=== PATIENT | female | born 2000 | race Caucasian/White ===

== ENCOUNTER 2020-05-28 20:36 | Emergency (ER) | payer MEDICAID, SELFPAY ==
--- NOTE | 2020-05-28 20:38 | USR_ITS ---
PROCEDURE INFORMATION: Exam: US First Trimester, Transabdominal and US , Transvaginal Exam date and time: 05/28/2020 8:45 PM Age: 20 years old Clinical indication: complicated by abdominal or pelvic pain; Epigastric; First trimester; Gestational age or lmp: 8 w 3d; ; Additional info: Abd pain TECHNIQUE: Imaging protocol: Real-time transabdominal obstetrical ultrasound of the maternal pelvis and a first trimester , less than 14 weeks 0 days, with image documentation. Transvaginal imaging was used for better evaluation of the fetus, adnexa, and/or cervix. COMPARISON: US gallbladder [id number] 05/28/2020 8:54 PM FINDINGS: Gestation: Intrauterine gestation. Yolk sac is unremarkable. Embryonic/ heart rate: 180 beats per minute. Placenta: Unremarkable. No subchorionic bleed. Amniotic fluid: Amniotic fluid is unremarkable for gestational age. BIOMETRY: Gestational age (AUA): 8 weeks 5 days. MATERNAL: Uterus: Unremarkable. Cervix: Unremarkable. Right adnexa: Unremarkable. Left adnexa: Unremarkable. Intraperitoneal space: No intraperitoneal free fluid. US/US OB <= 14 weeks fetus [id number] IMPRESSION: 1. Single living intrauterine with estimated gestational age of 8 weeks 5 days.
--- NOTE | 2020-05-28 20:38 | USR_ITS ---
PROCEDURE INFORMATION: Exam: US Abdomen, Limited; Right Upper Quadrant Exam date and time: 05/28/2020 8:44 PM Age: 20 years old Clinical indication: Abdominal pain; Acute; ; Additional info: Abd pain TECHNIQUE: Imaging protocol: US abdomen. Real time ultrasound with image documentation. Limited exam focused on the right upper quadrant. COMPARISON: No relevant prior studies available. FINDINGS: Liver: The liver is mildly heterogeneous and hyperechoic, suggesting fatty infiltration. No intrahepatic or extrahepatic biliary dilation identified. Gallbladder: The gallbladder is unremarkable. No gallstones, sludge, gallbladder wall thickening, or pericholecystic fluid identified. Sonographic Roy sign not present. Common bile duct: The common bile duct is within normal limits for caliber at 0.4 cm. No common bile duct stone identified. Pancreas: Limited visualization of the pancreas due to bowel gas. Visualized portion is unremarkable. Right kidney: The right kidney measures 11.4 cm in length and is unremarkable. No hydronephrosis, calculi, or masses identified involving the right kidney. US/US gall bladder [id number] IMPRESSION: 1. No gallstones identified.
[2020-05-28 20:41] VITALS: PULSE 65; RESP 22; O2SAT 99; BMI 41.5
[2020-05-28 20:46] VITALS: BP 104/41
[2020-05-28 21:15] VITALS: BP 132/53; PULSE 88; RESP 22; O2SAT 98
--- NOTE | 2020-05-28 21:37 | W.ED.ABDPA2 ---
HPI - Abdominal Pain General: Chief Complaint: Abdominal Pain Stated Complaint: ABD PAIN Time Seen by Provider: 05/28/20 20:48 History of Present Illness: HPI narrative: This patient is a 20-year-old female who was transferred here from [facility]. She was seen there for abdominal pain and had a work-up which included labs. Her white count was 16.9. Chemistry was normal with the exception of a CO2 of 20. LFTs were normal. Lipase was 27. Quantitative hCG was 79,879. Urine showed 2+ ketones and trace leukoesterase but was otherwise negative. She was given some Pepcid, Zofran, Rocephin, morphine, IV fluids and then transferred here for ultrasound. She tells me that she has had this pain off and on for a week or so. 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 She has had a ultrasound at the doctor's office that was normal. She describes her pain as being in the periumbilical area. On my evaluation she is comfortable. Ultrasounds are underway. MD elicited complaint: abdominal pain Pertinent past history: none Onset (ago): week(s) Pain Consistency: constant Location: Epigastric and Periumbilical Severity: severe Quality: cramping Radiation: none Migration to: no migration Exacerbating factors: nothing Relieving factors: nothing Associated Symptoms: Reports other (Approximately 8 weeks ); Denies chills and fever(s) Review of Systems General: Reports: 10 or more systems reviewed and unremarkable except in HPI and below Const: Denies: fever(s), chills, fatigue or malaise Eyes: Denies: change in vision ENMT: Denies: odynophagia Card: Denies: chest pain or swelling of feet/ankles Resp: Denies: dyspnea, productive cough or non-productive cough GI: Reports: abdominal pain and other (Approximately 8 weeks ) : Denies: flank pain or difficulty voiding Musc: Denies: neck pain or back pain Skin/Breast: Denies: rash Neuro: Denies: headache(s), numbness in extremities or weakness in extremities Ian/Lymph: Denies: easy bruising or easy bleeding PFSH ED PFSH: Medical History (Updated 05/29/20 @ 19:42 by Erendira Bundy MD) No pertinent past medical history Surgical History (Updated 05/29/20 @ 19:42 by Erendira Bundy MD) No pertinent past surgical history Family History (Updated 05/29/20 @ 19:42 by Erendira Bundy MD) Denies family history of CAD (coronary artery disease) Family history of premature coronary artery disease Social History (Updated 05/29/20 @ 19:42 by Erendira Bundy MD) Smoking and tobacco status: never smoked Alcohol intake: never Substance/Drug Use: never Household members: family Female Reproductive History: : 1 Physical Exam Const: COMMON NORMALS: no acute distress, patient oriented x3, no limitations and alert GENERAL APPEARANCE: cooperative and comfortable NUTRITIONAL APPEARANCE: obese HENMT: HEAD & SCALP: normal to inspection FACE & SINUS: normal facial exam Eye: GENERAL EYE: appearance normal, both eyes and all related structures Neck/C-Spine: COMMON NORMALS: supple, no meningeal signs and no JVD Chest: COMMONS NORMALS: normal inspection of the chest Resp: COMMON NORMALS: normal respiratory effort, No use of accessory muscles and clear to auscultation bilaterally AUSCULTATION: clear to auscultation bilaterally Cardio: COMMON NORMALS: no JVD, regular rate, regular rhythm and No murmurs present (Cardio) RATE: regular rate RHYTHM: regular rhythm GI: COMMON NORMALS: Normal to inspection, nondistended, normoactive bowel sounds present, Soft to palpation and non-tender INSPECTION: Yes normal to inspection AUSCULTATION: Yes normoactive bowel sounds PALPATION: Yes Soft to palpation Back/Pelvis: COMMON NORMALS: thoracic and lumbar spine normal to inspection Extremity: COMMON NORMALS: normal to inspection Neuro: COMMON NORMALS: patient oriented x3, moves all extremities, no focal motor deficits and no sensory deficits noted SENSORIUM/ORIENTATION: Yes alert MENINGEAL SIGNS: Yes no meningeal signs Psych: COMMON NORMALS: mental status grossly normal, cooperative and normal affect Skin: COMMON NORMALS: no rashes or lesions noted and turgor normal GENERAL SKIN EXAM: no rashes or lesions noted and turgor normal Course ED course: Patient is comfortable on my evaluation but the nurse that she was writhing in pain earlier when she arrived. The cause of her symptoms is not entirely clear. The ultrasound of her gallbladder is normal. LFTs and lipase are normal. She is 8 weeks and the ultrasound looked fine. She could be having reflux and she can take some [id number] medications to try to treat that. Otherwise she should follow-up with her OB doctor for further evaluation. Vital Signs: Vital signs: Vital Signs Pulse Rate 76 05/28/20 23:20 Respiratory Rate 16 05/28/20 23:20 Blood Pressure 123/76 05/28/20 23:20 Pulse Oximetry 99 05/28/20 23:20 Discharge Plan Discharge Patient Disposition: Home Clinical Impression: Abdominal pain, Condition: Stable Prescriptions: New metoclopramide HCl 10 mg tablet 10 mg PO Q6H PRN (Reason: nausea and vomiting) Qty: 14 RF: 0 Discharge Orders: Discharge Order (Routine); Ordered 05/28/20 Ordered By: Sheryl Reza Discharge Diet: Clear Liquid Discharge Activity: Resume usual activity Patient Instructions: Abdominal Pain (ED) Activity Restrictions/Additional Instructions: Return to the emergency department if new or worse symptoms. Follow-up with your ELECTRIC METER INSTALLER for further management of your symptoms. Discharge Date/Time: 05/28/20 23:10 Coding Level of Care Code ED Bellstand Attendant for Chg Fwd Exam Comprehensive
[2020-05-28 22:15] VITALS: BP 114/62; PULSE 92; RESP 22; O2SAT 97
[2020-05-28] MEDS: alum-mag-hydroxide-sime 30 mL UDC PO (22:20)
[2020-05-28] MEDS: metoclopramide 5 mg/mL SDV 2 mL IVP (22:25)
[2020-05-28 23:20] VITALS: BP 123/76; PULSE 76; RESP 16; O2SAT 99
== END 2020-05-28 23:10 | disposition home or self-care (01) ==
PROVIDERS: Emergency Provider Emergency Medicine
DX: O26.891 Other specified pregnancy related conditions, first trimester (principal); R10.9 Unspecified abdominal pain; Z3A.08 8 weeks gestation of pregnancy
CPT/HCPCS: 12345; 76705; 76801; 96374; 99283; J2765

== ENCOUNTER 2020-05-29 11:09 | Inpatient (IN) | payer MEDICAID, SELFPAY ==
[2020-05-29] VITALS (7 sets, daily range): BP systolic 116–139; BP diastolic 67–99; PULSE 56–98; RESP 14–26; TEMP 36.8; O2SAT 97–100; BMI 33.3
[2020-05-29] MEDS: sodium chloride 0.9% 1,000 ML 999 ML IV ×2 (11:45→15:14)
[2020-05-29] MEDS: ondansetron 2 mg/ML SDV 2 mL 4 MG IVP ×2 (11:45→20:48)
[2020-05-29] MEDS: morphine 4 mg/mL SDV 1 mL IVP (11:45)
[2020-05-29 11:49] LABS: Basophils % 0.3 %; Eosinophils % 0.1 %; Hemoglobin 12.3 g/dL (11.5-15.3); Lymphocytes # 2.3 10^3/uL (0.8-4.8); Lymphocytes % 15.9 %; Mean Corpuscular HGB Conc 32.4 g/dL (30.0-36.0); Mean Corpuscular Hemoglobin 26.7 pg (28.0-34.0); Mean Corpuscular Volume 82.4 fL (81-99); Mean Platelet Volume 10.8 fL (7.4-10.4); Monocytes # 0.7 10^3/uL (0.2-0.9); Monocytes % 4.4 %; Neutrophils # 11.62 10^3/uL (1.8-7.7); Nucleated Red Blood Cells % 0 %; Platelet Count 385 10^3/cmm (130-400); Red Blood Count 4.61 10^6/uL (4.1-5.3); Red Cell Distribution Width 14.8 % (12.1-15.1); White Blood Count 14.7 10^3/uL (4.0-10.0)
[2020-05-29 12:03] LABS: Alanine Aminotransferase 17 U/L (0-33); Albumin Level 4.5 g/dL (3.5-5.2); Alkaline Phosphatase 72 IU/L (35-105); Anion Gap 16.7 (5-19); Aspartate Amino Transferase 18 U/L (0-32); Blood Urea Nitrogen 8 mg/dL (6-20); Calcium 10.1 mg/dL (8.5-10.5); Carbon Dioxide 18 mmol/L (22-29); Chloride 104 mmol/L (98-107); Creatine Phosphokinase 45 U/L (26-192); Globulin 3.1 g/dL (1.3-4.6); Glomerular Filtration Rate 90.5 mL/min (90-130); Glucose 105 mg/dL (65-115); Lipase 32 U/L (13-60); Osmolality Calculated 279 mOsm/kg (285-295); Potassium 3.7 mmol/L (3.5-5.1); Sodium 135 mmol/L (136-145); Total Bilirubin 0.5 mg/dL (0.15-1.2); Total Protein 7.6 g/dL (6.6-8.7)
[2020-05-29 12:10] LABS: Add Urine Microscopic? NO
[2020-05-29 12:35] LABS: Bilirubin Urine Neg (Negative); Blood Urine Neg (Negative); Glucose Urine UA Norm (Normal); Ketones Urine 1+ (Negative); Leukocyte Esterase Urine Negative (Negative); Nitrate Urine Negative (Negative); Protein Urine Neg (Negative); Sulfosalicylic Acid Urine Negative (Negative); Urine Appearance Clear (CLEAR); Urine Color Yellow (Yellow); Urobilinogen Urine Norm (Negative); pH Urine 8 (5-7)
--- NOTE | 2020-05-29 12:56 | MR_ITS ---
WS: [id number] INDICATION: Abdominal pain TECHNIQUE: Axial 2-D fiesta, axial T2 fat sat, coronal 2-D fiesta, coronal 2-D fat sat imaging FINDINGS: MRI of the abdomen without gadolinium enhancement Appendix in the right lower quadrant is normal. No evidence of acute appendicitis. Appendix tests vis ualized in the coronal imaging. Normal visualized liver and gallbladder. Normal pancreas. Adrenal gla nds are normal. No hydronephrosis in either kidney. Normal spleen. Normal caliber abdominal aorta. In cidental fat-containing umbilical hernia. Partially visualized bowel appears normal. No evidence of h igh-grade obstruction. MR/MR abdomen wo con [id number] IMPRESSION: 1. No evidence of acute appendicitis. Appendix is normal. 2. No hydronephrosis in either kidney. 3. Normal-appearing liver and gallbladder. 4. Normal caliber abdominal aorta. 5. Tiny incidental fat-containing umbilical hernia. Notified Atilio Gramajo DO at 05/29/2020 2:25 PM.
[2020-05-29] MEDS: promethazine 25 mg/mL SDV 1 mL IM (13:24)
[2020-05-29 13:30] LABS: Lactic Sepsis W/Reflex 1.1 mmol/L (0.5-2.2)
--- NOTE | 2020-05-29 13:31 | ED_ITS ---
HPI - Abdominal Pain General: Chief Complaint: Abdominal Pain Stated Complaint: abd pain Time Seen by Provider: 05/29/20 11:14 History of Present Illness: HPI narrative: 20-year-old female returns emergency room complaining of suprapubic right lower quadrant abdominal pain she has been seen several times for this last several days she is having frequent nausea and vomiting in the emergency room she has a confirmed intrauterine with normal liver functions and a normal abdominal ultrasound yesterday. She denies any hematemesis or coffee-ground emesis . She has not had any fever no diarrhea. MD elicited complaint: abdominal pain Onset (ago): hour(s) Location: RLQ and Suprapubic Severity: severe Quality: cramping Radiation: none Migration to: no migration Exacerbating factors: nothing Relieving factors: nothing Associated Symptoms: Reports bloating, chills, nausea, poor appetite and vomiting; Denies anorexia, belching, change in bowel habits, change in stool character, coffee ground emesis, constipation, GI cramping, diarrhea, dyspepsia, dysuria, excessive flatus, fever(s), heartburn, hematochezia, hematuria, hematemesis, fecal incontinence, loose stools, melena and syncope Related Data: Date of Last Menstrual Period: 03/28/20 Review of Systems Const: Reports: chills; Denies: fever(s) ENMT: Denies: throat pain, ear or mastoid pain, nasal discharge or nasal congestion Card: Denies: syncope Resp: Denies: dyspnea, productive cough or non-productive cough GI: Reports: nausea, vomiting and bloating; Denies: hematemesis, coffee ground emesis, heartburn, diarrhea, constipation, GI cramping, belching, excessive flatus, fecal incontinence, change in bowel habits, change in stool character, hematochezia or melena : Denies: dysuria or hematuria Skin/Breast: Denies: rash or pruritus PFSH ED PFSH: Medical History (Updated 06/01/20 @ 00:05 by ) No pertinent past medical history Surgical History (Updated 05/29/20 @ 19:42 by Erendira Bundy MD) No pertinent past surgical history Family History (Updated 05/29/20 @ 19:42 by Erendira Bundy MD) Denies family history of CAD (coronary artery disease) Family history of premature coronary artery disease Social History (Updated 05/29/20 @ 19:42 by Erendira Bundy MD) Smoking and tobacco status: never smoked Alcohol intake: never Household members: family Female Reproductive History: Date of last menstrual period: 03/28/20 Physical Exam Const: COMMON NORMALS: no acute distress GENERAL APPEARANCE: cooperative and comfortable ORIENTATION/CONSCIOUSNESS: Yes awake, Yes oriented to person, Yes oriented to place and Yes oriented to time HENMT: COMMON NORMALS: normocephalic, atraumatic and hearing grossly normal bilaterally HEAD & SCALP: normocephalic and atraumatic Neck/C-Spine: COMMON NORMALS: no JVD Resp: COMMON NORMALS: normal respiratory effort, No retractions, No use of accessory muscles and clear to auscultation bilaterally AUSCULTATION: clear to auscultation bilaterally Cardio: COMMON NORMALS: no JVD, regular rate, regular rhythm and No murmurs present (Cardio) RATE: regular rate RHYTHM: regular rhythm GI: PALPATION: Yes Tenderness to palpation present (GI) (Suprapubic) Details: RLQ and No Guarding due to palpation present (GI) Extremity: COMMON NORMALS: normal to inspection, capillary refill normal, no clubbing, cyanosis or edema, no calf tenderness and no pedal edema Neuro: SENSORIUM/ORIENTATION: Yes oriented to person, Yes oriented to place and Yes oriented to time Skin: COMMON NORMALS: no rashes or lesions noted GENERAL SKIN EXAM: no rashes or lesions noted Course Vital Signs: Vital signs: Vital Signs Temperature 98.6 F 05/31/20 10:37 Pulse Rate 56 L 05/31/20 10:37 Respiratory Rate 17 05/31/20 10:37 Blood Pressure 112/69 05/31/20 10:37 Pulse Oximetry 100 05/31/20 10:37 MDM - Abdominal Pain MDM Narrative: Medical decision making narrative: Discussed with FILLING STATION ATTENDANT will admit for hyperemesis gravidarum. IV fluids and antiemetics. Lab Data: Attestation: I reviewed the patient's lab results. Labs: Lab Results 05/29/20 05/29/20 05/29/20 Range/Units 11:25 11:25 11:50 WBC 14.7 H (4.0-10.0) 10^3/ uL RBC 4.61 (4.1-5.3) 10^6/u L Hgb 12.3 (11.5-15.3) g/dL Hct 38.0 (37.0-47.0) % MCV 82.4 (81-99) fL MCH 26.7 L (28.0-34.0) pg MCHC 32.4 (30.0-36.0) g/dL RDW 14.8 (12.1-15.1) % Plt Count 385 (130-400) 10^3/c mm MPV 10.8 H (7.4-10.4) fL Neut % (Auto) 79.0 % Lymph % (Auto) 15.9 % [place] % (Auto) 4.4 % Eos % (Auto) 0.1 % Baso % (Auto) 0.3 % Neut # (Auto) 11.62 H (1.8-7.7) 10^3/u L Lymph # (Auto) 2.3 (0.8-4.8) 10^3/u L [place] # (Auto) 0.7 (0.2-0.9) 10^3/u L Eos # (Auto) 0.0 (0.0-0.8) 10^3/u L Baso # (Auto) 0.0 (0.0-0.1) 10^3/u L Nucleated RBC % (a uto) 0 % Nucleated RBCs # 0.0 /100WBC Sodium 135 L (136-145) mmol/L Potassium 3.7 (3.5-5.1) mmol/L Chloride 104 (98-107) mmol/L Carbon Dioxide 18 L (22-29) mmol/L Anion Gap 16.7 (5-19) BUN 8 (6-20) mg/dL Creatinine 0.8 (0.5-0.9) mg/dL GFR Calculation 90.5 (90-130) mL/min Glucose 105 (65-115) mg/dL Calculated Osmolal ity 279 L (285-295) mOsm/k g Lactic Acid (0.5-2.2) mmol/L Calcium 10.1 (8.5-10.5) mg/dL Total Bilirubin 0.5 (0.15-1.2) mg/dL AST 18 (0-32) U/L ALT 17 (0-33) U/L Alkaline Phosphata se 72 (35-105) IU/L Creatine Kinase 45 (26-192) U/L Total Protein 7.6 (6.6-8.7) g/dL Albumin 4.5 (3.5-5.2) g/dL Globulin 3.1 (1.3-4.6) g/dL Lipase 32 (13-60) U/L Urine Color Yellow (Yellow) Urine Appearance Clear (CLEAR) Urine pH 8 H (5-7) Ur Specific Gravit y 1.020 (1.005-1.030) Urine Protein Neg (Negative) Urine Glucose (UA) Norm (Normal) Urine Ketones 1+ H (Negative) Urine Blood Neg (Negative) Urine Nitrate Negative (Negative) Urine Bilirubin Neg (Negative) Prot Sulfosalicyli c Acd Negative (Negative) Urine Urobilinogen Norm (Negative) mg/dL Ur Leukocyte Winnie ase Negative (Negative) 1020/20 Range/Units 13:08 WBC (4.0-10.0) 10^3/ uL RBC (4.1-5.3) 10^6/u L Hgb (11.5-15.3) g/dL Hct (37.0-47.0) % MCV (81-99) fL MCH (28.0-34.0) pg MCHC (30.0-36.0) g/dL RDW (12.1-15.1) % Plt Count (130-400) 10^3/c mm MPV (7.4-10.4) fL Neut % (Auto) % Lymph % (Auto) % Lancaster % (Auto) % Eos % (Auto) % Baso % (Auto) % Neut # (Auto) (1.8-7.7) 10^3/u L Lymph # (Auto) (0.8-4.8) 10^3/u L [place] # (Auto) (0.2-0.9) 10^3/u L Eos # (Auto) (0.0-0.8) 10^3/u L Baso # (Auto) (0.0-0.1) 10^3/u L Nucleated RBC % (a uto) % Nucleated RBCs # /100WBC Sodium (136-145) mmol/L Potassium (3.5-5.1) mmol/L Chloride (98-107) mmol/L Carbon Dioxide (22-29) mmol/L Anion Gap (5-19) BUN (6-20) mg/dL Creatinine (0.5-0.9) mg/dL GFR Calculation (90-130) mL/min Glucose (65-115) mg/dL Calculated Osmolal ity (285-295) mOsm/k g Lactic Acid 1.1 (0.5-2.2) mmol/L Calcium (8.5-10.5) mg/dL Total Bilirubin (0.15-1.2) mg/dL AST (0-32) U/L ALT (0-33) U/L Alkaline Phosphata se (35-105) IU/L Creatine Kinase (26-192) U/L Total Protein (6.6-8.7) g/dL Albumin (3.5-5.2) g/dL Globulin (1.3-4.6) g/dL Lipase (13-60) U/L Urine Color (Yellow) Urine Appearance (CLEAR) Urine pH (5-7) Ur Specific Gravit y (1.005-1.030) Urine Protein (Negative) Urine Glucose (UA) (Normal) Urine Ketones (Negative) Urine Blood (Negative) Urine Nitrate (Negative) Urine Bilirubin (Negative) Prot Sulfosalicyli c Acd (Negative) Urine Urobilinogen (Negative) mg/dL Ur Leukocyte Winnie ase (Negative) Discharge Plan Discharge Patient Disposition: Admitted As Inpatient Admit Provider: Nico Harrington Clinical Impression: Abdominal pain, Condition: Stable Referrals: Nico Harrington MD [Physician] - 06/14/20 3:15 pm Discharge Diet: As Directed Discharge Activity: Increase activity as tolerated Patient Instructions: Hyperemesis Gravidarum, Hyperemesis Gravidarum (DC), Hyperemesis Gravidarum (GEN), Abdominal Pain (ED) Discharge Date/Time: 05/29/20 18:16 Coding Level of Care Code ED Mig Welder for Chg Fwd Exam Comprehensive
[2020-05-29] MEDS: D5-NS 0.45% + KCL 20 mEq 20 MEQ/1,000 ML BAG 200 MEQ IV (18:54)
--- NOTE | 2020-05-29 19:12 | ECG_ITS ---
[facility] Test Date: 2020-05-29 Pat Name: Lakia Weinstein Department: Room: 279 Gender: Female Extension Service Specialist In Charge: : 2000 Requested By: Melecio Padilla Order Number: [id number] Yue MD: Greta Dockery M.D. Measurements Intervals [place] Rate: 53 P: MT: -1 QRS: 81 QRSD: 86 T: 57 QT: 498 QTc: 468 Interpretive Statements Sinus rhythm with short MT interval with PACs PROLONGED QT INTERVAL No previous ECG available for comparison Electronically Signed On 05-30-2020 12:55:42 CDT by Greta Dockery M.D. [id number] f
--- NOTE | 2020-05-29 19:37 | P.CONIM_ITS ---
Providers/Reason For Consult Consulting Physican/Specialty*: Hospitalist service Reason for Consult*: Atypical chest pain Attending Physician: Nico Harrington MD History of Present Illness History of Present Illness Lakia Weinstein is a 20 year old female without significant past medical history presented to the hospital with chief complaint of intractable nausea vomiting for last 2 weeks. G1, , 8.5 weeks patient, hospitalist service has been consulted to evaluate her chest pain. When I entered the room patient was sitting at the bedside, patient denied any chest pain, she endorsed after burping her chest discomfort resolved, she would not call it chest pain at all. She is not experiencing shortness of breath, fever, chest discomfort on deep inspiration or change in position, she is describing this chest discomfort as burning sensation, she would not call it a pressure-like sensation, it is nonradiating. She does not carry significant cardiac history, this is her first . She is moderately active. Does not smoke or drink alcohol. Denies family history of heart disease. At the time my evaluation she is denying any sort of chest discomfort. Heart rate has been fluctuating between 55-66, normal blood pressure, at the end of my evaluation she wanted to go to the bathroom, she walked without any difficulty no recurrence of symptoms Review of Systems Const: Denies: fever(s) or chills Eyes: Denies: change in vision ENMT: Denies: throat pain Card: Denies: chest pain Resp: Denies: dyspnea GI: Reports: abdominal pain, nausea and vomiting : Denies: flank pain Musc: Denies: neck pain Skin/Breast: Denies: rash Neuro: Denies: headache(s) Psych: Denies: anxiety Endo: Denies: polyuria Ian/Lymph: Denies: easy bruising All/Imm: Denies: urticaria Meds/Allergies Home Medications and Allergies Home Medications Medication Instructions Recorded Confirmed Last Taken Type metoclopramide HCl 10 mg PO Q6H PRN #14 tab 05/28/20 Unknown Rx Allergies Allergy/AdvReac Type Severity Reaction Status Date / Time No Known Allergies Allergy Verified 05/29/20 11:20 Current Medications Current Medications Generic Name Dose Route Start Last Admin Trade Name Freq PRN Reason Stop Dose Admin Potassium Chloride/Dextrose/Sod Cl 20 meq in 1,000 mls @ 200 mls/hr 05/29/20 17:33 05/29/20 18:54 D5-Ns 0.45% + Kcl 20 Meq IV 200 mls/hr .Q5H RAJIV Administration PFSH Acute PFSH: Medical History (Updated 05/29/20 @ 19:42 by Erendira Bundy MD) No pertinent past medical history Surgical History (Updated 05/29/20 @ 19:42 by Erendira Bundy MD) No pertinent past surgical history Family History (Updated 05/29/20 @ 19:42 by Erendira Bundy MD) Denies family history of CAD (coronary artery disease) Family history of premature coronary artery disease Social History (Updated 05/29/20 @ 19:42 by Erendira Bundy MD) Smoking and tobacco status: never smoked Alcohol intake: never Substance/Drug Use: never Household members: family Female Reproductive History: Date of last menstrual period: 03/25/20 Vitals/I&O/Wt Last Vital Signs Temp 98.3 F 05/29/20 11:15 Pulse 72 05/29/20 16:57 Resp 14 05/29/20 16:57 BP 127/99 05/29/20 16:57 Pulse Ox 100 05/29/20 16:57 05/29/20 05/29/20 05/29/20 06:59 14:59 22:59 Intake Total 1000 / 1000 1000 / 2000 Balance 1000 / 1000 1000 / 2000 Weight last 48 hrs Weight 90.718 kg Physical Exam Narrative: EXAM NARRATIVE: Entered the room patient was sitting at the bedside, Does not look dehydrated Did not complain of any chest pain She wanted to go to the bathroom to void urine Heart rate 66, normal blood pressure 127 systolic pressure Lungs are clear to auscultation No acute respiratory distress S1, S2 no sign of heart failure Abdomen soft nontender Neurologically nonfocal exam legs no edema gangrene or ulcer Skin does not show any ulcers or gangrene signs A&P Assessment and plan (1) Abdominal pain: Status: Acute (2) : Status: Acute (3) Intractable nausea and vomiting: Status: Acute (4) Atypical chest pain: Status: Acute Additional A&P Information Atypical chest pain No active chest discomfort, normal hemodynamics, sinus bradycardia noted on EKG, no ischemic or infarctive changes, nonspecific T wave changes No family history of coronary disease, does not smoke or drink alcohol, her only risk factor would include higher BMI Patient is endorsing resolving of symptoms at the time of evaluation She is describing this chest pain as heartburn GI cocktail, Send troponin and D-dimer Overnight monitoring with telemetry due to bradycardia Intractable nausea vomiting Currently on antiemetics, continue fluid resuscitation Intrauterine , first trimester, management as per STITCH MARKER Consult Attestations Medical Necessity Statement: As per [employer] BUSINESS DEVELOPMENT OFFICER service Time Spent in Patient Care: (>than 50% of time spent in counselling and/or direct pt care on unit) . 30mins Coding Level of Care Code Acute Gunite Mixer for Chg Fwd Diagnoses Abdominal pain R10.9 Z34.90 Intractable nausea and vomiting R11.2 Atypical chest pain R07.89
[2020-05-29 20:26] LABS: D Dimer 0.39 ug/mIFEU (0-0.59)
[2020-05-29 20:36] LABS: Troponin T (5th) Once 6 ng/L (0-10)
[2020-05-29] MEDS: morphine 4 mg/mL SDV 1 mL 2 MG IVP (20:47)
[2020-05-30] VITALS (7 sets, daily range): BP systolic 93–138; BP diastolic 58–89; PULSE 52–91; RESP 15–24; TEMP 36.8–37.1; O2SAT 95–100
[2020-05-30] MEDS: D5-NS 0.45% + KCL 20 mEq 20 MEQ/1,000 ML BAG 200 MEQ IV ×5 (01:49→19:38)
--- NOTE | 2020-05-30 03:02 | PC.NURSE ---
Notified Dr. Bundy by phone of patient reporting chest pain and shortness of breath. Vital signs unremarkable with the exception of her heartrate - 53. Physician states EKG was normal, report interpretation states Afib but rhythm strip is Sinus Robert per Dr. Bundy. Order received for morphine 2mg IV x 1. Per Dr. Bundy, monitor BP and notify if she becomes hypotensive with bradycardia.
[2020-05-30] MEDS: morphine 4 mg/mL SDV 1 mL 2 MG IVP (03:22)
[2020-05-30 03:28] LABS: Thyroid Stimulating Hormone 0.78 uIU/mL (0.27-4.20)
[2020-05-30] MEDS: lidocaine 2% viscous 15 ML, aluminum-mag hydrox-simethicon 30 ML, sucralfate oral liq 1 GM PO (04:37)
[2020-05-30] MEDS: ondansetron 2 mg/ML SDV 2 mL 4 MG IVP ×5 (04:37→23:47)
[2020-05-30 05:56] LABS: Basophils % 0.4 %; Eosinophils # 0.1 10^3/uL (0.0-0.8); Eosinophils % 0.5 %; Hematocrit 34.4 % (37.0-47.0); Hemoglobin 10.7 g/dL (11.5-15.3); Lymphocytes # 2.3 10^3/uL (0.8-4.8); Lymphocytes % 20.8 %; Mean Corpuscular HGB Conc 31.1 g/dL (30.0-36.0); Mean Corpuscular Hemoglobin 26.5 pg (28.0-34.0); Mean Corpuscular Volume 85.1 fL (81-99); Mean Platelet Volume 10.9 fL (7.4-10.4); Monocytes # 0.7 10^3/uL (0.2-0.9); Monocytes % 6.8 %; Neutrophils # 7.78 10^3/uL (1.8-7.7); Nucleated Red Blood Cells % 0 %; Platelet Count 310 10^3/cmm (130-400); Red Blood Count 4.04 10^6/uL (4.1-5.3); Red Cell Distribution Width 14.9 % (12.1-15.1); White Blood Count 10.9 10^3/uL (4.0-10.0)
[2020-05-30 06:18] LABS: Alanine Aminotransferase 13 U/L (0-33); Albumin Level 3.9 g/dL (3.5-5.2); Alkaline Phosphatase 58 IU/L (35-105); Anion Gap 13.8 (5-19); Aspartate Amino Transferase 13 U/L (0-32); Blood Urea Nitrogen 5 mg/dL (6-20); Calcium 8.8 mg/dL (8.5-10.5); Carbon Dioxide 20 mmol/L (22-29); Chloride 104 mmol/L (98-107); Globulin 3.1 g/dL (1.3-4.6); Glomerular Filtration Rate 126.2 mL/min (90-130); Glucose 132 mg/dL (65-115); Osmolality Calculated 277 mOsm/kg (285-295); Potassium 3.8 mmol/L (3.5-5.1); Sodium 134 mmol/L (136-145); Total Bilirubin 0.5 mg/dL (0.15-1.2)
--- NOTE | 2020-05-30 08:42 | PM.OPSURHP ---
Providers/Chief Complaint Admitting Physician: Nico Harrington MD Chief Complaint: abd pain History of Present Illness Lakia Weinstein is a 20 year old female who was transferred here from [facility] and evaluated in the ER here. At the ER she was seen there for abdominal pain and had a work-up which included labs. Her white count was 16.9. Chemistry was normal with the exception of a CO2 of 20. LFTs were normal. Lipase was 27. Quantitative hCG was 79,879. Urine showed 2+ ketones and trace leukoesterase but was otherwise negative. She was given some Pepcid, Zofran, Rocephin, morphine, IV fluids and then transferred here for ultrasound. She tells me that she has had this pain off and on for a week or so. 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 She has had a ultrasound at the doctor's office that was normal. She describes her pain as being in the periumbilical area. Consulted by ER for admision for IV hydration and antiemetic emdication. Review of Systems Const: Denies: fever(s) or chills Eyes: Denies: change in vision ENMT: Denies: throat pain Card: Denies: chest pain Resp: Denies: dyspnea GI: Reports: abdominal pain, nausea and vomiting : Denies: flank pain Musc: Denies: neck pain Skin/Breast: Denies: rash Neuro: Denies: headache(s) Psych: Denies: anxiety Endo: Denies: polyuria Ian/Lymph: Denies: easy bruising All/Imm: Denies: urticaria Medications/Allergies Home Medications Medication Instructions Recorded Confirmed Last Taken Type metoclopramide HCl 10 mg PO Q6H PRN #14 tab 05/28/20 Unknown Rx Allergies Allergy/AdvReac Type Severity Reaction Status Date / Time No Known Allergies Allergy Verified 05/29/20 11:20 PFSH PFSH: Medical History (Updated 05/30/20 @ 08:44 by Nico Harrington MD) No pertinent past medical history Surgical History (Updated 05/29/20 @ 19:42 by Erendira Bundy MD) No pertinent past surgical history Family History (Updated 05/29/20 @ 19:42 by Erendira Bundy MD) Denies family history of CAD (coronary artery disease) Family history of premature coronary artery disease Social History (Updated 05/29/20 @ 19:42 by Erendira Bundy MD) Smoking and tobacco status: never smoked Alcohol intake: never Substance/Drug Use: never Household members: family Female Reproductive History: Date of last menstrual period: 03/25/20 Vital Signs Vitals Signs: Last Vital Signs Temp 98.7 F 05/30/20 04:52 Pulse 89 05/30/20 07:59 Resp 19 H 05/30/20 04:52 BP 110/81 05/30/20 04:52 Pulse Ox 99 05/30/20 07:59 Weight: Weight last 48 hrs Weight 90.718 kg Physical Exam Const: COMMON NORMALS: no acute distress, patient oriented x3, no limitations and alert GENERAL APPEARANCE: cooperative and comfortable NUTRITIONAL APPEARANCE: obese HENMT: HEAD & SCALP: normal to inspection FACE & SINUS: normal facial exam Eye: GENERAL EYE: appearance normal, both eyes and all related structures Neck/C-Spine: COMMON NORMALS: supple, no meningeal signs and no JVD Chest: COMMONS NORMALS: normal inspection of the chest Resp: COMMON NORMALS: normal respiratory effort, No use of accessory muscles and clear to auscultation bilaterally AUSCULTATION: clear to auscultation bilaterally Cardio: COMMON NORMALS: no JVD, regular rate, regular rhythm and No murmurs present (Cardio) RATE: regular rate RHYTHM: regular rhythm GI: COMMON NORMALS: Normal to inspection, nondistended, normoactive bowel sounds present, Soft to palpation and non-tender INSPECTION: Yes normal to inspection AUSCULTATION: Yes normoactive bowel sounds PALPATION: Yes Soft to palpation Back/Pelvis: COMMON NORMALS: thoracic and lumbar spine normal to inspection Extremity: COMMON NORMALS: normal to inspection Neuro: COMMON NORMALS: patient oriented x3, moves all extremities, no focal motor deficits and no sensory deficits noted SENSORIUM/ORIENTATION: Yes alert MENINGEAL SIGNS: Yes no meningeal signs Psych: COMMON NORMALS: mental status grossly normal, cooperative and normal affect Skin: COMMON NORMALS: no rashes or lesions noted and turgor normal GENERAL SKIN EXAM: no rashes or lesions noted and turgor normal A&P Assessment and plan (1) Hyperemesis gravidarum: The patient admitted for IV hydration and IV antiemetic medication. Status: Acute Coding Level of Care Code Acute Emergency Medical Technician Basic for Chg Fwd Diagnoses Hyperemesis gravidarum O21.0
--- NOTE | 2020-05-30 09:13 | ECG_ITS ---
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 Measurements Intervals [place] Rate: 55 P: CT: -1 QRS: 70 QRSD: 85 T: 47 QT: 474 QTc: 457 Interpretive Statements Sinus rhythm with short CT interval with PACs Compared to ECG 05/29/2020 14:40:51 Prolonged QT interval no longer present Electronically Signed On 05-30-2020 12:56:35 CDT by Greta Dockery M.D. [id number]
--- NOTE | 2020-05-30 09:55 | P.PN_ITS ---
Subjective Subjective: Interval history: Patient resting comfortably in bed at time of exam this morning. She reported some occasional nausea. She stated that she was wanting to take a hot shower this morning, she reports this often helps with her nausea. Discussed with patient and asked her if she smokes marijuana, she reported yes and stated that it helps out with her stomach pain and nausea. She stated that she frequently takes hot showers at home due to her nausea. Patient reports that her abdominal pain has improved, typically only when she lies flat, improves whenever she sits up. She denies any diarrhea or constipation. Patient reports that she has been taking a vitamin. Vitals/I&O/Wt Last Vital Signs Temp 98.7 F 05/30/20 04:52 Pulse 89 05/30/20 07:59 Resp 19 H 05/30/20 04:52 BP 110/81 05/30/20 04:52 Pulse Ox 99 05/30/20 07:59 05/29/20 05/30/20 05/30/20 22:59 06:59 14:59 Intake Total 999 1556.667 / 3556.667 706.667 / 706.667 Balance 999 1556.667 / 3556.667 706.667 / 706.667 Weight last 48 hrs Weight 90.718 kg Physical Exam Const: COMMON NORMALS: patient oriented x3 and alert GENERAL APPEARANCE: cooperative ORIENTATION/CONSCIOUSNESS: Yes awake, Yes oriented to person, Yes oriented to place and Yes oriented to time HENMT: COMMON NORMALS: normocephalic and atraumatic HEAD & SCALP: normocephalic and atraumatic Eye: COMMON NORMALS: Equal, round and reactive pupils present PUPIL: Yes Equal, round and reactive pupils present Neck/C-Spine: COMMON NORMALS: supple GENERAL: Yes normal visual inspection Resp: COMMON NORMALS: normal respiratory effort and clear to auscultation bilaterally EFFORT & INSPECTION: Yes able to speak in complete sentences AUSCULTATION: clear to auscultation bilaterally, no rhonchi and no wheezes Cardio: COMMON NORMALS: regular rate, regular rhythm and No murmurs present (Cardio) RATE: regular rate RHYTHM: regular rhythm GI: COMMON NORMALS: Soft to palpation and non-tender INSPECTION: No abdominal distension AUSCULTATION: Yes normoactive bowel sounds PALPATION: Yes Soft to palpation Extremity: COMMON NORMALS: no clubbing, cyanosis or edema and no calf tenderness Neuro: COMMON NORMALS: patient oriented x3, CN's II-XII intact bilaterally, moves all extremities and no focal motor deficits SENSORIUM/ORIENTATION: Yes alert, Yes oriented to person, Yes oriented to place and Yes oriented to time SPEECH: speech normal Psych: COMMON NORMALS: mental status grossly normal and cooperative Skin: COMMON NORMALS: no rashes or lesions noted GENERAL SKIN EXAM: no rashes or lesions noted Data : 05/30/20 05:38 05/30/20 05:38 A&P Assessment and plan (1) Abdominal pain: That patient reports is worse whenever she lies flat and improved whenever she sits up, likely secondary to round ligament pain due to MRI as noted above Status: Acute (2) : Patient is a 20-year-old G1, P0 at 9 weeks and 3 days gestation by her LMP with complicated by THC use and hyperemesis. Follow-up with INSTRUMENTATION INSTRUCTOR recommendations Status: Acute (3) Intractable nausea and vomiting: Believed to be multifactorial secondary to first trimester and also question of hyperemesis induced cannabinoid syndrome. Strongly encourage patient to avoid further cannabinoid use Status: Acute (4) Atypical chest pain: Related to GERD No further chest pain reported, no shortness of breath Repeat EKG this morning just for QT monitoring Status: Acute Attestations Medical Necessity Statement*: Per primary attending Coding Level of Care Code Acute Farm Forestry And Garden Workers for Chg Fwd Exam Comprehensive Diagnoses Abdominal pain R10.9 Z34.90 Intractable nausea and vomiting R11.2 Atypical chest pain R07.89
[2020-05-31] VITALS: BP 99/60; PULSE 54; RESP 16; TEMP 36.6; O2SAT 100
[2020-05-31] MEDS: D5-NS 0.45% + KCL 20 mEq 20 MEQ/1,000 ML BAG 200 MEQ IV ×2 (01:47→06:09)
[2020-05-31 04:00] VITALS: BP 115/69; PULSE 75; RESP 17; TEMP 36.4; O2SAT 98
[2020-05-31] MEDS: ondansetron 2 mg/ML SDV 2 mL 4 MG IVP (06:09)
[2020-05-31 08:00] VITALS: BP 112/69; PULSE 56; RESP 17; TEMP 37; O2SAT 100
[2020-05-31 08:15] VITALS: BP 112/69; PULSE 56; RESP 17; TEMP 37; O2SAT 100
--- NOTE | 2020-05-31 08:56 | PM.OBGYDC ---
Discharge Providers FACILITY PRACTICE SPECIALIST Date of Admission: 05/29/20 15:17 Date of Discharge: 05/31/20 Attending Provider at Admission: Nico Harrington MD Attending Provider at Discharge: Nico Harrington MD Diagnoses at Discharge Discharge Diagnosis (1) Abdominal pain: Status: Acute (2) : Status: Acute (3) Intractable nausea and vomiting: Status: Acute (4) Atypical chest pain: Status: Acute (5) Hyperemesis gravidarum: Status: Acute Reason for Visit Reason for Visit: abd pain Hospital Course Hospital Course: 20-year-old female G1, P0, approximately EGA of 8 weeks came to the emergency room complaining of abdominal pain nausea and vomiting. Was admitted to the hospital due to hyperemesis gravidarum for IV fluids, antiemetic therapy and pain control. She have improved symptoms. Afebrile hemodynamically stable tolerating diet well. Ambulating without difficulty. Instructed to follow-up with her primary care provider and care provider JESSICA. Physical Exam Const: COMMON NORMALS: patient oriented x3 and alert GENERAL APPEARANCE: cooperative ORIENTATION/CONSCIOUSNESS: Yes awake, Yes oriented to person, Yes oriented to place and Yes oriented to time HENMT: COMMON NORMALS: normocephalic and atraumatic HEAD & SCALP: normocephalic and atraumatic Eye: COMMON NORMALS: Equal, round and reactive pupils present PUPIL: Yes Equal, round and reactive pupils present Neck/C-Spine: COMMON NORMALS: supple GENERAL: Yes normal visual inspection Resp: COMMON NORMALS: normal respiratory effort and clear to auscultation bilaterally EFFORT & INSPECTION: Yes able to speak in complete sentences AUSCULTATION: clear to auscultation bilaterally, no rhonchi and no wheezes Cardio: COMMON NORMALS: regular rate, regular rhythm and No murmurs present (Cardio) RATE: regular rate RHYTHM: regular rhythm GI: COMMON NORMALS: Soft to palpation and non-tender INSPECTION: No abdominal distension AUSCULTATION: Yes normoactive bowel sounds PALPATION: Yes Soft to palpation Extremity: COMMON NORMALS: no clubbing, cyanosis or edema and no calf tenderness Neuro: COMMON NORMALS: patient oriented x3, CN's II-XII intact bilaterally, moves all extremities and no focal motor deficits SENSORIUM/ORIENTATION: Yes alert, Yes oriented to person, Yes oriented to place and Yes oriented to time SPEECH: speech normal Psych: COMMON NORMALS: mental status grossly normal and cooperative Skin: COMMON NORMALS: no rashes or lesions noted GENERAL SKIN EXAM: no rashes or lesions noted Discharge Data Data Completed and Pending: Completed Studies During Hospitalization Category Date Time Status MR abdomen wo con [id number] Stat MRI 05/29/20 12:56 Completed Vitals: Last Vital Signs Temp 98.6 F 05/31/20 08:00 Pulse 56 L 05/31/20 08:00 Resp 17 05/31/20 08:00 BP 112/69 05/31/20 08:00 Pulse Ox 100 05/31/20 08:00 Discharge Plan Discharge Patient Disposition: Home Condition: Stable Prescriptions: No Action metoclopramide HCl 10 mg tablet 10 mg PO Q6H PRN (Reason: nausea and vomiting) Qty: 14 RF: 0 Discharge Orders: Discharge Order (Routine); Ordered 05/31/20 Ordered By: Nico Harrington Referrals: Nico Harrington MD [Physician] - 2 weeks Discharge Diet: As Directed Discharge Activity: Increase activity as tolerated Patient Instructions: Hyperemesis Gravidarum, Hyperemesis Gravidarum (DC), Hyperemesis Gravidarum (GEN), Abdominal Pain (ED) Discharge Attestations FACILITY PRACTICE SPECIALIST Time Spent in Discharge Care*: greater than 30 min Coding Level of Care Code Acute Lead Front End Developer for Chg Fwd Diagnoses Abdominal pain R10.9 Z34.90 Intractable nausea and vomiting R11.2 Atypical chest pain R07.89 Hyperemesis gravidarum O21.0
--- NOTE | 2020-05-31 09:09 | PM.PN ---
Subjective Subjective: Interval history: Patient awake in bed at time of exam today. Denied any concerns. Reported that she was feeling better today. Discussed with her plan for discharge to home, she verbalized understanding and agreed with plan. Discussed with her and encouraged cessation from THC abuse, she verbalized understanding Vitals/I&O/Wt Last Vital Signs Temp 98.6 F 05/31/20 08:00 Pulse 56 L 05/31/20 08:00 Resp 17 05/31/20 08:00 BP 112/69 05/31/20 08:00 Pulse Ox 100 05/31/20 08:00 05/30/20 05/31/20 05/31/20 22:59 06:59 14:59 Intake Total 1036.667 / 2803.334 1873.333 / 4676.667 Output Total 1300 / 1300 800 / 2100 Balance -263.333 / 5574.747 5930.333 / 2576.667 Weight last 48 hrs Weight 90.718 kg Physical Exam Const: COMMON NORMALS: patient oriented x3 and alert GENERAL APPEARANCE: cooperative ORIENTATION/CONSCIOUSNESS: Yes awake, Yes oriented to person, Yes oriented to place and Yes oriented to time HENMT: COMMON NORMALS: normocephalic and atraumatic HEAD & SCALP: normocephalic and atraumatic Eye: COMMON NORMALS: Equal, round and reactive pupils present PUPIL: Yes Equal, round and reactive pupils present Neck/C-Spine: COMMON NORMALS: supple GENERAL: Yes normal visual inspection Resp: COMMON NORMALS: normal respiratory effort and clear to auscultation bilaterally EFFORT & INSPECTION: Yes able to speak in complete sentences AUSCULTATION: clear to auscultation bilaterally, no rhonchi and no wheezes Cardio: COMMON NORMALS: regular rate, regular rhythm and No murmurs present (Cardio) RATE: regular rate RHYTHM: regular rhythm GI: COMMON NORMALS: Soft to palpation and non-tender AUSCULTATION: Yes normoactive bowel sounds PALPATION: Yes Soft to palpation Neuro: COMMON NORMALS: patient oriented x3, CN's II-XII intact bilaterally, moves all extremities and no focal motor deficits SENSORIUM/ORIENTATION: Yes alert, Yes oriented to person, Yes oriented to place and Yes oriented to time SPEECH: speech normal Psych: COMMON NORMALS: mental status grossly normal and cooperative Data : 05/30/20 05:38 05/30/20 05:38 A&P Assessment and plan (1) Abdominal pain: Status post MRI, no acute abnormality Likely related Discharged home today Status: Acute (2) : Patient is a 20-year-old G1, P0 at 9 weeks and 4 days gestation by her LMP with complicated by THC use and hyperemesis. Follow-up with TONNAGE COMPILATION CLERK recommendations Status: Acute (3) Intractable nausea and vomiting: Believed to be multifactorial secondary to first trimester and also question of hyperemesis induced cannabinoid syndrome. Strongly encourage patient to avoid further cannabinoid use Status: Acute (4) Atypical chest pain: Related to GERD No further chest pain reported, no shortness of breath Repeat EKG showed normal QT Status: Acute Additional A&P Information Atypical chest pain: Resolved, likely related to GERD Currently on antiemetics, continue fluid resuscitation Intrauterine , first trimester, management as per TONNAGE COMPILATION CLERK Attestations Medical Necessity Statement*: Discharge per primary attending, will sign off Coding Level of Care Code Acute Operator Vacuum for g Fwd Diagnoses Abdominal pain R10.9 Z34.90 Intractable nausea and vomiting R11.2 Atypical chest pain R07.89
[2020-05-31 10:37] VITALS: BP 112/69; PULSE 56; RESP 17; TEMP 37; O2SAT 100
--- NOTE | 2020-05-31 11:27 | PC.NURSE ---
Iv Dc'd ,bleeding controlled with 2x2 and coban, Discharge instructions given, voiced full understanding. To main entrance via wheelchair to private vehicle with zero difficulty
== END 2020-05-31 11:27 | disposition home or self-care (01) | DRG 832 ==
LOC: ER 13:34 → MEDSURG 17:47
PROVIDERS: Internal Medicine; Admitting Provider Obstetrics & Gynecology; Emergency Provider Family Medicine; Visit Provider Obstetrics & Gynecology
DX: O21.0 Mild hyperemesis gravidarum (principal); O99.321 Drug use complicating pregnancy, first trimester; Z3A.09 9 weeks gestation of pregnancy; K21.9 Gastro-esophageal reflux disease without esophagitis; O26.891 Other specified pregnancy related conditions, first trimester; F12.90 Cannabis use, unspecified, uncomplicated
CPT/HCPCS: 12345; 36415; 74181; 80053; 81003; 82550; 83605; 83690; 84443; 84484; 85025; 85378; 93005; 94762; 96361; 96374; 96375; 99283; 99285; G0378; J2270; J2405; J2550; J7030

== ENCOUNTER 2020-06-27 05:05 | Emergency (ER) | payer MEDICAID, SELFPAY ==
[2020-06-27 05:11] VITALS: BP 116/64; PULSE 97; RESP 18; TEMP 36.8; O2SAT 98; BMI 41.1
--- NOTE | 2020-06-27 05:37 | W.ED.ABDPA2 ---
Documented by User: Sheryl Reza MD 06/28/20 11:03 HPI - Abdominal Pain General: Chief Complaint: Abdominal Pain Stated Complaint: Abd pain 13 weeks preg Time Seen by Provider: 06/27/20 05:29 History of Present Illness: HPI narrative: This patient is a 20-year-old female who presents today with abdominal pain. She is 13 weeks and for the last month has been having abdominal pain similar to what she is having today. She indicates the epigastric area. She has had ultrasounds looking at her gallbladder and an ultrasound confirming an IUP. Her TUBE REBUILDER is at [facility]. She was admitted here for intractable nausea and vomiting at the end of May. Apparently there is nothing different about her symptoms today. She saw her TUBE REBUILDER yesterday for the same thing and is taking metoclopramide at home. MD elicited complaint: abdominal pain Pertinent past history: none Onset (ago): month(s) (1) Pain Consistency: intermittent Location: Epigastric Severity: severe Quality: sharp Radiation: none Migration to: no migration Exacerbating factors: nothing Relieving factors: nothing Associated Symptoms: Reports nausea and vomiting; Denies chills and fever(s) Related Data: Date of Last Menstrual Period: 03/24/20 Review of Systems General: Reports: 10 or more systems reviewed and unremarkable except in HPI and below Const: Denies: fever(s), chills, fatigue or malaise Eyes: Denies: change in vision ENMT: Denies: odynophagia Card: Denies: chest pain or swelling of feet/ankles Resp: Denies: dyspnea, productive cough or non-productive cough GI: Reports: abdominal pain, nausea and vomiting : Denies: flank pain or difficulty voiding Musc: Denies: neck pain or back pain Skin/Breast: Denies: rash Neuro: Denies: headache(s), numbness in extremities or weakness in extremities Ian/Lymph: Denies: easy bruising or easy bleeding PFSH ED PFSH: Medical History No pertinent past medical history Surgical History No pertinent past surgical history Family History Denies family history of CAD (coronary artery disease) Family history of premature coronary artery disease Social History Smoking and tobacco status: never smoked Alcohol intake: never Household members: family Female Reproductive History: Date of last menstrual period: 03/24/20 Physical Exam Const: COMMON NORMALS: patient oriented x3, no limitations and alert GENERAL APPEARANCE: cooperative, in distress and anxious NUTRITIONAL APPEARANCE: obese morbidly obese HENMT: HEAD & SCALP: normal to inspection FACE & SINUS: normal facial exam Eye: GENERAL EYE: appearance normal, both eyes and all related structures Neck/C-Spine: COMMON NORMALS: supple, no meningeal signs and no JVD Chest: COMMONS NORMALS: normal inspection of the chest Resp: COMMON NORMALS: normal respiratory effort, No use of accessory muscles and clear to auscultation bilaterally AUSCULTATION: clear to auscultation bilaterally Cardio: COMMON NORMALS: no JVD, regular rate, regular rhythm and No murmurs present (Cardio) RATE: regular rate RHYTHM: regular rhythm GI: COMMON NORMALS: Normal to inspection, nondistended, normoactive bowel sounds present, Soft to palpation and non-tender INSPECTION: Yes normal to inspection AUSCULTATION: Yes normoactive bowel sounds PALPATION: Yes Soft to palpation and Yes Tenderness to palpation present (GI) (Epigastric) Back/Pelvis: COMMON NORMALS: thoracic and lumbar spine normal to inspection Extremity: COMMON NORMALS: normal to inspection Neuro: COMMON NORMALS: patient oriented x3, moves all extremities, no focal motor deficits and no sensory deficits noted SENSORIUM/ORIENTATION: Yes alert MENINGEAL SIGNS: Yes no meningeal signs Psych: COMMON NORMALS: mental status grossly normal, cooperative and normal affect Skin: COMMON NORMALS: no rashes or lesions noted and turgor normal GENERAL SKIN EXAM: no rashes or lesions noted and turgor normal Course ED course: Patient has had fairly extensive work-up for this. Reviewed her ultrasound from May 29 that it was negative for any stones or signs of infection. We will repeat labs for white count and electrolytes. Vital Signs: Vital signs: Vital Signs Temperature 98.3 F 06/27/20 05:11 Pulse Rate 84 06/27/20 10:18 Respiratory Rate 18 06/27/20 10:18 Blood Pressure 113/44 06/27/20 10:18 Pulse Oximetry 96 06/27/20 10:18 MDM - Abdominal Pain Lab Data: Labs: Lab Results 06/27/20 06/27/20 06/27/20 Range/Units 05:40 05:40 07:51 WBC 10.1 H (4.0-10.0) 10^3/ uL RBC 4.50 (4.1-5.3) 10^6/u L Hgb 12.1 (11.5-15.3) g/dL Hct 37.8 (37.0-47.0) % MCV 84.0 (81-99) fL MCH 26.9 L (28.0-34.0) pg MCHC 32.0 (30.0-36.0) g/dL RDW 15.5 H (12.1-15.1) % Plt Count 304 (130-400) 10^3/c mm MPV 10.7 H (7.4-10.4) fL Neut % (Auto) 78.3 % Lymph % (Auto) 16.2 % [place] % (Auto) 4.4 % Eos % (Auto) 0.5 % Baso % (Auto) 0.3 % Neut # (Auto) 7.92 H (1.8-7.7) 10^3/u L Lymph # (Auto) 1.6 (0.8-4.8) 10^3/u L [place] # (Auto) 0.4 (0.2-0.9) 10^3/u L Eos # (Auto) 0.1 (0.0-0.8) 10^3/u L Baso # (Auto) 0.0 (0.0-0.1) 10^3/u L Nucleated RBC % (a uto) 0 % Nucleated RBCs # 0.0 /100WBC Sodium 137 (136-145) mmol/L Potassium 3.9 (3.5-5.1) mmol/L Chloride 103 (98-107) mmol/L Carbon Dioxide 20 L (22-29) mmol/L Anion Gap 17.9 (5-19) BUN 14 (6-20) mg/dL Creatinine 0.5 (0.5-0.9) mg/dL GFR Calculation 155.7 H (90-130) mL/min Glucose 115 (65-115) mg/dL Calculated Osmolal ity 285 (285-295) mOsm/k g Calcium 9.9 (8.5-10.5) mg/dL Total Bilirubin 0.4 (0.15-1.2) mg/dL AST 23 (0-32) U/L ALT 20 (0-33) U/L Alkaline Phosphata se 56 (35-105) IU/L Total Protein 8.0 (6.6-8.7) g/dL Albumin 4.3 (3.5-5.2) g/dL Globulin 3.7 (1.3-4.6) g/dL Lipase 26 (13-60) U/L Urine Color Yellow (Yellow) Urine Appearance Clear (CLEAR) Urine pH 5.0 (5-7) Ur Specific Gravit y 1.025 (1.005-1.030) Urine Protein Neg (Negative) Urine Glucose (UA) Norm (Normal) Urine Ketones 2+ H (Negative) Urine Blood Neg (Negative) Urine Nitrate Negative (Negative) Urine Bilirubin 1+ H (Negative) Urine Urobilinogen 4 H (Negative) mg/dL Ur Leukocyte Winnie ase Negative (Negative) Discharge Plan Discharge Patient Disposition: Home Clinical Impression: , Hyperemesis gravidarum Condition: Stable Prescriptions: New Diclegis 10-10 mg tablet,delayed release (DR/EC) 1 tab PO BID Qty: 60 RF: 0 No Action metoclopramide HCl 10 mg tablet 10 mg PO Q6H PRN (Reason: nausea and vomiting) Qty: 14 RF: 0 Discharge Orders: Discharge Order (Routine); Ordered 06/27/20 Ordered By: Atilio Gramajo Sign Out Sign Out Data: Patient Sign Out occurred on 06/27/20 at 06:56. Patient's care was discussed, and care was transferred from to Atilio Gramajo DO. Coding Level of Care Code ED Tractor Mechanic Apprentice for Chg Fwd Exam Comprehensive Documented by User: Atilio Gramajo DO 06/27/20 11:30 HPI - Abdominal Pain General: Chief Complaint: Abdominal Pain Stated Complaint: Abd pain 13 weeks preg Time Seen by Provider: 06/27/20 05:29 [facility] ED PFSH: Medical History No pertinent past medical history Surgical History No pertinent past surgical history Family History Denies family history of CAD (coronary artery disease) Family history of premature coronary artery disease Social History Smoking and tobacco status: never smoked Alcohol intake: never Household members: family Course Vital Signs: Vital signs: Vital Signs Temperature 98.3 F 06/27/20 05:11 Pulse Rate 84 06/27/20 10:18 Respiratory Rate 18 06/27/20 10:18 Blood Pressure 113/44 06/27/20 10:18 Pulse Oximetry 96 06/27/20 10:18 MDM - Abdominal Pain MDM Narrative: Medical decision making narrative: Reviewed findings with the patient. We will go ahead and start her on Diclegis just start 2 at at bedtime and increase to 1 in the morning or 2 a day at bedtime if not improving after 2 days. Clear liquid diet continue the Reglan follow-up with her primary OB in the next few days to review efficacy of the Diclegis to see if it needs to be increased further. Lab Data: Labs: Lab Results 06/27/20 06/27/20 06/27/20 Range/Units 05:40 05:40 07:51 WBC 10.1 H (4.0-10.0) 10^3/ uL RBC 4.50 (4.1-5.3) 10^6/u L Hgb 12.1 (11.5-15.3) g/dL Hct 37.8 (37.0-47.0) % MCV 84.0 (81-99) fL MCH 26.9 L (28.0-34.0) pg MCHC 32.0 (30.0-36.0) g/dL RDW 15.5 H (12.1-15.1) % Plt Count 304 (130-400) 10^3/c mm MPV 10.7 H (7.4-10.4) fL Neut % (Auto) 78.3 % Lymph % (Auto) 16.2 % [place] % (Auto) 4.4 % Eos % (Auto) 0.5 % Baso % (Auto) 0.3 % Neut # (Auto) 7.92 H (1.8-7.7) 10^3/u L Lymph # (Auto) 1.6 (0.8-4.8) 10^3/u L [place] # (Auto) 0.4 (0.2-0.9) 10^3/u L Eos # (Auto) 0.1 (0.0-0.8) 10^3/u L Baso # (Auto) 0.0 (0.0-0.1) 10^3/u L Nucleated RBC % (a uto) 0 % Nucleated RBCs # 0.0 /100WBC Sodium 137 (136-145) mmol/L Potassium 3.9 (3.5-5.1) mmol/L Chloride 103 (98-107) mmol/L Carbon Dioxide 20 L (22-29) mmol/L Anion Gap 17.9 (5-19) BUN 14 (6-20) mg/dL Creatinine 0.5 (0.5-0.9) mg/dL GFR Calculation 155.7 H (90-130) mL/min Glucose 115 (65-115) mg/dL Calculated Osmolal ity 285 (285-295) mOsm/k g Calcium 9.9 (8.5-10.5) mg/dL Total Bilirubin 0.4 (0.15-1.2) mg/dL AST 23 (0-32) U/L ALT 20 (0-33) U/L Alkaline Phosphata se 56 (35-105) IU/L Total Protein 8.0 (6.6-8.7) g/dL Albumin 4.3 (3.5-5.2) g/dL Globulin 3.7 (1.3-4.6) g/dL Lipase 26 (13-60) U/L Urine Color Yellow (Yellow) Urine Appearance Clear (CLEAR) Urine pH 5.0 (5-7) Ur Specific Gravit y 1.025 (1.005-1.030) Urine Protein Neg (Negative) Urine Glucose (UA) Norm (Normal) Urine Ketones 2+ H (Negative) Urine Blood Neg (Negative) Urine Nitrate Negative (Negative) Urine Bilirubin 1+ H (Negative) Urine Urobilinogen 4 H (Negative) mg/dL Ur Leukocyte Winn[place] ase Negative (Negative) Discharge Plan Discharge Patient Disposition: Home Clinical Impression: , Hyperemesis gravidarum Condition: Stable Prescriptions: New Diclegis 10-10 mg tablet,delayed release (DR/EC) 1 tab PO BID Qty: 60 RF: 0 No Action metoclopramide HCl 10 mg tablet 10 mg PO Q6H PRN (Reason: nausea and vomiting) Qty: 14 RF: 0 Discharge Orders: Discharge Order (Routine); Ordered 06/27/20 Ordered By: Atilio Gramajo Sign Out Sign Out Data: Patient Sign Out occurred on 06/27/20 at 06:56. Patient's care was discussed, and care was transferred from to Atilio Gramajo DO. Coding Level of Care Code ED Tractor Mechanic Apprentice for Chg Fwd Exam Comprehensive
[2020-06-27] MEDS: alum-mag-hydroxide-sime 30 mL UDC PO (05:40)
[2020-06-27] MEDS: sodium chloride 0.9% 1,000 ML 999 ML IV ×2 (05:41→08:33)
[2020-06-27] MEDS: ondansetron 2 mg/ML SDV 2 mL 4 MG IVP (05:42)
[2020-06-27] MEDS: famotidine 20 mg/2 mL INJ 40 MG IVP (05:43)
[2020-06-27 05:49] LABS: Basophils % 0.3 %; Eosinophils # 0.1 10^3/uL (0.0-0.8); Eosinophils % 0.5 %; Hematocrit 37.8 % (37.0-47.0); Hemoglobin 12.1 g/dL (11.5-15.3); Lymphocytes # 1.6 10^3/uL (0.8-4.8); Lymphocytes % 16.2 %; Mean Corpuscular Hemoglobin 26.9 pg (28.0-34.0); Mean Platelet Volume 10.7 fL (7.4-10.4); Monocytes # 0.4 10^3/uL (0.2-0.9); Monocytes % 4.4 %; Neutrophils # 7.92 10^3/uL (1.8-7.7); Neutrophils % 78.3 %; Nucleated Red Blood Cells % 0 %; Platelet Count 304 10^3/cmm (130-400); Red Cell Distribution Width 15.5 % (12.1-15.1); White Blood Count 10.1 10^3/uL (4.0-10.0)
[2020-06-27 05:51] VITALS: BP 124/70; PULSE 78; O2SAT 98
[2020-06-27 06:15] LABS: Alanine Aminotransferase 20 U/L (0-33); Albumin Level 4.3 g/dL (3.5-5.2); Alkaline Phosphatase 56 IU/L (35-105); Anion Gap 17.9 (5-19); Aspartate Amino Transferase 23 U/L (0-32); Blood Urea Nitrogen 14 mg/dL (6-20); Calcium 9.9 mg/dL (8.5-10.5); Carbon Dioxide 20 mmol/L (22-29); Chloride 103 mmol/L (98-107); Globulin 3.7 g/dL (1.3-4.6); Glomerular Filtration Rate 155.7 mL/min (90-130); Glucose 115 mg/dL (65-115); Lipase 26 U/L (13-60); Osmolality Calculated 285 mOsm/kg (285-295); Potassium 3.9 mmol/L (3.5-5.1); Sodium 137 mmol/L (136-145); Total Bilirubin 0.4 mg/dL (0.15-1.2)
[2020-06-27 06:36] VITALS: BP 140/88; PULSE 99; O2SAT 96
[2020-06-27 07:43] VITALS: BP 107/56; PULSE 86; RESP 18; O2SAT 100
[2020-06-27 07:44] VITALS: O2SAT 100
[2020-06-27 07:55] LABS: Add Urine Microscopic? NO
[2020-06-27 08:07] LABS: Specific Gravity, Urine 1.025 (1.005-1.030); Urine Appearance Clear (CLEAR); Urine Color Yellow (Yellow)
[2020-06-27 08:08] LABS: Bilirubin Urine 1+ (Negative); Blood Urine Neg (Negative); Glucose Urine UA Norm (Normal); Ketones Urine 2+ (Negative); Leukocyte Esterase Urine Negative (Negative); Nitrate Urine Negative (Negative); Protein Urine Neg (Negative); Urobilinogen Urine 4 mg/dL (Negative)
[2020-06-27 10:18] VITALS: BP 113/44; PULSE 84; RESP 18; O2SAT 96
== END 2020-06-27 10:32 | disposition home or self-care (01) ==
PROVIDERS: Emergency Medicine; Emergency Provider Family Medicine
DX: O21.0 Mild hyperemesis gravidarum (principal); Z3A.13 13 weeks gestation of pregnancy
CPT/HCPCS: 12345; 80053; 81003; 83690; 85025; 96361; 96374; 96375; 99283; J2405; J3490; J7030

== ENCOUNTER 2020-09-11 00:12 | Outpatient (CLI) | payer MEDICAID, SELFPAY ==
[2020-09-11 00:05] VITALS: BMI 41.5
[2020-09-11 00:27] VITALS: BP 127/63; PULSE 84; RESP 17; TEMP 36.2; O2SAT 99
--- NOTE | 2020-09-11 01:07 | PC.NURSE ---
Patient escorted to ED via wheelchair accompanied by SO.
== END 2020-09-11 00:27 | disposition home or self-care (01) ==
LOC: OPOB 00:12 → OBGYN 00:12
PROVIDERS: Visit Provider Obstetrics & Gynecology
DX: O26.899 Other specified pregnancy related conditions, unspecified trimester (principal); Z3A.00 Weeks of gestation of pregnancy not specified; R10.9 Unspecified abdominal pain
CPT/HCPCS: 99211

== ENCOUNTER 2020-09-11 00:29 | Emergency (ER) | payer MEDICAID, SELFPAY ==
[2020-09-11] VITALS (9 sets, daily range): BP systolic 96–120; BP diastolic 55–74; PULSE 63–94; RESP 16–24; TEMP 36.9; O2SAT 98–100; BMI 41.5
--- NOTE | 2020-09-11 00:46 | W.ED.ABDPA2 ---
HPI - Abdominal Pain General: Chief Complaint: Abdominal Pain Stated Complaint: N/V Time Seen by Provider: 09/11/20 00:32 Source: patient Mode of arrival: ambulatory Limitations: no limitations History of Present Illness: HPI narrative: 20-year-old female who is currently 23 weeks . She states she has had vomiting throughout this and has been seen here twice for hyperemesis gravidarum. She states that she is ran out of her medicines and started having abdominal pain and vomiting tonight. She states she has had multiple episodes of vomiting. Patient states her pain is diffuse in nature and rates it a 5 out of 10. She was seen at OB and cleared before being sent to the ER. She denies any vaginal bleeding or discharge. She denies any fevers. Associated Symptoms: Reports nausea and vomiting; Denies chills, dysuria and fever(s) Related Data: Date of Last Menstrual Period: 03/24/20 Review of Systems Const: Denies: fever(s), chills, body aches or change in appetite Eyes: Denies: blurry vision or eye discomfort ENMT: Denies: throat pain or dental pain Card: Denies: chest pain Resp: Denies: dyspnea GI: Reports: abdominal pain, nausea and vomiting : Denies: dysuria Musc: Denies: neck pain or back pain Skin/Breast: Denies: rash Neuro: Denies: headache(s) Psych: Denies: depression Ian/Lymph: Denies: easy bruising All/Imm: Denies: urticaria PFSH ED PFSH: Medical History No pertinent past medical history Surgical History No pertinent past surgical history Family History Denies family history of CAD (coronary artery disease) Family history of premature coronary artery disease Social History Smoking and tobacco status: never smoked Alcohol intake: never Household members: family Female Reproductive History: Date of last menstrual period: 03/24/20 Physical Exam Const: COMMON NORMALS: no acute distress and patient oriented x3 GENERAL APPEARANCE: ill appearing HENMT: COMMON NORMALS: normocephalic and atraumatic HEAD & SCALP: normocephalic and atraumatic Eye: COMMON NORMALS: Equal, round and reactive pupils present and EOMs intact bilaterally PUPIL: Yes Equal, round and reactive pupils present Neck/C-Spine: COMMON NORMALS: full ROM and supple Chest: COMMONS NORMALS: normal inspection of the chest and normal palpation of entire chest wall Resp: COMMON NORMALS: normal respiratory effort, No retractions, No use of accessory muscles and clear to auscultation bilaterally AUSCULTATION: clear to auscultation bilaterally Cardio: COMMON NORMALS: regular rate, regular rhythm and No murmurs present (Cardio) RATE: regular rate RHYTHM: regular rhythm GI: COMMON NORMALS: Normal to inspection, nondistended, normoactive bowel sounds present, Soft to palpation, non-tender and no masses PALPATION: Yes Soft to palpation Extremity: COMMON NORMALS: normal to inspection and full ROM Neuro: COMMON NORMALS: patient oriented x3, moves all extremities and no focal motor deficits Psych: COMMON NORMALS: mental status grossly normal, Normal thought process present and cooperative THOUGHT PROCESS: Normal thought process present Skin: COMMON NORMALS: no rashes or lesions noted and no wounds GENERAL SKIN EXAM: no rashes or lesions noted Course Vital Signs: Vital signs: Vital Signs Temperature 98.4 F 09/11/20 00:33 Pulse Rate 78 09/11/20 03:45 Respiratory Rate 24 H 09/11/20 04:22 Blood Pressure 110/68 09/11/20 03:45 Pulse Oximetry 100 09/11/20 03:45 MDM - Abdominal Pain MDM Narrative: Medical decision making narrative: Patient presents here with abdominal pain along with vomiting. Patient likely has hyperemesis gravidarum. I believe her white count is due to her dehydration and stress of vomiting. Her abdominal exam is much improved here after Reglan. Patient's ultrasound showed gallstones with no signs of acute cholecystitis. She has no lower abdominal pain with no signs of appendicitis. She tolerated p.o. fluids here. She continues to have nausea. I did offer her admission and recommended her to be admitted for her hyperemesis gravidarum. She states she feels better and does not want to stay in the hospital would like to go home. Will prescribe her Phenergan HI along with pain medicine. We will have her follow-up with Dr. Walsh and Dr. pereira. She is to return if worsening. She understands agrees to plan. Lab Data: Labs: Lab Results 09/11/20 09/11/20 09/11/20 Range/Units 01:00 01:00 02:36 WBC 17.4 H (4.0-10.0) 10^3/ uL RBC 3.75 L (4.1-5.3) 10^6/u L Hgb 10.4 L (11.5-15.3) g/dL Hct 32.6 L (37.0-47.0) % MCV 86.9 (81-99) fL MCH 27.7 L (28.0-34.0) pg MCHC 31.9 (30.0-36.0) g/dL RDW 15.0 (12.1-15.1) % Plt Count 287 (130-400) 10^3/c mm MPV 11.1 H (7.4-10.4) fL Neut % (Auto) 93.5 % Lymph % (Auto) 4.7 % [place] % (Auto) 1.1 % Eos % (Auto) 0.1 % Baso % (Auto) 0.1 % Neut # (Auto) 16.25 H (1.8-7.7) 10^3/u L Lymph # (Auto) 0.8 (0.8-4.8) 10^3/u L [place] # (Auto) 0.2 (0.2-0.9) 10^3/u L Eos # (Auto) 0.0 (0.0-0.8) 10^3/u L Baso # (Auto) 0.0 (0.0-0.1) 10^3/u L Nucleated RBC % (a uto) 0 % Nucleated RBCs # 0.0 /100WBC Sodium 135 L (136-145) mmol/L Potassium 3.6 (3.5-5.1) mmol/L Chloride 103 (98-107) mmol/L Carbon Dioxide 18 L (22-29) mmol/L Anion Gap 17.6 (5-19) BUN 8 (6-20) mg/dL Creatinine 0.5 (0.5-0.9) mg/dL GFR Calculation 155.7 H (90-130) mL/min Glucose 128 H (65-115) mg/dL Calculated Osmolal ity 280 L (285-295) mOsm/k g Calcium 9.1 (8.5-10.5) mg/dL Total Bilirubin 0.2 (0.15-1.2) mg/dL AST 12 (0-32) U/L ALT 10 (0-33) U/L Alkaline Phosphata se 79 (35-105) IU/L Total Protein 7.0 (6.6-8.7) g/dL Albumin 3.7 (3.5-5.2) g/dL Globulin 3.3 (1.3-4.6) g/dL Lipase 26 (13-60) U/L Urine Color Yellow (Yellow) Urine Appearance Turbid (CLEAR) Urine pH 5.0 (5-7) Ur Specific Gravit y 1.025 (1.005-1.030) Urine Protein Trace (Negative) Urine Glucose (UA) Norm (Normal) Urine Ketones 2+ H (Negative) Urine Blood Neg (Negative) Urine Nitrate Negative (Negative) Urine Bilirubin Neg (Negative) Urine Urobilinogen Norm (Negative) mg/dL Ur Leukocyte Winnie ase Negative (Negative) Urine RBC None (0-2) /hpf Urine WBC None (0-5) /hpf Ur Squamous Epith Cells 5-10 H (0-5) /hpf Amorphous Sediment Amorphous urates /hpf Urine Bacteria 1+ H (NONE) /hpf Imaging Data ^: US: Attestation: I personally reviewed and interpreted this imaging study as follows: My impression: gallstones with no signs of cholecystitis Discharge Plan Discharge Patient Disposition: Home Clinical Impression: Hyperemesis gravidarum, Gallstones Condition: Stable Prescriptions: [place] 5-325 mg tablet 1 tab PO Q6H PRN (Reason: pain) Qty: 14 RF: 0 Promethegan 25 mg suppository 25 mg HI Q6H PRN (Reason: nausea and vomiting) Qty: 20 RF: 0 Discharge Orders: Discharge ED (Routine); Ordered 09/11/20 Ordered By: Gloria Holden Referrals: Joe Walsh MD [Physician] - 1-3 days Christian Soria MD [Physician] - 1-3 days Discharge Diet: Advance as tolerated Discharge Activity: Resume usual activity Patient Instructions: Biliary Colic (ED), Acute Nausea and Vomiting (ED) Coding Level of Care Code ED Sound Effects Person for Chg Fwd Exam Comprehensive
[2020-09-11 01:02] LABS: Basophils % 0.1 %; Eosinophils % 0.1 %; Hematocrit 32.6 % (37.0-47.0); Hemoglobin 10.4 g/dL (11.5-15.3); Lymphocytes # 0.8 10^3/uL (0.8-4.8); Lymphocytes % 4.7 %; Mean Corpuscular HGB Conc 31.9 g/dL (30.0-36.0); Mean Corpuscular Hemoglobin 27.7 pg (28.0-34.0); Mean Corpuscular Volume 86.9 fL (81-99); Mean Platelet Volume 11.1 fL (7.4-10.4); Monocytes # 0.2 10^3/uL (0.2-0.9); Monocytes % 1.1 %; Neutrophils # 16.25 10^3/uL (1.8-7.7); Neutrophils % 93.5 %; Nucleated Red Blood Cells % 0 %; Platelet Count 287 10^3/cmm (130-400); Red Blood Count 3.75 10^6/uL (4.1-5.3); White Blood Count 17.4 10^3/uL (4.0-10.0)
[2020-09-11] MEDS: diphenhydrAMINE 50 mg/mL SDV 1mL IVP (01:08)
[2020-09-11] MEDS: metoclopramide 5 mg/mL SDV 2 mL 10 MG IVP (01:08)
[2020-09-11] MEDS: sodium chloride 0.9% 1,000 ML 999 ML IV ×2 (01:08→01:38)
--- NOTE | 2020-09-11 01:10 | US_ITS ---
WS: [id number] RIGHT UPPER QUADRANT ULTRASOUND HISTORY: Abdominal pain. COMPARISON: 05/28/2020 Liver: 14.6 cm in length. Normal size liver. No bile duct dilatation or mass. Gallbladder: Small amount of sludge or fine stones within the lumen of the gallbladder. No wall thick ening. CBD: 0.4 cm Pancreas: Normal size and echogenicity. Right kidney: 11.3 cm in length. Normal size kidney with mild dilatation of the renal pelvis. Aorta and IVC: Unremarkable abdominal aorta and IVC. No ascites. US/US gall bladder [id number] IMPRESSION: 1. Very minimal dilatation of the RIGHT renal pelvis. New since the prior stud y of 05/28/2020. 2. Small stones in the gallbladder lumen without acute cholecystitis.
[2020-09-11 01:21] LABS: Alanine Aminotransferase 10 U/L (0-33); Albumin Level 3.7 g/dL (3.5-5.2); Alkaline Phosphatase 79 IU/L (35-105); Anion Gap 17.6 (5-19); Aspartate Amino Transferase 12 U/L (0-32); Blood Urea Nitrogen 8 mg/dL (6-20); Calcium 9.1 mg/dL (8.5-10.5); Carbon Dioxide 18 mmol/L (22-29); Chloride 103 mmol/L (98-107); Globulin 3.3 g/dL (1.3-4.6); Glomerular Filtration Rate 155.7 mL/min (90-130); Glucose 128 mg/dL (65-115); Lipase 26 U/L (13-60); Osmolality Calculated 280 mOsm/kg (285-295); Potassium 3.6 mmol/L (3.5-5.1); Sodium 135 mmol/L (136-145); Total Bilirubin 0.2 mg/dL (0.15-1.2)
[2020-09-11] MEDS: morphine 4 mg/mL SDV 1 mL IVP (01:31)
[2020-09-11] MEDS: ondansetron 2 mg/ML SDV 2 mL 4 MG IVP ×2 (01:31→04:06)
[2020-09-11 03:36] LABS: Specific Gravity, Urine 1.025 (1.005-1.030); Urine Appearance Turbid (CLEAR); Urine Color Yellow (Yellow)
[2020-09-11 03:37] LABS: Add Urine Microscopic? YES; Bacteria Urine 1+ /hpf; Bilirubin Urine Neg (Negative); Blood Urine Neg (Negative); Glucose Urine UA Norm (Normal); Ketones Urine 2+ (Negative); Leukocyte Esterase Urine Negative (Negative); Nitrate Urine Negative (Negative); Protein Urine Trace (Negative); Urobilinogen Urine Norm (Negative)
[2020-09-11 03:38] LABS: Add Urine Culture? No; Amorphous Sediment Urine AMORPHOUS URATES /hpf
[2020-09-11] MEDS: HYDROmorphone 1 mg/mL INJ 1 mL IVP (04:22)
--- NOTE | 2020-09-11 04:27 | PC.NURSE ---
Pt incontinent of urine. Urine cleaned. Pt placed in clean gown.
== END 2020-09-11 05:31 | disposition home or self-care (01) ==
PROVIDERS: Emergency Provider Emergency Medicine
DX: O21.0 Mild hyperemesis gravidarum (principal); O99.612 Diseases of the digestive system complicating pregnancy, second trimester; Z3A.23 23 weeks gestation of pregnancy
CPT/HCPCS: 12345; 76705; 80053; 81001; 83690; 85025; 96361; 96372; 96374; 96375; 96376; 99283; 99284; J1170; J1200; J2270; J2405; J2765; J7030

== ENCOUNTER 2020-09-12 01:41 | Observation (INO) | payer MEDICAID, SELFPAY ==
[2020-09-12] VITALS (12 sets, daily range): BP systolic 107–154; BP diastolic 61–90; PULSE 58–102; RESP 16–24; TEMP 36.5; O2SAT 97–99; BMI 41.5
--- NOTE | 2020-09-12 03:00 | ED_ITS ---
HPI - Nausea/Vomiting/Diarrhea General: Chief complaint: Nausea/Vomiting/Diarrhea Stated complaint: abd pain/23 wks preg/cleared by OB yesterday Time Seen by Provider: 09/12/20 01:43 Source: patient Mode of arrival: ambulatory Limitations: no limitations History of Present Illness: HPI Narrative: 20-year-old female who is currently 23 weeks . Patient was seen here last night for abdominal pain hyperemesis gravidarum. She does have gallstones. Patient states she has been taking her pain meds and nausea medicine prescribed for for home and she is continue to have abdominal pain along with vomiting. States her pain is a 5 out of 10. She denies any worsening improving factors. Denies any vaginal bleeding or OB complaints this time MD elicited complaint: nausea and vomiting Associated nausea: Yes Associated symtoms: Reports nausea; Denies chest pain, dysuria or headache(s) Review of Systems Const: Denies: fever(s), chills, body aches or change in appetite Eyes: Denies: blurry vision or eye discomfort ENMT: Denies: throat pain or dental pain Card: Denies: chest pain Resp: Denies: dyspnea GI: Reports: abdominal pain, nausea and vomiting : Denies: dysuria Musc: Denies: neck pain or back pain Skin/Breast: Denies: rash Neuro: Denies: headache(s) Psych: Denies: depression Ian/Lymph: Denies: easy bruising All/Imm: Denies: urticaria PFSH ED PFSH: Medical History No pertinent past medical history Surgical History No pertinent past surgical history Family History Denies family history of CAD (coronary artery disease) Family history of premature coronary artery disease Social History Smoking and tobacco status: never smoked Alcohol intake: never Household members: family Female Reproductive History: Date of last menstrual period: 03/24/20 Physical Exam Const: COMMON NORMALS: no acute distress, patient oriented x3 and healthy appearing HENMT: COMMON NORMALS: normocephalic and atraumatic HEAD & SCALP: normocephalic and atraumatic Eye: COMMON NORMALS: Equal, round and reactive pupils present and EOMs intact bilaterally PUPIL: Yes Equal, round and reactive pupils present Neck/C-Spine: COMMON NORMALS: full ROM and supple Chest: COMMONS NORMALS: normal inspection of the chest and normal palpation of entire chest wall Resp: COMMON NORMALS: normal respiratory effort, No retractions, No use of accessory muscles and clear to auscultation bilaterally AUSCULTATION: clear to auscultation bilaterally Cardio: COMMON NORMALS: regular rate, regular rhythm and No murmurs present (Cardio) RATE: regular rate RHYTHM: regular rhythm GI: COMMON NORMALS: Normal to inspection, nondistended, normoactive bowel sounds present, Soft to palpation, non-tender and no masses PALPATION: Yes Soft to palpation and Yes Tenderness to palpation present (GI) Details: RUQ Extremity: COMMON NORMALS: normal to inspection and full ROM Neuro: COMMON NORMALS: patient oriented x3, moves all extremities and no focal motor deficits Psych: COMMON NORMALS: mental status grossly normal, Normal thought process present and cooperative THOUGHT PROCESS: Normal thought process present Skin: COMMON NORMALS: no rashes or lesions noted and no wounds GENERAL SKIN EXAM: no rashes or lesions noted Course Vital Signs: Vital signs: Vital Signs Temperature 97.7 F 09/12/20 02:50 Pulse Rate 74 09/12/20 04:00 Respiratory Rate 18 09/12/20 04:00 Blood Pressure 126/70 09/12/20 04:00 Pulse Oximetry 97 09/12/20 04:00 MDM - Nausea/Vomiting/Diarrhea MDM Narrative: Medical decision making narrative: Patient presents with hyperemesis gravidarum along with some abdominal pain likely from her gallstones. She has no signs of cholecystitis and her labs are actually slightly improved from yesterday. She still is having vomiting and pain. I spoke to Dr. Padilla who is on for OB and will admit for observation. Lab Data: Labs: Lab Results 09/12/20 09/12/20 09/12/20 Range/Units 03:25 03:25 04:25 WBC 15.4 H (4.0-10.0) 10^3/ uL RBC 3.71 L (4.1-5.3) 10^6/u L Hgb 10.2 L (11.5-15.3) g/dL Hct 33.0 L (37.0-47.0) % MCV 88.9 (81-99) fL MCH 27.5 L (28.0-34.0) pg MCHC 30.9 (30.0-36.0) g/dL RDW 15.3 H (12.1-15.1) % Plt Count 285 (130-400) 10^3/c mm MPV 11.2 H (7.4-10.4) fL Neut % (Auto) 89.4 % Lymph % (Auto) 7.2 % Cache % (Auto) 2.7 % Eos % (Auto) 0.1 % Baso % (Auto) 0.1 % Neut # (Auto) 13.76 H (1.8-7.7) 10^3/u L Lymph # (Auto) 1.1 (0.8-4.8) 10^3/u L Cache # (Auto) 0.4 (0.2-0.9) 10^3/u L Eos # (Auto) 0.0 (0.0-0.8) 10^3/u L Baso # (Auto) 0.0 (0.0-0.1) 10^3/u L Nucleated RBC % (a uto) 0 % Nucleated RBCs # 0.0 /100WBC Sodium Cancelled 141 Potassium Cancelled 3.7 Chloride Cancelled Carbon Dioxide Cancelled 22 Anion Gap Cancelled 13.7 BUN Cancelled 8 Creatinine Cancelled 0.5 GFR Calculation Cancelled Glucose Cancelled 114 Calculated Osmolal ity Cancelled 291 Calcium Cancelled 8.7 Total Bilirubin Cancelled 0.3 AST Cancelled 13 ALT Cancelled 10 Alkaline Phosphata se Cancelled 75 Total Protein Cancelled 7.0 Albumin Cancelled 3.8 Globulin Cancelled 3.2 Lipase Cancelled 29 Urine Color (Yellow) Urine Appearance (CLEAR) Urine pH (5-7) Ur Specific Gravit y (1.005-1.030) Urine Protein (Negative) Urine Glucose (UA) (Normal) Urine Ketones (Negative) Urine Blood (Negative) Urine Nitrate (Negative) Urine Bilirubin (Negative) Urine Urobilinogen (Negative) mg/dL Ur Leukocyte Winnie ase (Negative) Amorphous Sediment 09/12/20 Range/Units 04:31 WBC (4.0-10.0) 10^3/ uL RBC (4.1-5.3) 10^6/u L Hgb (11.5-15.3) g/dL Hct (37.0-47.0) % MCV (81-99) fL MCH (28.0-34.0) pg MCHC (30.0-36.0) g/dL RDW (12.1-15.1) % Plt Count (130-400) 10^3/c mm MPV (7.4-10.4) fL Neut % (Auto) % Lymph % (Auto) % Cache % (Auto) % Eos % (Auto) % Baso % (Auto) % Neut # (Auto) (1.8-7.7) 10^3/u L Lymph # (Auto) (0.8-4.8) 10^3/u L Cache # (Auto) (0.2-0.9) 10^3/u L Eos # (Auto) (0.0-0.8) 10^3/u L Baso # (Auto) (0.0-0.1) 10^3/u L Nucleated RBC % (a uto) % Nucleated RBCs # /100WBC Sodium Potassium Chloride Carbon Dioxide Anion Gap BUN Creatinine GFR Calculation Glucose Calculated Osmolal ity Calcium Total Bilirubin AST ALT Alkaline Phosphata se Total Protein Albumin Globulin Lipase Urine Color Dark yellow (Yellow) Urine Appearance Cloudy (CLEAR) Urine pH 5 (5-7) Ur Specific Gravit y 1.030 (1.005-1.030) Urine Protein Neg (Negative) Urine Glucose (UA) Norm (Normal) Urine Ketones 3+ H (Negative) Urine Blood 2+ H (Negative) Urine Nitrate Negative (Negative) Urine Bilirubin Neg (Negative) Urine Urobilinogen 1 H (Negative) mg/dL Ur Leukocyte Winnie ase 1+ H (Negative) Amorphous Sediment Not Reportable Discharge Plan Discharge Prescriptions: No Action [place] 5-325 mg tablet 1 tab PO Q6H PRN (Reason: pain) Qty: 14 RF: 0 Promethegan 25 mg suppository 25 mg WI Q6H PRN (Reason: nausea and vomiting) Qty: 20 RF: 0 Coding Level of Care Code ED Entry Level Java Developer for Chg Fwd Exam Comprehensive
[2020-09-12] MEDS: sodium chloride 0.9% 1,000 ML 999 ML IV ×3 (03:05→07:17)
[2020-09-12] MEDS: diphenhydrAMINE 50 mg/mL SDV 1mL 25 MG IVP (03:10)
[2020-09-12] MEDS: HYDROmorphone 1 mg/mL INJ 1 mL IVP ×2 (03:15→07:00)
[2020-09-12] MEDS: promethazine 25 mg/mL SDV 1 mL IM (03:25)
[2020-09-12 03:58] LABS: Basophils % 0.1 %; Eosinophils % 0.1 %; Hemoglobin 10.2 g/dL (11.5-15.3); Lymphocytes # 1.1 10^3/uL (0.8-4.8); Lymphocytes % 7.2 %; Mean Corpuscular HGB Conc 30.9 g/dL (30.0-36.0); Mean Corpuscular Hemoglobin 27.5 pg (28.0-34.0); Mean Corpuscular Volume 88.9 fL (81-99); Mean Platelet Volume 11.2 fL (7.4-10.4); Monocytes # 0.4 10^3/uL (0.2-0.9); Monocytes % 2.7 %; Neutrophils # 13.76 10^3/uL (1.8-7.7); Neutrophils % 89.4 %; Nucleated Red Blood Cells % 0 %; Platelet Count 285 10^3/cmm (130-400); Red Blood Count 3.71 10^6/uL (4.1-5.3); Red Cell Distribution Width 15.3 % (12.1-15.1); White Blood Count 15.4 10^3/uL (4.0-10.0)
[2020-09-12 04:47] LABS: Add Urine Microscopic? YES; Bilirubin Urine Neg (Negative); Blood Urine 2+ (Negative); Glucose Urine UA Norm (Normal); Ketones Urine 3+ (Negative); Leukocyte Esterase Urine 1+ (Negative); Nitrate Urine Negative (Negative); Protein Urine Neg (Negative); Urine Appearance Cloudy (CLEAR); Urine Color Dark Yellow (Yellow); Urobilinogen Urine 1 mg/dL (Negative); pH Urine 5 (5-7)
[2020-09-12 05:22] LABS: Alanine Aminotransferase 10 U/L (0-33); Albumin Level 3.8 g/dL (3.5-5.2); Alkaline Phosphatase 75 IU/L (35-105); Anion Gap 13.7 (5-19); Aspartate Amino Transferase 13 U/L (0-32); Blood Urea Nitrogen 8 mg/dL (6-20); Calcium 8.7 mg/dL (8.5-10.5); Carbon Dioxide 22 mmol/L (22-29); Chloride 109 mmol/L (98-107); Globulin 3.2 g/dL (1.3-4.6); Glomerular Filtration Rate 155.7 mL/min (90-130); Glucose 114 mg/dL (65-115); Lipase 29 U/L (13-60); Osmolality Calculated 291 mOsm/kg (285-295); Potassium 3.7 mmol/L (3.5-5.1); Sodium 141 mmol/L (136-145); Total Bilirubin 0.3 mg/dL (0.15-1.2)
[2020-09-12 06:18] LABS: Add Urine Culture? No; Bacteria Urine 3+ /hpf; RBC Urine 0-4 /hpf (0-2); Squamous Epithelial Cell Urine 15-25 /hpf (0-5); WBC Urine 0-4 /hpf (0-5)
[2020-09-12] MEDS: metoclopramide 5 mg/mL SDV 2 mL 10 MG IVP (07:01)
[2020-09-12] MEDS: D5-NS 0.45% + KCL 20 mEq 20 MEQ/1,000 ML BAG 500 MEQ IV ×2 (08:33→11:12)
--- NOTE | 2020-09-12 08:42 | PM.OBGYHP ---
Providers/Chief Complaint Admitting Physician: Melecio Padilla MD Primary CROTCH PIECE BASTER: Dr. Moore in [place], [place] Chief Complaint: abd pain/23 wks preg/cleared by OB yesterday HPI CROT[employer] PIECE BASTER History of Present Illness Lakia Weinstein is a 20 year old female 1, para 0 with a reported EDC of 01/02/2021 based on 8-week ultrasound. This places her at 24-0/7 weeks gestation today. She presented [facility] ER due to abdominal pain and nausea and vomiting. Patient reports she has had problems with nausea and vomiting and upper abdominal pain the entire . She states she was told that it was initially hyperemesis and had been treated with medications for it. She does not remember what it was she was being treated with. She stated that her nausea vomiting and pain went away approximately 2 months ago. However, as of yesterday morning, it came back while having an OB ultrasound performed in [facility]. She stated that it got bad enough that she started vomiting in the middle of the ultrasound and it had to be stopped. She reports the pain has worsened since yesterday morning. he is reporting it a 10 out of 10 in intensity. She denied any radiation of the pain. She denied any triggers for the pain. She states nothing helps with it other than taking pain medication. She was seen here yesterday afternoon and admission was recommended at the time. She refused admission and went home. She returned at approximately 3 AM to the ER and was reevaluated. Patient agreed to observation and further evaluation in the hospital. Patient reports care has been provided by Dr. Moore in [place]. She stated she did not go back to [facility] due to not liking the care she was getting. Present Details : 1 Para: 0 Review of Systems Const: Denies: fever(s) or chills ENMT: Denies: throat pain or nasal congestion Card: Denies: chest pain or palpitations Resp: Denies: dyspnea, productive cough, non-productive cough or wheezing GI: Reports: abdominal pain, nausea and vomiting; Denies: diarrhea, constipation or hematochezia : Reports: other (Denies leaking of fluid or contractions. Reports movement.); Denies: dysuria, genital pruritis, vaginal bleeding, vaginal discharge or pelvic pain Neuro: Denies: headache(s) or dizziness Medications/Allergies Home Medications Medication Instructions Recorded Confirmed Last Taken Type hydrocodone-acetaminophen [[place]] 1 tab PO Q6H PRN #14 tab 09/11/20 Unknown Rx promethazine [Promethegan] 25 mg SD Q6H PRN #20 ea 09/11/20 Unknown Rx Allergies Allergy/AdvReac Type Severity Reaction Status Date / Time No Known Allergies Allergy Verified 09/12/20 02:57 PFSH CROTCH PIECE BASTER PFSH: Medical History No pertinent past medical history Surgical History No pertinent past surgical history Family History (Updated 09/12/20 @ 09:25 by Melecio Padilla MD) Denies family history of Diabetes CAD (coronary artery disease) Family history of premature coronary artery disease Lung disease Cancer Hypertension Stroke Social History (Updated 09/12/20 @ 09:26 by Melecio Padilla MD) Smoking and tobacco status: current every day smoker cigarettes [ Other cigarette details: Reports occasional tobacco use, but not during ] Alcohol intake: never Substance/Drug Use: never Household members: family History History History 1 Term 0 Miscarriages/Ectopic 0 0 Living Children 0 Care FELIPE Calculator Estimated Delivery Date Method Current WG Current Estimate 01/02/21 Ultrasound #1 24w 0d Vitals/I&O/Wt Last Vital Signs Temp 97.7 F 09/12/20 02:50 Pulse 102 H 09/12/20 06:23 Resp 16 09/12/20 07:00 BP 154/90 09/12/20 06:23 Pulse Ox 97 09/12/20 06:23 09/11/20 09/12/20 09/12/20 22:59 06:59 14:59 Intake Total 1999 1000 / 1000 Balance 1999 1000 / 1000 Weight last 48 hrs Weight 250 lb Physical Exam Narrative: EXAM NARRATIVE: Patient was sleeping soundly on arrival to the room. Was somewhat difficult to wake up. Once awake, was reporting severe upper abdominal pain and was rocking in bed. Const: COMMON NORMALS: no acute distress, alert and well nourished GENERAL APPEARANCE: well developed NUTRITIONAL APPEARANCE: obese ORIENTATION/CONSCIOUSNESS: Yes oriented to person, Yes oriented to place and Yes oriented to time Neck/C-Spine: COMMON NORMALS: Thyroid normal GENERAL: Yes trachea midline THYROID: Thyroid normal Resp: COMMON NORMALS: normal respiratory effort and clear to auscultation bilaterally AUSCULTATION: clear to auscultation bilaterally Cardio: COMMON NORMALS: regular rate, regular rhythm, No gallops present (Cardio), No murmurs present (Cardio) and No rub (Cardio) RATE: regular rate RHYTHM: regular rhythm GI: COMMON NORMALS: Soft to palpation, No hepatosplenomegaly present and no masses (Except for nontender gravid uterus) INSPECTION: Yes central obesity AUSCULTATION: Yes normoactive bowel sounds PALPATION: Yes Soft to palpation, Yes Tenderness to palpation present (GI) Details: RUQ (Moderate degree), No Guarding due to palpation present (GI), No Rigid due to palpation, Yes No hepatosplenomegaly present and No Hernia present : EXTERNAL FEMALE EXAM: No Hernia present Back/Pelvis: COMMON NORMALS: no CVA tenderness (Bilaterally) Extremity: COMMON NORMALS: no clubbing, cyanosis or edema and no calf tenderness Neuro: SENSORIUM/ORIENTATION: Yes alert, Yes oriented to person, Yes oriented to place and Yes oriented to time Psych: COMMON NORMALS: normal affect MOOD & AFFECT: Yes euthymic mood Skin: COMMON NORMALS: no rashes or lesions noted GENERAL SKIN EXAM: no rashes or lesions noted Data : 09/12/20 03:25 09/12/20 04:25 Other Labs: 09/12/2020 at 04:25 Calcium 8.7, total bili 0.3, AST 13, ALT 10, alk phos 75, total protein 7.0, albumin 3.8, lipase 29 Urinalysis: Specific gravity 1.030, protein negative, glucose negative, ketones 3+, blood 2+, nitrate negative, leukocyte esterase 1+, RBC 0-4, WBC 0-4, squamous cells 15-25, bacteria 3+ US: Radiologist's impression: Small stones in the gallbladder without signs of acute cholecystitis. Minimal dilation of the right renal pelvis. Attestation for Other Data: I personally reviewed and interpreted the following: Other data: monitoring: Baseline heart rate 155-160. No accelerations. No decelerations noted. Gestational age appropriate tracing. No contractions noted. A&P Assessment and plan (1) Right upper quadrant abdominal pain during in second trimester: Patient reporting right upper quadrant abdominal pain that has been present most of the . Review of records from [facility], patient was evaluated and May 2020 at 8 weeks in the with similar complaints. She is reporting being given medications with ER visits, but no medications by her primary provider for OB, Dr. Moore in [place]. She reported that the pain had gone away for approximately 2 months before returning yesterday. Her evaluation so far shows presence of small gallstones. However, it is uncertain if this is truly the cause for her pain. She does not appear to be having any type of obstetrical cause for the pain as she has no uterine tenderness noted. Because of the gallstones and the pain, general surgery, Dr. Walsh, has been consulted. We will continue to cover with pain medication for the time being. I am requesting records from Dr. Moore. Status: Acute (2) Nausea/vomiting in : Patient initially had nausea and vomiting at the beginning of and had been diagnosed with hyperemesis. According to her, the nausea vomiting had gone away for about 2 months before returning yesterday with the onset of her pain. This may or may not be related to the gallstones. At this point she was dehydrated when she came into the ER. She is getting IV fluid hydration and has been started on scheduled IV Reglan with IV Zofran as needed. Status: Acute (3) Gallstones: Patient had been evaluated in 05/2020 because of prior episodes of right upper quadrant pain with an ultrasound that did not show gallstones. However, gallbladder ultrasound on 09/11/[address] Walsh, general surgery, has been consulted regarding this. Status: Acute Attestations Medical Necessity Statement*: Patient with right upper quadrant pain with nausea and vomiting in . She is being evaluated by general surgery. Coding Level of Care Code Acute Brazing Furnace Feeder for [facility] Fwd Exam Comprehensive Diagnoses Right upper quadrant abdominal pain during in second trimester O26.892; R10.11 Nausea/vomiting in O21.9 Gallstones K80.20
[2020-09-12] MEDS: famotidine 20 mg/2 mL INJ IVP (09:51)
[2020-09-12] MEDS: morphine 4 mg/mL SDV 1 mL IVP (09:54)
--- NOTE | 2020-09-12 11:55 | PC.NURSE ---
pt sitting up in bed moving around bed, moaning, stating I'm in pain. This nurse asked pt what nurse could do for pt. Pt stated I'm unsure.
--- NOTE | 2020-09-12 12:00 | PC.NURSE ---
this nurse entered room to find pt laying prone, this nurse educated the reasons why laying prone is not recommended during .
--- NOTE | 2020-09-12 12:03 | PC.NURSE ---
Addendum entered by Eileen Pedroza RN 09/12/20 12:14: This occurred at 1046 Original Note: in room at this time educating pt of options for pt care. pt sitting up in bed moaning and moving around. asked if pt was in pain, pt replied that she was not in pain and is just cold.
--- NOTE | 2020-09-12 12:38 | PC.NURSE ---
this nurse entered pt room and found pt on the floor, rolling around connected to the IV pole with fluids running. This nurse asked pt if she was ok and how pt got there. pt reported she wanted to get on the floor to feel better. pt reported pain in upper stomach. this nurse asked pt to either sit on the bed if she could. pt then had this nurse remove IV from forearm while still on the floor. this nurse asked if pt wanted to get back into bed pt declined.
--- NOTE | 2020-09-12 12:52 | P.CONIM_ITS ---
Providers/Reason For Consult Consulting Physican/Specialty*: Melecio Padilla MD Reason for Consult*: Right upper quadrant epigastric pain Attending Physician: Melecio Padilla MD History of Present Illness History of Present Illness Lakia Weinstein is a 20 year old female who is 24 weeks who presents to the ER this morning with 36-hour history of severe abdominal pain associated nausea and vomiting. Patient states that she had breakfast burrito 2 days ago for breakfast and since then she has not eaten much. She denies any fevers or chills. She was admitted to the hospital and May 2020 for similar complaints. Ultrasound back then was normal. She has her OB care at [facility] and lives in [place]. She is currently not working. Patient was started on some PPI by her PCP but she stopped taking it after she ran out of medications. At present she denies any significant nausea or vomiting though she still has some abdominal pain. The pain does not radiate. No relieving factors. Review of Systems General: Reports: 10 or more systems reviewed and unremarkable except in HPI and below Meds/Allergies Home Medications and Allergies Home Medications Medication Instructions Recorded Confirmed Last Taken Type hydrocodone-acetaminophen [[place]] 1 tab PO Q6H PRN #14 tab 09/11/20 Unknown Rx promethazine [Promethegan] 25 mg VT Q6H PRN #20 ea 09/11/20 Unknown Rx Allergies Allergy/AdvReac Type Severity Reaction Status Date / Time No Known Allergies Allergy Verified 09/12/20 02:57 Current Medications Current Medications Generic Name Dose Route Start Last Admin Trade Name Freq PRN Reason Stop Dose Admin Famotidine 20 mg 09/12/20 09:45 09/12/20 09:51 Famotidine 20 Mg/2 Ml Inj IVP 20 mg Q12H RAJIV Administration Sodium Chloride 1,000 mls @ 999 mls/hr 09/12/20 06:30 09/12/20 08:33 Sodium Chloride 0.9% IV Infused .Q1H1M RAJIV Infusion Morphine Sulfate 2 - 4 mg 09/12/20 09:31 09/12/20 09:54 Morphine 4 Mg/Ml Sdv 1 Ml IVP 2 mg Q30M PRN Administration MODERATE TO SEVERE PAIN PFSH Acute PFSH: Medical History No pertinent past medical history Surgical History No pertinent past surgical history Family History Denies family history of Diabetes CAD (coronary artery disease) Family history of premature coronary artery disease Lung disease Cancer Hypertension Stroke Social History Smoking and tobacco status: current every day smoker cigarettes [ Other cigarette details: Reports occasional tobacco use, but not during ] Alcohol intake: never Substance/Drug Use: never Household members: family Female Reproductive History: : 1 Vitals/I&O/Wt Last Vital Signs Temp 97.7 F 09/12/20 02:50 Pulse 87 09/12/20 11:17 Resp 18 09/12/20 09:54 BP 107/62 09/12/20 11:17 Pulse Ox 97 09/12/20 06:23 09/11/20 09/12/20 09/12/20 22:59 06:59 14:59 Intake Total 1999 Balance 1999 Weight last 48 hrs Weight 249 lb 15.997 oz Weight 250 lb Physical Exam Narrative: EXAM NARRATIVE: HEENT: Normocephalic Eye: Sclera /conjunctiva normal Abdomen: Soft to palpation, tender epigastric and right upper quadrant region, no guarding or rigidity, uterus palpable just above the umbilicus Neurological: Oriented to place person and time Skin: Intact, no lesions appreciated on gross exam A&P Assessment and plan (1) Gallstones: 20-year-old female who is 24 weeks with right upper quadrant pain, epigastric pain with nausea and vomiting. An ultrasound in May 2020 did not show any gallstones but ultrasound performed today shows small gallstones without any evidence of acute cholecystitis. Her LFTs and lipase were normal. Patient was also diagnosed with gastritis and started on PPI therapy which she has stopped taking. I explained to the patient that the abdominal pain could be from gastritis/peptic ulcer disease, cholelithiasis or hyperemesis gravidarum. Discussed treatment options, risks, benefits of surgery and patient had decided that she wants to hold off on surgery at this point. She can therefore be d ischarged home on a liquid diet and PPI therapy as per Dr. Padilla. Follow-up with her primary OB Status: Acute Coding Level of Care Code Acute Garment Sewer Hand for Chg Fwd Diagnoses Gallstones K80.20
[2020-09-12] MEDS: promethazine 25 mg Tablet PO (13:26)
--- NOTE | 2020-09-12 16:44 | PC.RESP ---
Smoking Cessation information sent to patient.
== END 2020-09-12 13:35 | disposition home or self-care (01) ==
LOC: ER 02:48 → OBGYN 05:51
PROVIDERS: Admitting Provider Obstetrics & Gynecology; Emergency Provider Emergency Medicine; Visit Provider Obstetrics & Gynecology
DX: O26.892 Other specified pregnancy related conditions, second trimester (principal); R10.11 Right upper quadrant pain; O21.9 Vomiting of pregnancy, unspecified; K80.20 Calculus of gallbladder without cholecystitis without obstruction; Z3A.24 24 weeks gestation of pregnancy; O99.332 Smoking (tobacco) complicating pregnancy, second trimester
CPT/HCPCS: 12345; 80053; 81001; 83690; 85025; 96361; 96365; 96366; 96375; 99282; 99285; G0378; J1170; J1200; J2270; J2550; J2765; J3490; J7030; Q0169

== ENCOUNTER 2020-09-14 17:11 | Inpatient (IN) | payer MEDICAID, SELFPAY ==
[2020-09-14] VITALS (10 sets, daily range): BP systolic 110–146; BP diastolic 67–90; PULSE 65–94; RESP 16–24; TEMP 36.7–36.9; O2SAT 95–100; BMI 39.9
--- NOTE | 2020-09-14 17:39 | USR_ITS ---
PROCEDURE INFORMATION: Exam: US Abdomen, Limited; Right Upper Quadrant Exam date and time: 09/14/2020 6:55 PM Age: 20 years old Clinical indication: Abdominal pain; Acute; ; Additional info: Ruq pain worsening TECHNIQUE: Imaging protocol: US abdomen. Real time ultrasound with image documentation. Limited exam focused on the right upper quadrant. COMPARISON: US gall bladder [id number] 09/11/2020 2:04 AM FINDINGS: Real-time sonography of the right upper quadrant was performed. The pancreas is unremarkable. There is fatty infiltration of the liver. There is no liver mass. There is no intrahepatic biliary dilatation. There is hepatopedal flow within the portal vein. The hepatic veins are patent. The common bile duct measured 5 mm. Sludge is seen within the gallbladder. There also some stones. The gallbladder wall is not thickened. There is no pericholecystic fluid. The patient was tender over the gallbladder. The right kidney is normal in size. There is mild hydronephrosis of the right kidney. No free fluid is identified. US/US gall bladder [id number] IMPRESSION: 1. Sludge and stones within the gallbladder. The patient is tender over the gallbladder. 2. Mild hydronephrosis of the right kidney likely due to uterus.
[2020-09-14] MEDS: ondansetron 2 mg/ML SDV 2 mL 4 MG IVP (17:59)
[2020-09-14] MEDS: sodium chloride 0.9% 1,000 ML 999 ML IV (17:59)
[2020-09-14] MEDS: morphine 4 mg/mL SDV 1 mL IVP ×3 (17:59→23:54)
--- NOTE | 2020-09-14 18:03 | ED_ITS ---
HPI - Abdominal Pain General: Chief Complaint: Abdominal Pain Stated Complaint: Gallstones Time Seen by Provider: 09/14/20 17:32 Source: patient, RN notes reviewed and other (hospital notes) Mode of arrival: ambulatory Limitations: no limitations History of Present Illness: HPI narrative: The patient is a 20-year-old female patient who is about 24 weeks and who presented to the hospital and was discharged 3 days ago for abdominal pain that was diagnosed as gallstones. An ultrasound done revealed gallstones but no evidence of cholecystitis. The surgeon was consulted and he offered surgery versus watchful waiting, the patient opted to be discharged home. Pain has been gradually getting worse and she has been unable to eat or drink anything as she vomits when she does. MD elicited complaint: abdominal pain Pertinent past history: gastritis Onset (ago): day(s) (4) Pain Consistency: constant Location: Epigastric and RUQ Severity: severe Quality: stabbing Radiation: none Migration to: no migration Exacerbating factors: eating Relieving factors: nothing Associated Symptoms: Reports nausea and vomiting; Denies anorexia, belching, bloating, change in bowel habits, change in stool character, chills, coffee ground emesis, constipation, GI cramping, diarrhea, dyspepsia, dysuria, excessive flatus, fever(s), heartburn, hematochezia, hematuria, hematemesis, fecal incontinence, loose stools, melena, poor appetite and syncope Related Data: Date of Last Menstrual Period: 03/25/20 Review of Systems General: Reports: 10 or more systems reviewed and unremarkable except in HPI and below Const: Denies: fever(s) or chills Eyes: Denies: change in vision or blurry vision ENMT: Denies: throat pain, enlarged tonsils, odynophagia, hoarseness, mouth pain or swelling of lips/tongue Card: Denies: syncope Resp: Denies: dyspnea, productive cough or non-productive cough GI: Reports: nausea and vomiting; Denies: hematemesis, coffee ground emesis, heartburn, diarrhea, constipation, bloating, GI cramping, belching, excessive flatus, fecal incontinence, change in bowel habits, change in stool character, hematochezia or melena : Denies: dysuria or hematuria Musc: Denies: neck pain, back pain or extremity swelling Skin/Breast: Denies: rash, pruritus or erythema Neuro: Denies: headache(s), numbness in extremities or weakness in extremities Endo: Denies: polyuria, polydipsia or tired all the time PFSH ED PFSH: Medical History (Reviewed 09/14/20 @ 21:42 by Crys Del Toro MD, [facility] [place] No pertinent past medical history Surgical History (Reviewed 09/14/20 @ 21:42 by Crys Del Toro MD, [facility] [place] No pertinent past surgical history Family History Denies family history of Diabetes CAD (coronary artery disease) Family history of premature coronary artery disease Lung disease Cancer Hypertension Stroke Social History (Reviewed 09/14/20 @ 21:42 by Crys Del Toro MD, [facility] [place] Smoking and tobacco status: current every day smoker cigarettes [ Other cigarette details: Reports occasional tobacco use, but not during ] Alcohol intake: never Household members: family Female Reproductive History: Date of last menstrual period: 03/25/20 Physical Exam Const: COMMON NORMALS: average body habitus, patient oriented x3, no limitations, healthy appearing, alert and well nourished GENERAL APPEARANCE: in distress (painful) HENMT: COMMON NORMALS: normocephalic, atraumatic and moist oral mucous membranes HEAD & SCALP: normocephalic and atraumatic Neck/C-Spine: COMMON NORMALS: no meningeal signs and no JVD Resp: COMMON NORMALS: normal respiratory effort, No retractions, No use of accessory muscles, clear to auscultation bilaterally and percussion normal AUSCULTATION: clear to auscultation bilaterally PERCUSSION: percussion normal Cardio: COMMON NORMALS: no JVD, regular rate, regular rhythm, S1 normal heart sound present, S2 normal heart sound present, No gallops present (Cardio), No clicks present (Cardio), No murmurs present (Cardio), No rub (Cardio) and Peripheral pulses 2+ throughout RATE: regular rate RHYTHM: regular rhythm HEART SOUNDS: S1 normal heart sound present and S2 normal heart sound present PERIPHERAL PULSES: Peripheral pulses 2+ throughout GI: COMMON NORMALS: Normal to inspection, nondistended, normoactive bowel sounds present, Soft to palpation, No hepatosplenomegaly present, no masses and no bruits PALPATION: Yes Soft to palpation, Yes Tenderness to palpation present (GI) (positive thacker's sign) Details: RUQ, Yes Guarding due to palpation present (GI), No Rigid due to palpation and Yes No hepatosplenomegaly present Extremity: COMMON NORMALS: normal to inspection, full ROM, capillary refill normal, no calf tenderness and no pedal edema Neuro: COMMON NORMALS: patient oriented x3 SENSORIUM/ORIENTATION: Yes alert MENINGEAL SIGNS: Yes no meningeal signs Skin: COMMON NORMALS: no rashes or lesions noted, no wounds, turgor normal, no jaundice, no petechiae and no mottling GENERAL SKIN EXAM: no rashes or lesions noted and turgor normal Course Reevaluation(s): Reevaluation #1: Discussed her lab and imaging findings with her. Explained that she now has sludge in addition to the gall stones/ No cholecystitis. She says that she would like to have the cholecystectomy as advised by the surgeon. Will discuss with the surgeon and inform her. Time: 19:15 Consultations: Consultation #1: Discussed the patient with Dr. Walsh, surgeon and he kindly accepted the patient to his service. Consult OB Time: 19:30 Consultation #2: Discussed the patient with him and he will consult on the patient. Time: 19:37 Vital Signs: Vital signs: Vital Signs Temperature 98.1 F 09/14/20 17:28 Pulse Rate 76 09/14/20 21:12 Respiratory Rate 24 H 09/14/20 20:25 Blood Pressure 146/87 09/14/20 21:12 Pulse Oximetry 97 09/14/20 21:12 MDM - Abdominal Pain MDM Narrative: Medical decision making narrative: This 20 year old female patient who is 24 weeks and has biliary colic, she has been evaluated by the surgeon in the past and has been advised to have the GB taken out if she is still in significant pain. Liver enzymes mildly elevated and 4 days ago they were normal. She has no signs of cholecystitis and so is not placed on antibiotics. She however is hypokalemic, likely from persistent vomiting. She is admitted to the surgery service for cholecystectomy. Medical Records: Attestation: I reviewed the patient's medical records. Lab Data: Attestation: I reviewed the patient's lab results. Labs: Lab Results 09/14/20 09/14/20 09/14/20 Range/Units 18:00 18:00 18:00 WBC 13.6 H (4.0-10.0) 10^3/ uL RBC 3.91 L (4.1-5.3) 10^6/u L Hgb 10.8 L (11.5-15.3) g/dL Hct 34.1 L (37.0-47.0) % MCV 87.2 (81-99) fL MCH 27.6 L (28.0-34.0) pg MCHC 31.7 (30.0-36.0) g/dL RDW 15.3 H (12.1-15.1) % Plt Count 283 (130-400) 10^3/c mm MPV 10.4 (7.4-10.4) fL Neut % (Auto) 82.3 % Lymph % (Auto) 11.6 % [place] % (Auto) 5.4 % Eos % (Auto) 0.1 % Baso % (Auto) 0.1 % Neut # (Auto) 11.21 H (1.8-7.7) 10^3/u L Lymph # (Auto) 1.6 (0.8-4.8) 10^3/u L [place] # (Auto) 0.7 (0.2-0.9) 10^3/u L Eos # (Auto) 0.0 (0.0-0.8) 10^3/u L Baso # (Auto) 0.0 (0.0-0.1) 10^3/u L Nucleated RBC % (a uto) 0 % Nucleated RBCs # 0.0 /100WBC Sodium 136 (136-145) mmol/L Potassium 2.7 L* (3.5-5.1) mmol/L Chloride 102 (98-107) mmol/L Carbon Dioxide 19 L (22-29) mmol/L Anion Gap 17.7 (5-19) BUN 8 (6-20) mg/dL Creatinine 0.4 L (0.5-0.9) mg/dL GFR Calculation 201.5 H (90-130) mL/min Glucose 79 (65-115) mg/dL Calculated Osmolal ity 279 L (285-295) mOsm/k g Lactate 0.9 (0.5-2.2) mmol/L Calcium 8.9 (8.5-10.5) mg/dL Total Bilirubin 0.5 (0.15-1.2) mg/dL AST 48 H (0-32) U/L ALT 61 H (0-33) U/L Alkaline Phosphata se 80 (35-105) IU/L C-Reactive Protein 7.9 H (0.0-4.9) mg/L Total Protein 7.0 (6.6-8.7) g/dL Albumin 3.7 (3.5-5.2) g/dL Globulin 3.3 (1.3-4.6) g/dL Lipase 26 (13-60) U/L Urine Color (Yellow) Urine Appearance (CLEAR) Urine pH (5-7) Ur Specific Gravit y (1.005-1.030) Urine Protein (Negative) Urine Glucose (UA) (Normal) Urine Ketones (Negative) Urine Blood (Negative) Urine Nitrate (Negative) Urine Bilirubin (Negative) Urine Urobilinogen (Negative) mg/dL Ur Leukocyte [place] (Negative) Urine RBC (0-2) /hpf Urine WBC (0-5) /hpf Ur Squamous Epith Cells (0-5) /hpf Amorphous Sediment Urine Bacteria (NONE) /hpf Urine Mucus /hpf 09/14/20 Range/Units 18:00 WBC (4.0-10.0) 10^3/ uL RBC (4.1-5.3) 10^6/u L Hgb (11.5-15.3) g/dL Hct (37.0-47.0) % MCV (81-99) fL MCH (28.0-34.0) pg MCHC (30.0-36.0) g/dL RDW (12.1-15.1) % Plt Count (130-400) 10^3/c mm MPV (7.4-10.4) fL Neut % (Auto) % Lymph % (Auto) % [place] % (Auto) % Eos % (Auto) % Baso % (Auto) % Neut # (Auto) (1.8-7.7) 10^3/u L Lymph # (Auto) (0.8-4.8) 10^3/u L [place] # (Auto) (0.2-0.9) 10^3/u L Eos # (Auto) (0.0-0.8) 10^3/u L Baso # (Auto) (0.0-0.1) 10^3/u L Nucleated RBC % (a uto) % Nucleated RBCs # /100WBC Sodium (136-145) mmol/L Potassium (3.5-5.1) mmol/L Chloride (98-107) mmol/L Carbon Dioxide (22-29) mmol/L Anion Gap (5-19) BUN (6-20) mg/dL Creatinine (0.5-0.9) mg/dL GFR Calculation (90-130) mL/min Glucose (65-115) mg/dL Calculated Osmolal ity (285-295) mOsm/k g Lactate (0.5-2.2) mmol/L Calcium (8.5-10.5) mg/dL Total Bilirubin (0.15-1.2) mg/dL AST (0-32) U/L ALT (0-33) U/L Alkaline Phosphata se (35-105) IU/L C-Reactive Protein (0.0-4.9) mg/L Total Protein (6.6-8.7) g/dL Albumin (3.5-5.2) g/dL Globulin (1.3-4.6) g/dL Lipase (13-60) U/L Urine Color Yellow (Yellow) Urine Appearance Cloudy (CLEAR) Urine pH 6.5 (5-7) Ur Specific Gravit y 1.020 (1.005-1.030) Urine Protein Neg (Negative) Urine Glucose (UA) Norm (Normal) Urine Ketones 3+ H (Negative) Urine Blood Neg (Negative) Urine Nitrate Negative (Negative) Urine Bilirubin 1+ H (Negative) Urine Urobilinogen 8 H (Negative) mg/dL Ur Leukocyte [place] 2+ H (Negative) Urine RBC 0-4 H (0-2) /hpf Urine WBC 40-55 H (0-5) /hpf Ur Squamous Epith Cells 25-40 H (0-5) /hpf Amorphous Sediment Not Reportable Urine Bacteria 1+ H (NONE) /hpf Urine Mucus 4+ /hpf Imaging Data ^: US: Attestation: I personally reviewed and interpreted this imaging study as follows: Radiologist's impression: [address] [address] Ultrasound Report Signed Patient: Stephanie Weinstein #: [id number] : 2000Acct#:[id number] Age/Sex: 20 FADM Date: 09/14/20 [facility] Attending Dr: Ordering Provider/Ordering MD: Crys Del Toro MD, [facility] [place] of Service: 09/14/20 Procedure(s): US gall bladder [id number] Accession Number(s): [id number] Report Number: [id number] PROCEDURE INFORMATION: Exam: US Abdomen, Limited; Right Upper Quadrant Exam date and time: 09/14/2020 6:55 PM Age: 20 years old Clinical indication: Abdominal pain; Acute; ; Additional info: Ruq pain worsening TECHNIQUE: Imaging protocol: US abdomen. Real time ultrasound with image documentation. Limited exam focused on the right upper quadrant. COMPARISON: US gall bladder [id number] 09/11/2020 2:04 AM FINDINGS: Real-time sonography of the right upper quadrant was performed. The pancreas is unremarkable. There is fatty infiltration of the liver. There is no liver mass. There is no intrahepatic biliary dilatation. There is hepatopedal flow within the portal vein. The hepatic veins are patent. The common bile duct measured 5 mm. Sludge is seen within the gallbladder. There also some stones. The gallbladder wall is not thickened. There is no pericholecystic fluid. The patient was tender over the gallbladder. The right kidney is normal in size. There is mild hydronephrosis of the right kidney. No free fluid is identified. US/US gall bladder [id number] IMPRESSION: 1. Sludge and stones within the gallbladder. The patient is tender over the gallbladder. 2. Mild hydronephrosis of the right kidney likely due to uterus. 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
[2020-09-14 18:12] LABS: Basophils % 0.1 %; Eosinophils % 0.1 %; Hematocrit 34.1 % (37.0-47.0); Hemoglobin 10.8 g/dL (11.5-15.3); Lymphocytes # 1.6 10^3/uL (0.8-4.8); Lymphocytes % 11.6 %; Mean Corpuscular HGB Conc 31.7 g/dL (30.0-36.0); Mean Corpuscular Hemoglobin 27.6 pg (28.0-34.0); Mean Corpuscular Volume 87.2 fL (81-99); Mean Platelet Volume 10.4 fL (7.4-10.4); Monocytes # 0.7 10^3/uL (0.2-0.9); Monocytes % 5.4 %; Neutrophils # 11.21 10^3/uL (1.8-7.7); Neutrophils % 82.3 %; Nucleated Red Blood Cells % 0 %; Platelet Count 283 10^3/cmm (130-400); Red Blood Count 3.91 10^6/uL (4.1-5.3); Red Cell Distribution Width 15.3 % (12.1-15.1); White Blood Count 13.6 10^3/uL (4.0-10.0)
[2020-09-14 18:31] LABS: Alanine Aminotransferase 61 U/L (0-33); Albumin Level 3.7 g/dL (3.5-5.2); Alkaline Phosphatase 80 IU/L (35-105); Anion Gap 17.7 (5-19); Aspartate Amino Transferase 48 U/L (0-32); Blood Urea Nitrogen 8 mg/dL (6-20); C Reactive Protein 7.9 mg/L (0.0-4.9); Calcium 8.9 mg/dL (8.5-10.5); Carbon Dioxide 19 mmol/L (22-29); Chloride 102 mmol/L (98-107); Globulin 3.3 g/dL (1.3-4.6); Glomerular Filtration Rate 201.5 mL/min (90-130); Glucose 79 mg/dL (65-115); Lactate (Lactic Acid level) 0.9 mmol/L (0.5-2.2); Lipase 26 U/L (13-60); Osmolality Calculated 279 mOsm/kg (285-295); Sodium 136 mmol/L (136-145); Total Bilirubin 0.5 mg/dL (0.15-1.2)
[2020-09-14 18:35] LABS: Potassium 2.7 mmol/L (3.5-5.1)
[2020-09-14 18:47] LABS: Urine Color Yellow (Yellow)
[2020-09-14 18:48] LABS: Add Urine Microscopic? YES; Bacteria Urine 1+ /hpf; Bilirubin Urine 1+ (Negative); Blood Urine Neg (Negative); Glucose Urine UA Norm (Normal); Ketones Urine 3+ (Negative); Leukocyte Esterase Urine 2+ (Negative); Mucus Urine 4+ /hpf; Nitrate Urine Negative (Negative); Protein Urine Neg (Negative); RBC Urine 0-4 /hpf (0-2); Squamous Epithelial Cell Urine 25-40 /hpf (0-5); Urine Appearance Cloudy (CLEAR); Urobilinogen Urine 8 mg/dL (Negative); WBC Urine 40-55 /hpf (0-5); pH Urine 6.5 (5-7)
[2020-09-14] MEDS: lidocaine 1% 5 ML in potassium chloride premix 100 ML 25 ML IV (20:17)
[2020-09-14] MEDS: sodium chloride 0.9% 1,000 ML 100 ML IV ×2 (20:17→23:23)
--- NOTE | 2020-09-14 20:20 | PC.NURSE ---
Dr. Walsh ordered to admit patient to OB instead of Med-Surg and to schedule lap rachael for 0900 in the morning.
[2020-09-15] VITALS (26 sets, daily range): BP systolic 114–147; BP diastolic 61–93; PULSE 60–105; RESP 14–21; TEMP 35.7–36.4; O2SAT 86–100
[2020-09-15 03:49] LABS: Basophils % 0.2 %; Eosinophils % 0.2 %; Hematocrit 30.8 % (37.0-47.0); Hemoglobin 9.8 g/dL (11.5-15.3); Lymphocytes # 1.4 10^3/uL (0.8-4.8); Lymphocytes % 13.2 %; Mean Corpuscular HGB Conc 31.8 g/dL (30.0-36.0); Mean Platelet Volume 10.8 fL (7.4-10.4); Monocytes # 0.6 10^3/uL (0.2-0.9); Monocytes % 5.3 %; Neutrophils # 8.52 10^3/uL (1.8-7.7); Neutrophils % 80.7 %; Nucleated Red Blood Cells % 0 %; Platelet Count 235 10^3/cmm (130-400); Red Cell Distribution Width 15.3 % (12.1-15.1); White Blood Count 10.6 10^3/uL (4.0-10.0)
[2020-09-15] MEDS: ondansetron 2 mg/ML SDV 2 mL 4 MG IVP (03:53)
[2020-09-15] MEDS: morphine 4 mg/mL SDV 1 mL IVP ×2 (03:54→10:50)
[2020-09-15 04:11] LABS: Alanine Aminotransferase 60 U/L (0-33); Albumin Level 3.4 g/dL (3.5-5.2); Alkaline Phosphatase 78 IU/L (35-105); Anion Gap 13.1 (5-19); Aspartate Amino Transferase 46 U/L (0-32); Blood Urea Nitrogen 6 mg/dL (6-20); Calcium 8.6 mg/dL (8.5-10.5); Carbon Dioxide 21 mmol/L (22-29); Chloride 106 mmol/L (98-107); Globulin 3.2 g/dL (1.3-4.6); Glomerular Filtration Rate 201.5 mL/min (90-130); Glucose 108 mg/dL (65-115); Osmolality Calculated 282 mOsm/kg (285-295); Potassium 3.1 mmol/L (3.5-5.1); Sodium 137 mmol/L (136-145); Total Bilirubin 0.5 mg/dL (0.15-1.2); Total Protein 6.6 g/dL (6.6-8.7)
--- NOTE | 2020-09-15 05:36 | PC.NURSE ---
Nurse spoke with Dr. Walsh last night when patient arrived to floor at approximately 2230 concerning a COVID-19 test to be done prior to surgery. He stated that it would not be back in time and patient would have to go to OR 6 for Covid Unknown. This was reported to patient's nurse, Obey Sheikh, RN
--- NOTE | 2020-09-15 07:44 | P.CONIM_ITS ---
Providers/Reason for Consult Consulting Physican/Specialty*: TRANSMISSION REBUILDER Reason for Consult*: Right upper quadrant pain, cholelithiasis, planned surgery. Attending Physician: Joe Walsh MD TRANSMISSION REBUILDER Consult HPI History of Present Illness Lakia Weinstein is a 20 year old female 1, para 0 with a reported EDC of 01/02/2021 based on 8-week ultrasound. This places her at 24-3/7 weeks gestation today. Patient reports care has been provided by Dr. Moore in [place]. She stated she did not go back to [facility] due to not liking the care she was getting but had not tranfer care yet to any provider. She presented [facility] ER due to abdominal pain and nausea and vomiting. Patient reports she has had problems with nausea and vomiting and upper abdominal pain the entire . Seen before at the ER for the third time. She was seen 3 days ago due to same CC. She had been diagnosed with [facility] Present Details : 1 Para: 0 Date of Last Menstrual Period: 03/25/20 Review of Systems Const: Denies: fever(s) or chills ENMT: Denies: throat pain or nasal congestion Card: Denies: chest pain or palpitations Resp: Denies: dyspnea, productive cough, non-productive cough or wheezing GI: Reports: abdominal pain, nausea and vomiting; Denies: diarrhea, constipation or hematochezia : Reports: other (Denies leaking of fluid or contractions. Reports movement.); Denies: dysuria, genital pruritis, vaginal bleeding, vaginal discharge or pelvic pain Neuro: Denies: headache(s) or dizziness Meds/Allergies Home Medications and Allergies Home Medications Medication Instructions Recorded Confirmed Last Taken Type hydrocodone-acetaminophen [Browns] 1 tab PO Q6H PRN #14 tab 09/11/20 09/14/20 11:00 Rx promethazine [Promethegan] 25 mg NE Q6H PRN #20 ea 09/11/20 Unknown Rx Allergies Allergy/AdvReac Type Severity Reaction Status Date / Time No Known Allergies Allergy Verified 09/12/20 02:57 Current Medications Current Medications Generic Name Dose Route Start Last Admin Trade Name Freq PRN Reason Stop Dose Admin Sodium Chloride 1,000 mls @ 100 mls/hr 09/14/20 19:45 09/14/20 23:23 Sodium Chloride 0.9% IV 100 mls/hr .Q10H RAJIV Administration Morphine Sulfate 4 mg 09/14/20 19:35 09/15/20 03:54 Morphine 4 Mg/Ml Sdv 1 Ml IVP 4 mg Q4H PRN Administration SEVERE PAIN Ondansetron HCl 4 mg 09/14/20 19:35 09/15/20 03:53 Ondansetron 2 Mg/Ml Sdv 2 Ml IVP 4 mg Q6H PRN Administration NAUSEA AND VOMITING PFSH TRANSMISSION REBUILDER PFSH: Medical History No pertinent past medical history Surgical History No pertinent past surgical history Family History Denies family history of Diabetes CAD (coronary artery disease) Family history of premature coronary artery disease Lung disease Cancer Hypertension Stroke Social History Smoking and tobacco status: current every day smoker cigarettes [ Other cigarette details: Reports occasional tobacco use, but not during ] Alcohol intake: never Household members: family Vitals/I&O/Wt Last Vital Signs Temp 96.4 F L 09/15/20 07:34 Pulse 67 09/15/20 07:39 Resp 16 09/15/20 06:00 BP 142/69 09/15/20 07:35 Pulse Ox 99 09/15/20 07:39 09/14/20 09/15/20 09/15/20 22:59 06:59 14:59 Intake Total 310 / 310 Balance 310 / 310 Weight last 48 hrs Weight 108.862 kg Physical Exam Narrative: EXAM NARRATIVE: Patient was sleeping soundly on arrival to the room. Was somewhat difficult to wake up. Once awake, was reporting severe upper abdominal pain and was rocking in bed. Const: COMMON NORMALS: no acute distress, alert and well nourished GENERAL APPEARANCE: well developed NUTRITIONAL APPEARANCE: obese ORIENTATION/CONSCIOUSNESS: Yes oriented to person, Yes oriented to place and Yes oriented to time Neck/C-Spine: COMMON NORMALS: Thyroid normal GENERAL: Yes trachea midline THYROID: Thyroid normal Resp: COMMON NORMALS: normal respiratory effort and clear to auscultation bilaterally AUSCULTATION: clear to auscultation bilaterally Cardio: COMMON NORMALS: regular rate, regular rhythm, No gallops present (Cardio), No murmurs present (Cardio) and No rub (Cardio) RATE: regular rate RHYTHM: regular rhythm GI: COMMON NORMALS: Soft to palpation, No hepatosplenomegaly present and no ma sses (Except for nontender gravid uterus) INSPECTION: Yes central obesity AUSCULTATION: Yes normoactive bowel sounds PALPATION: Yes Soft to palpation, Yes Tenderness to palpation present (GI) Details: RUQ (Moderate degree), No Guarding due to palpation present (GI), No Rigid due to palpation, Yes No hepatosplenomegaly present and No Hernia present : EXTERNAL FEMALE EXAM: No Hernia present Back/Pelvis: COMMON NORMALS: no CVA tenderness (Bilaterally) Extremity: COMMON NORMALS: no clubbing, cyanosis or edema and no calf tenderness Neuro: SENSORIUM/ORIENTATION: Yes alert, Yes oriented to person, Yes oriented to place and Yes oriented to time Psych: COMMON NORMALS: normal affect MOOD & AFFECT: Yes euthymic mood Skin: COMMON NORMALS: no rashes or lesions noted GENERAL SKIN EXAM: no rashes or lesions noted A&P Assessment and plan (1) Right upper quadrant abdominal pain during in second trimester: Patient reporting right upper quadrant abdominal pain that has been present the begining of . Review of records from [facility], patient was evaluated and May 2020 at 8 weeks in the with similar complaints. She is reporting being given medications with ER visits, but no medications by her primary provider for OB, Dr. Mooer in [place]. She reported that the pain had gone away for approximately 2 months before returning yesterday. Her evaluation so far shows presence of small gallstones. However, it is uncertain if this is truly the cause for her pain. She does not appear to be having any type of obstetrical cause for the pain as she has no uterine tenderness noted. Because of the gallstones and the pain, general surgery, Dr. Walsh, has admitted her for a planned surgery. I am requesting records from Dr. Moore. Status: Acute (2) Nausea/vomiting in : Patient initially had nausea and vomiting at the beginning of and had been diagnosed with hyperemesis. According to her, the nausea vomiting had gone away for about 2 months before returning yesterday with the onset of her pain. This may or may not be related to the gallstones. Status: Acute (3) Gallstones: The patient admitted by general surgery. Patient had been evaluated in 05/2020 because of prior episodes of right upper quadrant pain with an ultrasound that did not show gallstones. However, gallbladder ultrasound on 09/11/[address] Walsh, general surgery, has scheduled surgery. Status: Acute Coding Level of Care Code Acute Ware Tester for [facility] Diagnoses Right upper quadrant abdominal pain during in second trimester O26.892; R10.11 Nausea/vomiting in O21.9 Gallstones K80.20
--- NOTE | 2020-09-15 08:48 | PM.HP ---
Providers/Chief Complaint Admitting Physician: Joe Walsh MD Chief Complaint: Gallstones History of Present Illness Lakia Weinstein is a 20 year old female who is 24-3 7 weeks gestation who gets her obstetric care at [facility]. Patient presented to the ER last night with abdominal pain mainly in the right upper quadrant associated nausea and vomiting. Patient had some chills but denies any fevers. She was admitted to the hospital previously on 09/12/2020 with similar complaints and at that point had had extensive discussions with the patient about observation versus surgery and at that point she elected to undergo conservative measures by staying on low-fat diet. She states that in spite of that she continues to have right upper quadrant pain. Review of Systems General: Reports: 10 or more systems reviewed and unremarkable except in HPI and below Medications/Allergies Home Medications Medication Instructions Recorded Confirmed Last Taken Type hydrocodone-acetaminophen [[place]] 1 tab PO Q6H PRN #14 tab 09/11/20 09/14/20 11:00 Rx promethazine [Promethegan] 25 mg MO Q6H PRN #20 ea 09/11/20 Unknown Rx Allergies Allergy/AdvReac Type Severity Reaction Status Date / Time No Known Allergies Allergy Verified 09/12/20 02:57 PFSH Acute PFSH: Medical History No pertinent past medical history Surgical History No pertinent past surgical history Family History Denies family history of Diabetes CAD (coronary artery disease) Family history of premature coronary artery disease Lung disease Cancer Hypertension Stroke Social History Smoking and tobacco status: current every day smoker cigarettes [ Other cigarette details: Reports occasional tobacco use, but not during ] Alcohol intake: never Household members: family Female Reproductive History: Date of last menstrual period: 03/25/20 : 1 Vitals/I&O/Wt Last Vital Signs Temp 96.4 F L 09/15/20 07:34 Pulse 74 09/15/20 07:53 Resp 16 09/15/20 06:00 BP 147/75 09/15/20 07:53 Pulse Ox 98 09/15/20 07:49 09/14/20 09/15/20 09/15/20 22:59 06:59 14:59 Intake Total 310 / 310 Balance 310 / 310 Weight last 48 hrs Weight 240 lb Physical Exam Narrative: EXAM NARRATIVE: HEENT: Normocephalic Eye: Sclera /conjunctiva normal Respiratory and chest: Bilateral clear breath sounds on auscultation Cardiovascular: Normal S1 and S2 heart sounds Abdomen: Soft to palpation, tender right upper quadrant, no uterine tenderness, Roy sign positive, uterus palpable just superior to the umbilicus Neurological: Oriented to place person and time Skin: Intact, no lesions appreciated on gross exam Data : 09/15/20 03:40 09/15/20 03:40 A&P Assessment and plan (1) Cholelithiasis: 20-year-old female who is 24 -3/7 weeks gestation who presents with right upper quadrant pain nausea and vomiting. Patient had initially been diagnosed with hyperemesis. This is her third visit to the ER since her onset of . She was admitted on 09/12/2020 where ultrasound had shown cholelithiasis without any evidence of cholecystitis which was again confirmed on an ultrasound repeated yesterday. Discussed options with the patient on the last visit, that point she wanted to stay on a low-fat diet but now that she has returned she wants to proceed with laparoscopic possible open cholecystectomy Procedure, risks, benefits and alternatives have been discussed with the patient who wishes to proceed with surgery. Status: Acute Qualifiers: Biliary obstruction: without biliary obstruction Cholecystitis presence: without cholecystitis Cholelithiasis location: gallbladder Qualified Code(s): K80.20 - Calculus of gallbladder without cholecystitis without obstruction Attestations Medical Necessity Statement*: Symptomatic cholelithiasis Coding Level of Care Code Acute Loan Review Analyst for [facility] Diagnoses Cholelithiasis K80.20 Biliary obstruction: without biliary obstruction Cholecystitis presence: without cholecystitis Cholelithiasis location: gallbladder
--- NOTE | 2020-09-15 08:55 | P.ANESASSM_ITS ---
Pre-Anesthetic Assessment Pre-Anesthetic Assessment: Height/Weight: Height 1.65 m Weight 108.862 kg Temp Pulse Resp BP Pulse Ox 96.4 F L 74 16 147/75 98 09/15/20 07:34 09/15/20 07:53 09/15/20 06:00 09/15/20 07:53 09/15/20 07:49 Preop Diagnosis: Cholelithiasis Proposed Procedure: Operation Date: 09/15/20 09:00 Proposed Procedures p Laparoscopic Cholecystectomy(Not Applicable) - Joe Walsh MD Familial anesthetic complications: none Was Beta Angelina taken within 24 hours: N/A Last Intake: 23:30 Social: Social History: No alcohol and No tobacco Exam: Pre-Anes Outpt Exam: alert, oriented x 3, clear to auscultation bilaterally and regular rate & rhythm Airway: Submandibular: WNL Cervical ROM: WNL MP: 2 Pulmonary: Pulmonary: None reported CV/HEM: CV/HEM: None reported : : None reported Hepatic: Hepatic: None reported GI: GI: GERD Metabolic: Metabolic: None reported Musc/skel: Musc/skel: None reported Neuropsych: Neuropsych: None reported Anesthetic Plan: ASA status: 3 Anesthesia: General Other: Pt 24 weeks and cleared by OBGYN for surgery. Spoke with pt in length on risk of surgery to pt, fetus and . Pt agreed to proceed with risks Meds/Allergies Current Medications: Current Medications Generic Name Dose Route Start Last Admin Trade Name Freq PRN Reason Stop Dose Admin Sodium Chloride 1,000 mls @ 100 m ls/hr 09/14/20 19:45 09/14/20 23:23 Sodium Chloride 0.9% IV 100 mls/hr .Q10H RAJIV Administration Morphine Sulfate 4 mg 09/14/20 19:35 09/15/20 03:54 Morphine 4 Mg/Ml Sdv 1 Ml IVP 4 mg Q4H PRN Administration SEVERE PAIN Ondansetron HCl 4 mg 09/14/20 19:35 09/15/20 03:53 Ondansetron 2 Mg /Ml Sdv 2 Ml IVP 4 mg Q6H PRN Administration NAUSEA AND VOMITI NG PFSH Anesthesia PFSH: Medical History (Updated 09/15/20 @ 08:56 by Joe Walsh MD) No pertinent past medical history Surgical History (Updated 09/15/20 @ 08:57 by Joe Walsh MD) Status post laparoscopic cholecystectomy (09/15/20) Family History Denies family history of Diabetes CAD (coronary artery disease) Family history of premature coronary artery disease Lung disease Cancer Hypertension Stroke Social History Smoking and tobacco status: current every day smoker cigarettes [ Other cigarette details: Reports occasional tobacco use, but not during ] Alcohol intake: never Household members: family Female Reproductive History: Date of last menstrual period: 03/25/20 : 1 Data Anesthesia CBC & Chem 7: 09/15/20 03:40 09/15/20 03:40 Other Labs: Laboratory Results - last 48 hr 09/14/20 09/14/20 09/14/20 18:00 18:00 18:00 WBC 13.6 H RBC 3.91 L Hgb 10.8 L Hct 34.1 L MCV 87.2 MCH 27.6 L MCHC 31.7 RDW 15.3 H Plt Count 283 MPV 10.4 Neut % (Auto) 82.3 Lymph % (Auto) 11.6 [place] % (Auto) 5.4 Eos % (Auto) 0.1 Baso % (Auto) 0.1 Neut # (Auto) 11.21 H Lymph # (Auto) 1.6 [place] # (Auto) 0.7 Eos # (Auto) 0.0 Baso # (Auto) 0.0 Nucleated RBC % (auto) 0 Nucleated RBCs # 0.0 Sodium 136 Potassium 2.7 L* Chloride 102 Carbon Dioxide 19 L Anion Gap 17.7 BUN 8 Creatinine 0.4 L GFR Calculation 201.5 H Glucose 79 Calculated Osmolality 279 L Lactate 0.9 Calcium 8.9 Total Bilirubin 0.5 AST 48 H ALT 61 H Alkaline Phosphatase 80 C-Reactive Protein 7.9 H Total Protein 7.0 Albumin 3.7 Globulin 3.3 Lipase 26 Urine Color Urine Appearance Urine pH Ur Specific [place] Urine Protein Urine Glucose (UA) Urine Ketones Urine Blood Urine Nitrate Urine Bilirubin Urine Urobilinogen Ur Leukocyte Esterase Urine RBC Urine WBC Ur Squamous Epith Cells Amorphous Sediment Urine Bacteria Urine Mucus Blood Type Rho(D) Type Antibody Screen 09/14/20 09/15/20 09/15/20 18:00 03:40 03:40 WBC 10.6 H RBC 3.50 L Hgb 9.8 L Hct 30.8 L MCV 88.0 MCH 28.0 MCHC 31.8 RDW 15.3 H Plt Count 235 MPV 10.8 H Neut % (Auto) 80.7 Lymph % (Auto) 13.2 [place] % (Auto) 5.3 Eos % (Auto) 0.2 Baso % (Auto) 0.2 Neut # (Auto) 8.52 H Lymph # (Auto) 1.4 [place] # (Auto) 0.6 Eos # (Auto) 0.0 Baso # (Auto) 0.0 Nucleated RBC % (auto) 0 Nucleated RBCs # 0.0 Sodium 137 Potassium 3.1 L Chloride 106 Carbon Dioxide 21 L Anion Gap 13.1 BUN 6 Creatinine 0.4 L GFR Calculation 201.5 H Glucose 108 Calculated Osmolality 282 L Lactate Calcium 8.6 Total Bilirubin 0.5 AST 46 H ALT 60 H Alkaline Phosphatase 78 C-Reactive Protein Total Protein 6.6 Albumin 3.4 L Globulin 3.2 Lipase Urine Color Yellow Urine Appearance Cloudy Urine pH 6.5 Ur Specific [place] 1.020 Urine Protein Neg Urine Glucose (UA) Norm Urine Ketones 3+ H Urine Blood Neg Urine Nitrate Negative Urine Bilirubin 1+ H Urine Urobilinogen 8 H Ur Leukocyte Esterase 2+ H Urine RBC 0-4 H Urine WBC 40-55 H Ur Squamous Epith Cells 25-40 H Amorphous Sediment Not Reportable Urine Bacteria 1+ H Urine Mucus 4+ Blood Type Rho(D) Type Antibody Screen 09/15/20 03:40 WBC RBC Hgb Hct MCV MCH MCHC RDW Plt Count MPV Neut % (Auto) Lymph % (Auto) [place] % (Auto) Eos % (Auto) Baso % (Auto) Neut # (Auto) Lymph # (Auto) [place] # (Auto) Eos # (Auto) Baso # (Auto) Nucleated RBC % (auto) Nucleated RBCs # Sodium Potassium Chloride Carbon Dioxide Anion Gap BUN Creatinine GFR Calculation Glucose Calculated Osmolality Lactate Calcium Total Bilirubin AST ALT Alkaline Phosphatase C-Reactive Protein Total Protein Albumin Globulin Lipase Urine Color Urine Appearance Urine pH Ur Specific [place] Urine Protein Urine Glucose (UA) Urine Ketones Urine Blood Urine Nitrate Urine Bilirubin Urine Urobilinogen Ur Leukocyte Esterase Urine RBC Urine WBC Ur Squamous Epith Cells Amorphous Sediment Urine Bacteria Urine Mucus Blood Type A Positive Rho(D) Type Positive Antibody Screen Negative Cardiac Studies: No Data to Display
[2020-09-15] MEDS: ceFAZolin 1,000 mg SDV 2000 MG IVP (09:00)
--- NOTE | 2020-09-15 10:28 | PC.NURSE ---
[id number]- [facility] [address] [address]
[2020-09-15] MEDS: sodium chloride 0.9% 1,000 ML 100 ML IV (10:50)
--- NOTE | 2020-09-15 11:06 | PM.OP ---
Operative Report Date of procedure: September 15, 2020 Pre-op Diagnosis: Cholelithiasis Post-op diagnosis: same Procedure Done: Laparoscopic cholecystectomy Specimens removed/disposition: Gallbladder Surgeon: Joe Walsh Anesthesia: General Estimated blood loss (mL): 10 Disposition: PACU Procedure: The patient was taken to the operating room and was intubated under general anesthesia. After the antibiotic had been administered, the abdomen was prepped and draped in a sterile manner. Using a #15 blade, a 1 centimeter infraumbilical curvilinear incision was made and using an open Evelyne technique the peritoneal cavity was entered. A 10 millimeter port was placed and 12 millimeters of pneumoperitoneum was created. A 10 millimeter, 30 degrees scope was then introduced. Three 5 millimeter ports were placed in the epigastric, midclavicular and the anterior axillary line two fingerbreadths below the costal margin on the right side under the direct visualization. Ratcheted forceps were introduced into the lateral most port and was used to retract the fundus of the gallbladder cephalad and using forceps the infundibulum of the gallbladder was retracted laterally. Using L-hook cautery the peritoneum overlying the Calot's triangle was opened medially and laterally until the cystic duct and the cystic artery were skeletonized. Dissection was carried along the body of the gallbladder and after ensuring critical view of safety, 4 clips applied on the cystic duct and 3 clips applied on the cystic artery and cut leaving, 3 clips on the remaining portion of the duct and 2 clips on the remaining portion of the artery. The gallbladder was distended and therefore it is decompressed using an aspiration needle. There was spillage of bile which was irrigated and suctioned out. There was no spillage of stones. The rest of the gallbladder was dissected off the liver using L-hook cautery. There was no bleeding or bile leaking noted from the gallbladder fossa and the clips appeared to be in place. An EndoCatch bag was introduced to remove the gallbladder. All the ports were removed under direct visualization and there was no bleeding noted from the port sites. The fascia of the umbilicus was closed using [id number] 0 Vicryl sutures and the subcutaneous tissue was approximated using 3-0 Vicryl sutures. The skin at all four ports were closed using 4-0 Monocryl and Dermabond. A total of 10 millimeters of 0.5% Marcaine was infiltrated around the port sites. The patient was stable throughout the procedure.
--- NOTE | 2020-09-15 11:09 | P.DS_ITS ---
Discharge Providers Date of Admission: 09/14/20 19:35 Date of Discharge: September 15, 2020 Attending Provider at Admission: Joe Walsh MD Attending Provider at Discharge: Joe Walsh MD Diagnoses at Discharge Discharge Diagnosis (1) Cholelithiasis: Status: Resolved Qualifiers: Biliary obstruction: without biliary obstruction Cholecystitis pres ence: without cholecystitis Cholelithiasis location: gallbladder Qualified Code(s): K80.20 - Calculus of gallbladder without cholecystitis without obstruction Reason for Visit Reason for Visit: Gallstones Hospital Course Hospital Course This is a 20-year-old female was admitted to the hospital on third occasion with right upper quadrant pain, nausea and vomiting. Ultrasound had shown gallstones on her last visit a few days ago. At that point she had decided to stay on a low-fat diet and avoid surgery but she presented with persistent right upper quadrant pain. Repeat ultrasound confirmed cholelithiasis, Roy sign positive. Patient was admitted overnight and underwent laparoscopic cholecystectomy. At time of discharge her vital signs are stable she is tolerating clear liquid diet and heart tones are present postop. Discharge Data Data Completed and Pending: Completed Studies During Hospitalization Category Date Time Status US gall bladder 7 [id number] Urgent Ultrasound 09/14/20 17:39 Completed Pending at discharge Category Date Time Status Pathology: Surgic al [PTH] Routine Pth 09/15/20 09:39 Ordered Labs from last 24 hours 09/15/20 09/15/20 09/15/20 03:40 03:40 03:40 WBC 10.6 H RBC 3.50 L Hgb 9.8 L Hct 30.8 L MCV 88.0 MCH 28.0 MCHC 31.8 RDW 15.3 H Plt Count 235 MPV 10.8 H Neut % (Auto) 80.7 Lymph % (Auto) 13.2 [place] % (Auto) 5.3 Eos % (Auto) 0.2 Baso % (Auto) 0.2 Neut # (Auto) 8.52 H Lymph # (Auto) 1.4 [place] # (Auto) 0.6 Eos # (Auto) 0.0 Baso # (Auto) 0.0 Nucleated RBC % (a uto) 0 Nucleated RBCs # 0.0 Sodium 137 Potassium 3.1 L Chloride 106 Carbon Dioxide 21 L Anion Gap 13.1 BUN 6 Creatinine 0.4 L GFR Calculation 201.5 H Glucose 108 Calculated Osmolal ity 282 L Lactate Calcium 8.6 Total Bilirubin 0.5 AST 46 H ALT 60 H Alkaline Phosphata se 78 C-Reactive Protein Total Protein 6.6 Albumin 3.4 L Globulin 3.2 Lipase Urine Color Urine Appearance Urine pH Ur Specific [place] Urine Protein Urine Glucose (UA) Urine Ketones Urine Blood Urine Nitrate Urine Bilirubin Urine Urobilinogen Ur Leukocyte [place] Urine RBC Urine WBC Ur Squamous Epith Cells Amorphous Sediment Urine Bacteria Urine Mucus Blood Type A Positive Rho(D) Type Positive Antibody Screen Negative 09/14/20 09/14/20 09/14/20 18:00 18:00 18:00 WBC RBC Hgb Hct MCV MCH MCHC RDW Plt Count MPV Neut % (Auto) Lymph % (Auto) [place] % (Auto) Eos % (Auto) Baso % (Auto) Neut # (Auto) Lymph # (Auto) [place] # (Auto) Eos # (Auto) Baso # (Auto) Nucleated RBC % (a uto) Nucleated RBCs # Sodium 136 Potassium 2.7 L* Chloride 102 Carbon Dioxide 19 L Anion Gap 17.7 BUN 8 Creatinine 0.4 L GFR Calculation 201.5 H Glucose 79 Calculated Osmolal ity 279 L Lactate 0.9 Calcium 8.9 Total Bilirubin 0.5 AST 48 H ALT 61 H Alkaline Phosphata se 80 C-Reactive Protein 7.9 H Total Protein 7.0 Albumin 3.7 Globulin 3.3 Lipase 26 Urine Color Yellow Urine Appearance Cloudy Urine pH 6.5 Ur Specific [place] 1.020 Urine Protein Neg Urine Glucose (UA) Norm Urine Ketones 3+ H Urine Blood Neg Urine Nitrate Negative Urine Bilirubin 1+ H Urine Urobilinogen 8 H Ur Leukocyte [place] 2+ H Urine RBC 0-4 H Urine WBC 40-55 H Ur Squamous Epith Cells 25-40 H Amorphous Sediment Not Reportable Urine Bacteria 1+ H Urine Mucus 4+ Blood Type Rho(D) Type Antibody Screen 09/14/20 18:00 WBC 13.6 H RBC 3.91 L Hgb 10.8 L Hct 34.1 L MCV 87.2 MCH 27.6 L MCHC 31.7 RDW 15.3 H Plt Count 283 MPV 10.4 Neut % (Auto) 82.3 Lymph % (Auto) 11.6 [place] % (Auto) 5.4 Eos % (Auto) 0.1 Baso % (Auto) 0.1 Neut # (Auto) 11.21 H Lymph # (Auto) 1.6 [place] # (Auto) 0.7 Eos # (Auto) 0.0 Baso # (Auto) 0.0 Nucleated RBC % (a uto) 0 Nucleated RBCs # 0.0 Sodium Potassium Chloride Carbon Dioxide Anion Gap BUN Creatinine GFR Calculation Glucose Calculated Osmolal ity Lactate Calcium Total Bilirubin AST ALT Alkaline Phosphata se C-Reactive Protein Total Protein Albumin Globulin Lipase Urine Color Urine Appearance Urine pH Ur Specific [place] Urine Protein Urine Glucose (UA) Urine Ketones Urine Blood Urine Nitrate Urine Bilirubin Urine Urobilinogen Ur Leukocyte [place] Urine RBC Urine WBC Ur Squamous Epith Cells Amorphous Sediment Urine Bacteria Urine Mucus Blood Type Rho(D) Type Antibody Screen Vitals: Last Vital Signs Temp 97.3 F L 09/15/20 10:52 Pulse 68 09/15/20 10:52 Resp 21 H 09/15/20 10:52 BP 123/75 09/15/20 10:52 Pulse Ox 99 09/15/20 10:52 Discharge Plan Discharge Patient Disposition: Home Condition: Stable Prescriptions: New [place] 5-325 mg tablet 1 tab PO Q6H 7 Days Qty: 20 RF: 0 docusate sodium [Colace] 100 mg capsule 100 mg PO BID Qty: 30 RF: 0 Continued hydrocodone-acetaminophen [[place]] 5-325 mg tablet 1 tab PO Q6H PRN (Reason: pain) Qty: 14 RF: 0 promethazine [Promethegan] 25 mg suppository 25 mg CO Q6H PRN (Reason: nausea and vomiting) Qty: 20 RF: 0 Discharge Orders: Discharge Order (Routine); Ordered 09/15/20 Ordered By: Joe Walsh Referrals: Joe Walsh MD [Physician] - 2 weeks Discharge Diet: Advance as tolerated Activity Restrictions/Additional Instructions: 1. Up and walking as tolerated. 2. Ok to shower in 48 hours after surgery. 3. Remove Dermabond dressing in 7-10 days. 4. Do not lift more than 10 pounds. 5. Do not operate heavy machinery or drive while using pain medications. 6. Advised to return to ER or contact my office if there are any signs of infection like, increasing pain, fevers, chills, redness or drainage of pus. Discharge Attestations Time Spent in Discharge Care*: less than 30 min Quality Metrics Clinical Quality Measures During this hospital stay, did patient experience: None Coding Level of Care Code Acute Licensed Professional Counselor for Chg Fwd Diagnoses Cholelithiasis K80.20 Biliary obstruction: without biliary obstruction Cholecystitis presence: without cholecystitis Cholelithiasis location: gallbladder
[2020-09-15] MEDS: HYDROcodone-acetaminophen 5-325 mg Tablet 1 TAB PO (11:25)
--- NOTE | 2020-09-15 11:51 | ANE.PACU2 ---
Inpatient post-anesthesia follow up: Airway intact: Yes Vital signs: Temperature 97.3 F Pulse Rate [Left R adial] 94 Pulse Rate 100 Respiratory Rate 18 Blood Pressure [Le ft Arm] 110/71 Blood Pressure 127/76 Pulse Oximetry 100 Oxygen Delivery Me thod Room Air Oxygen Flow Rate 8 Fraction of Inspir ed Oxygen Hydration adequate: Yes Nausea and vomiting: No Pain level: 3 Mental status: Baseline
--- NOTE | 2020-09-17 17:06 | PC.RESP ---
SMOKING CESSATION INFORMATION SENT TO PATIENT.
== END 2020-09-15 14:42 | disposition home or self-care (01) | DRG 819 ==
LOC: ER 19:51 → MEDSURG 19:54 → OBGYN 20:25
PROVIDERS: Admitting Provider Surgery; Emergency Provider Family Medicine; Visit Provider Surgery
PROC: 0FT44ZZ Resection of Gallbladder, Percutaneous Endoscopic Approach (ICD-10-PCS; CPT 47562; principal; 2020-09-15 08:40)
DX: O99.612 Diseases of the digestive system complicating pregnancy, second trimester (principal); Z3A.24 24 weeks gestation of pregnancy; K80.20 Calculus of gallbladder without cholecystitis without obstruction; O99.332 Smoking (tobacco) complicating pregnancy, second trimester; F17.210 Nicotine dependence, cigarettes, uncomplicated
CPT/HCPCS: 12345; 76705; 80053; 81001; 83605; 83690; 85025; 86140; 86850; 86900; 88304; 99283; J0330; J0690; J2270; J2405; J2704; J2710; J3010; J3480; J3490; J7030

== ENCOUNTER 2021-11-30 01:18 | Emergency (ER) | payer MEDICAID, SELFPAY ==
[2021-11-30] VITALS (12 sets, daily range): BP systolic 105–127; BP diastolic 45–100; PULSE 45–82; RESP 14–24; TEMP 36.8; O2SAT 96–100; BMI 40.3
--- NOTE | 2021-11-30 01:42 | CTR_ITS ---
PROCEDURE INFORMATION: Exam: CT Abdomen And Pelvis With Contrast Exam date and time: 11/30/2021 2:38 AM Age: 21 years old Clinical indication: Nausea and vomiting; Abdominal pain; Prior surgery; Surgery type: Gb; Patient HX: C/O severe epigastric pain with n/v. TECHNIQUE: Imaging protocol: Computed tomography of the abdomen and pelvis with contrast. Radiation optimization: All CT scans at this facility use at least one of these dose optimization techniques: automated exposure control; mA and/or kV adjustment per patient size (includes targeted exams where dose is matched to clinical indication); or iterative reconstruction. Contrast material: OMNI 350; Contrast volume: 95 ml; Contrast route: INTRAVENOUS (IV); COMPARISON: No relevant prior studies available. RADIATION DOSE METRICS: Total DLP (mGy-cm): 1867.54 FINDINGS: Lungs: The lung bases are clear. Liver: There is mild periportal edema in the liver. This is a nonspecific finding, that can be seen in hepatitis and other hepatic abnormalities. It can also be a nonsignificant finding, sometimes seen in overhydration. Please correlate clinically. Gallbladder and bile ducts: Prior cholecystectomy, no significant biliary tree dilation. Pancreas: Unremarkable. Spleen: Unremarkable. Adrenal glands: Unremarkable. Kidneys and ureters: Unremarkable. Stomach and bowel: No significant bowel distention. There are no CT findings to strongly suggest diverticulitis. Appendix: The appendix is not identified with certainty, however no the pericecal inflammatory changes are seen. Intraperitoneal space: No free intraperitoneal air, or ascites. Arteries: No evidence for abdominal aortic aneurysm. Lymph nodes: No retroperitoneal adenopathy. Urinary bladder: Unremarkable as visualized. Reproductive: The left ovary contains a 15 mm dominant follicle versus very small cyst. Significance unlikely due to small size. Small amount of cul-de-sac fluid. Bones/joints: Moderate disc space narrowing at L5-S1. Soft tissues: No significant acute finding. CT/CT abdomen pelvis w con* [id number] IMPRESSION: 1. No free air or bowel distention. No evidence for bowel obstruction. 2. Mild periportal edema in the liver, see above. 3. Prior cholecystectomy, no significant biliary tree dilation. 4. The left ovary contains a 15 mm dominant follicle versus very small cyst. Significance unlikely due to small size. Small amount of cul-de-sac fluid. 5. Other findings discussed above. 6. Some limitations due to artifact from patient motion.
--- NOTE | 2021-11-30 01:44 | W.ED.ABDPA2 ---
Documented by User: LIZZY Medina 11/30/21 01:46 HPI - Abdominal Pain General: Chief Complaint: Abdominal Pain Stated Complaint: ABD PAIN Time Seen by Provider: 11/30/21 01:35 History of Present Illness: Patient says he has been sick since yesterday. Said she was seen at [facility] yesterday had labs studies done nothing was found. She states she was given Zofran and another medication and she was better. She said she was given prescription for home she did not get that filled. The patient said she started back with the abdominal discomfort this afternoon evening. Said she felt nauseated. Denies any fever chills or exposure to any illnesses. Says she is also had some diarrhea. Patient said she smokes pot twice a day. No history of hyperemesis syndrome. Associated Symptoms: Reports belching, diarrhea and nausea; Denies chills, fever(s) and vomiting Related Data: Date of Last Menstrual Period: 03/25/20 Review of Systems Narrative: Abdominal discomfort sporadic since yesterday. Seen at [facility] yesterday she said they did not find thing wrong with her. Const: Denies: fever(s), chills or body aches Eyes: Denies: eye discomfort ENMT: Denies: throat pain Card: Denies: chest pain Resp: Denies: dyspnea GI: Reports: abdominal pain, nausea, diarrhea and belching; Denies: vomiting Skin/Breast: Denies: rash Neuro: Denies: headache(s) Psych: Denies: depression or suicidal ideation [facility] ED PFSH: Medical History (Updated 11/30/21 @ 05:25 by Jasiel Krause DO) No pertinent past medical history Surgical History (Updated 10/05/20 @ 16:38 by Joe Walsh MD) Status post laparoscopic cholecystectomy (09/15/20) Family History Denies family history of Diabetes CAD (coronary artery disease) Family history of premature coronary artery disease Lung disease Cancer Hypertension Stroke Social History Smoking and tobacco status: current every day smoker cigarettes [ Other cigarette details: Reports occasional tobacco use, but not during ] Alcohol intake: never Household members: family Female Reproductive History: Date of last menstrual period: 03/25/20 Physical Exam Const: COMMON NORMALS: no acute distress, patient oriented x3 and alert HENMT: COMMON NORMALS: normocephalic and external ears normal HEAD & SCALP: normocephalic EXTERNAL EAR: Yes external ears normal Eye: COMMON NORMALS: EOMs intact bilaterally Neck/C-Spine: COMMON NORMALS: no JVD Resp: COMMON NORMALS: normal respiratory effort and No use of accessory muscles Cardio: COMMON NORMALS: no JVD GI: INSPECTION: Yes normal to inspection AUSCULTATION: Yes normoactive bowel sounds PALPATION: Yes Other GI palpation findings present (No specific area of tenderness. Or generalized) Extremity: COMMON NORMALS: normal to inspection and full ROM Neuro: COMMON NORMALS: patient oriented x3 SENSORIUM/ORIENTATION: Yes alert Psych: COMMON NORMALS: mental status grossly normal Skin: COMMON NORMALS: no rashes or lesions noted GENERAL SKIN EXAM: no rashes or lesions noted Course Vital Signs: Vital signs: Vital Signs Temperature 98.2 F 11/30/21 01:23 Pulse Rate 47 L 11/30/21 04:30 Respiratory Rate 14 11/30/21 04:30 Blood Pressure 127/57 11/30/21 04:30 Pulse Oximetry 96 11/30/21 04:30 MDM - Abdominal Pain Lab Data : 11/30/21 01:30 11/30/21 01:30 Labs/Radiology: Radiology Impressions Abdomen/Pelvis CT 11/30/21 01:42 IMPRESSION: 1. No free air or bowel distention. No evidence for bowel obstruction. 2. Mild periportal edema in the liver, see above. 3. Prior cholecystectomy, no significant biliary tree dilation. 4. The left ovary contains a 15 mm dominant follicle versus very small cyst. Significance unlikely due to small size. Small amount of cul-de-sac fluid. 5. Other findings discussed above. 6. Some limitations due to artifact from patient motion. Laboratory Results WBC 10.2 10^3/uL (4.0-10.0) H 11/30/21 01:30 RBC 4.58 10^6/uL (4.1-5.3) 11/30/21 01:30 Hgb 12.1 g/dL (11.5-15.3) 11/30/21 01:30 Hct 36.8 % (37.0-47.0) L 11/30/21 01:30 MCV 80.3 fl (81-99) L 11/30/21 01:30 MCH 26.4 pg (28.0-34.0) L 11/30/21 01:30 MCHC 32.9 g/dL (30.0-36.0) 11/30/21 01:30 RDW 16.1 % (12.1-15.1) H 11/30/21 01:30 Plt Count 267 10^3/cmm (130-400) 11/30/21 01:30 MPV 11.6 fL (7.4-10.4) H 11/30/21 01:30 Neut % (Auto) 79.3 % 11/30/21 01:30 Lymph % (Auto) 14.4 % 11/30/21 01:30 [place] % (Auto) 5.5 % 11/30/21 01:30 Eos % (Auto) 0.2 % 11/30/21 01:30 Baso % (Auto) 0.3 % 11/30/21 01:30 Neut # (Auto) 8.05 10^3/uL (1.8-7.7) H 11/30/21 01:30 Lymph # (Auto) 1.5 10^3/uL (0.8-4.8) 11/30/21 01:30 [place] # (Auto) 0.6 10^3/uL (0.2-0.9) 11/30/21 01:30 Eos # (Auto) 0.0 10^3/uL (0.0-0.8) 11/30/21 01:30 Baso # (Auto) 0.0 10^3/uL (0.0-0.1) 11/30/21 01:30 Nucleated RBC % (auto) 0 % 11/30/21 01:30 Nucleated RBCs # 0.0 /100WBC 11/30/21 01:30 Sodium 135 mmol/L (136-145) L 11/30/21 01:30 Potassium 3.1 mmol/L (3.5-5.1) L 11/30/21 01:30 Chloride 101 mmol/L (98-107) 11/30/21 01:30 Carbon Dioxide 18 mmol/L (22-29) L 11/30/21 01:30 Anion Gap 19.1 (5-19) H 11/30/21 01:30 BUN 14 mg/dL (6-20) 11/30/21 01:30 Creatinine 0.9 mg/dL (0.5-0.9) 11/30/21 01:30 GFR Calculation 78.3 mL/min (90-130) L 11/30/21 01:30 Glucose 103 mg/dL (65-115) 11/30/21 01:30 Calculated Osmolality 281 mOsm/kg (285-295) L 11/30/21 01:30 Calcium 8.7 mg/dL (8.5-10.5) 11/30/21 01:30 Phosphorus 1.3 mg/dL (2.5-4.5) L 11/30/21 01:30 Magnesium 1.9 mg/dL (1.7-2.3) 11/30/21 01:30 Total Bilirubin 0.5 mg/dL (0.15-1.2) 11/30/21 01:30 AST 18 U/L (0-32) 11/30/21 01:30 ALT 15 U/L (0-33) 11/30/21 01:30 Alkaline Phosphatase 73 IU/L (35-105) 11/30/21 01:30 Troponin T Gen 5 ng/L 7 ng/L (0-10) 11/30/21 01:30 C-Reactive Protein 3.0 mg/L (0.0-4.9) 11/30/21 01:30 Total Protein 7.1 g/dL (6.6-8.7) 11/30/21 01:30 Albumin 4.6 g/dL (3.5-5.2) 11/30/21 01:30 Globulin 2.5 g/dL (1.3-4.6) 11/30/21 01:30 Lipase 17 U/L (13-60) 11/30/21 01:30 HCG, Qual Negative (Negative) 11/30/21 01:30 Urine Color Yellow (Yellow) 11/30/21 03:20 Urine Appearance Clear (CLEAR) 11/30/21 03:20 Urine pH 5 (5-7) 11/30/21 03:20 Ur Specific [place] 1.010 (1.005-1.030) 11/30/21 03:20 Urine Protein Trace (Negative) 11/30/21 03:20 Urine Glucose (UA) Norm (Normal) 11/30/21 03:20 Urine Ketones 2+ (Negative) H 11/30/21 03:20 Urine Blood Neg (Negative) 11/30/21 03:20 Urine Nitrate Negative (Negative) 11/30/21 03:20 Urine Bilirubin Neg (Negative) 11/30/21 03:20 Urine Urobilinogen Norm mg/dL (Negative) 11/30/21 03:20 Ur Leukocyte Esterase 1+ (Negative) H 11/30/21 03:20 Urine RBC 0-4 /hpf (0-2) H 11/30/21 03:20 Urine WBC 5-10 /hpf (0-5) H 11/30/21 03:20 Ur Squamous Epith Cells 0-4 /hpf (0-5) H 11/30/21 03:20 Amorphous Sediment Not Reportable 11/30/21 03:20 Urine Bacteria Trace /hpf (NONE) 11/30/21 03:20 Urine Opiates Screen Positive ng/mL (Negative) H 11/30/21 03:20 Ur Barbiturates Screen Negative ng/mL (Negative) 11/30/21 03:20 Ur Phencyclidine Scrn Negative ng/mL (Negative) 11/30/21 03:20 Ur Amphetamines Screen Negative ng/mL (Negative) 11/30/21 03:20 U Benzodiazepines Scrn Negative ng/mL (Negative) 11/30/21 03:20 Urine Cocaine Screen Negative ng/mL (Negative) 11/30/21 03:20 U Marijuana (THC) Screen Positive ng/mL (Negative) H 11/30/21 03:20 Ethyl Alcohol < 10 mg/dL (0-10) 11/30/21 01:30 Discharge Plan Discharge Patient Disposition: Home Clinical Impression: Abdominal pain, Vomiting Condition: Stable Prescriptions: New ondansetron 4 mg film 4 mg PO DAILY PRN (Reason: nausea and vomiting) Qty: 10 0RF No Action hydrocodone-acetaminophen [[place]] 5-325 mg tablet 1 tab PO Q6H PRN (Reason: pain) Qty: 14 0RF promethazine [Promethegan] 25 mg suppository 25 mg FL Q6H PRN (Reason: nausea and vomiting) Qty: 20 0RF Colace 100 mg capsule 100 mg PO BID Qty: 30 0RF Discharge Orders: Discharge ED (Routine); Ordered 11/30/21 Ordered By: Jasiel Krause Discharge Diet: Clear Liquid Discharge Activity: Increase activity as tolerated Patient Instructions: Hypokalemia (ED), Acute Nausea and Vomiting (ED), Abdominal Pain (ED) Activity Restrictions/Additional Instructions: Return for fever greater than 100, vomiting liquids or medications, worsening pain despite treatment, other concerning symptoms. Consider not using marijuana, as this can be a cause of your problem. Coding Level of Care Code ED [employer] for Chg Fwd Exam Comprehensive Documented by User: Jasiel Krause DO 11/30/21 05:30 HPI - Abdominal Pain General: Chief Complaint: Abdominal Pain Stated Complaint: ABD PAIN Time Seen by Provider: 11/30/21 01:35 [facility] ED PFSH: Medical History (Updated 11/30/21 @ 05:25 by Jasiel Krause DO) No pertinent past medical history Surgical History (Updated 10/05/20 @ 16:38 by Joe Walsh MD) Status post laparoscopic cholecystectomy (09/15/20) Family History Denies family history of Diabetes CAD (coronary artery disease) Family history of premature coronary artery disease Lung disease Cancer Hypertension Stroke Social History Smoking and tobacco status: current every day smoker cigarettes [ Other cigarette details: Reports occasional tobacco use, but not during ] Alcohol intake: never Household members: family Course Vital Signs: Vital signs: Vital Signs Temperature 98.2 F 11/30/21 01:23 Pulse Rate 47 L 11/30/21 04:30 Respiratory Rate 14 11/30/21 04:30 Blood Pressure 127/57 11/30/21 04:30 Pulse Oximetry 96 11/30/21 04:30 MDM - Abdominal Pain Medical Decision Making [id number] female with intense epigastric belly pain and vomiting, previously seen by LIZZY King. I agree with his history, evaluation, and treatment. She has had IV fluid, pain medication, and antiemetic. She has been resting comfortably without vomiting for the last 3 hours. No resurgence of her belly pain. Her white blood cell count is 10.2. Hemoglobin 12. Her potassium is 3.1 with a quite low phosphorus. She is getting infused with potassium and phosphate IV for this. Upon completion of that, she will be allowed home. Her CT is free of any acute findings. She has been bradycardic here with heart rates 5. Appears to be sinus. Her troponin is negative. EKG other than bradycardia shows no significant abnormality, and her blood pressures have been stable. This potentially could be due to hypokalemia or hypophosphatemia, although unlikely, and is likely increased vagal tone from nausea, and retching. Lab Data : 11/30/21 01:30 11/30/21 01:30 Labs/Radiology: Radiology Impressions Abdomen/Pelvis CT 11/30/21 01:42
[2021-11-30] MEDS: sodium chloride 0.9% 1,000 ML 999 ML IV (01:49)
[2021-11-30] MEDS: ondansetron 2 mg/ML SDV 2 mL 4 MG IVP (01:50)
[2021-11-30] MEDS: haloperidol inj 5 mg/mL INJ 1 mL 3 MG IVP (01:52)
[2021-11-30] MEDS: HYDROmorphone 1 mg/mL INJ 1 mL IVP (01:54)
[2021-11-30 02:08] LABS: Basophils % 0.3 %; Eosinophils % 0.2 %; Hematocrit 36.8 % (37.0-47.0); Hemoglobin 12.1 g/dL (11.5-15.3); Lymphocytes # 1.5 10^3/uL (0.8-4.8); Lymphocytes % 14.4 %; Mean Corpuscular HGB Conc 32.9 g/dL (30.0-36.0); Mean Corpuscular Hemoglobin 26.4 pg (28.0-34.0); Mean Corpuscular Volume 80.3 fl (81-99); Mean Platelet Volume 11.6 fL (7.4-10.4); Monocytes # 0.6 10^3/uL (0.2-0.9); Monocytes % 5.5 %; Neutrophils # 8.05 10^3/uL (1.8-7.7); Neutrophils % 79.3 %; Nucleated Red Blood Cells % 0 %; Platelet Count 267 10^3/cmm (130-400); Red Blood Count 4.58 10^6/uL (4.1-5.3); Red Cell Distribution Width 16.1 % (12.1-15.1); White Blood Count 10.2 10^3/uL (4.0-10.0)
[2021-11-30 02:27] LABS: HCG, Serum Qual Negative (Negative)
[2021-11-30 02:31] LABS: Alanine Aminotransferase 15 U/L (0-33); Albumin Level 4.6 g/dL (3.5-5.2); Alkaline Phosphatase 73 IU/L (35-105); Anion Gap 19.1 (5-19); Aspartate Amino Transferase 18 U/L (0-32); Blood Urea Nitrogen 14 mg/dL (6-20); Calcium 8.7 mg/dL (8.5-10.5); Carbon Dioxide 18 mmol/L (22-29); Chloride 101 mmol/L (98-107); Globulin 2.5 g/dL (1.3-4.6); Glomerular Filtration Rate 78.3 mL/min (90-130); Glucose 103 mg/dL (65-115); Lipase 17 U/L (13-60); Magnesium 1.9 mg/dL (1.7-2.3); Osmolality Calculated 281 mOsm/kg (285-295); Phosphorus 1.3 mg/dL (2.5-4.5); Potassium 3.1 mmol/L (3.5-5.1); Sodium 135 mmol/L (136-145); Total Bilirubin 0.5 mg/dL (0.15-1.2); Total Protein 7.1 g/dL (6.6-8.7); Troponin T (5th) Once 7 ng/L (0-10)
[2021-11-30] MEDS: iohexol 350 mg/mL 100 mL Btl IV (02:37)
[2021-11-30 02:44] LABS: Alcohol Level < 10 mg/dL (0-10)
[2021-11-30 03:41] LABS: Add Urine Microscopic? YES; Bilirubin Urine Neg (Negative); Blood Urine Neg (Negative); Glucose Urine UA Norm (Normal); Ketones Urine 2+ (Negative); Leukocyte Esterase Urine 1+ (Negative); Nitrate Urine Negative (Negative); Protein Urine Trace (Negative); Urine Appearance Clear (CLEAR); Urine Color Yellow (Yellow); Urobilinogen Urine Norm (Negative); pH Urine 5 (5-7)
[2021-11-30 03:42] LABS: Add Urine Culture? No; Bacteria Urine TRACE /hpf; RBC Urine 0-4 /hpf (0-2); Squamous Epithelial Cell Urine 0-4 /hpf (0-5)
[2021-11-30 03:44] LABS: Amphetamines Screen Urine Negative (Negative); Barbiturates Screen Urine Negative (Negative); Benzodiazepines Screen Urine Negative (Negative); Cocaine Screen Urine Negative (Negative); Opiate Screen Urine Positive (Negative); PCP Screen Urine Negative (Negative); THC Screen Urine Positive (Negative)
== END 2021-11-30 06:25 | disposition home or self-care (01) ==
PROVIDERS: Emergency Provider Emergency Medicine
DX: E83.39 Other disorders of phosphorus metabolism (principal); E87.6 Hypokalemia; R10.13 Epigastric pain; R11.10 Vomiting, unspecified; F17.210 Nicotine dependence, cigarettes, uncomplicated
CPT/HCPCS: 74177; 80053; 80306; 80307; 81001; 83690; 83735; 84100; 84484; 84703; 85025; 86140; 96365; 96366; 96375; 99284; J1170; J1630; J2405; J7030; Q9967

== ENCOUNTER 2022-06-27 14:40 | Emergency (ER) | payer MEDICAID, SELFPAY ==
[2022-06-27 14:56] VITALS: BP 128/97; PULSE 72; RESP 16; TEMP 36.7; O2SAT 96; BMI 32.3
--- NOTE | 2022-06-27 16:04 | PC.NURSE ---
straight cath performed by fitz bowden per dr. nimesh patten.
[2022-06-27] MEDS: sodium chloride 0.9% 1,000 ML 999 ML IV ×2 (16:05→18:48)
[2022-06-27 16:06] VITALS: RESP 20
[2022-06-27] MEDS: morphine 4 mg/mL SDV 1 mL IVP ×2 (16:06→19:28)
[2022-06-27] MEDS: ondansetron 2 mg/ML SDV 2 mL 4 MG IVP ×2 (16:10→19:28)
[2022-06-27 16:16] LABS: Basophils % 0.2 %; Hematocrit 37.4 % (37.0-47.0); Hemoglobin 12.7 g/dL (11.5-15.3); Lymphocytes # 0.9 10^3/uL (0.8-4.8); Lymphocytes % 7.4 %; Mean Corpuscular Hemoglobin 28.7 pg (28.0-34.0); Mean Corpuscular Volume 84.4 fl (81-99); Mean Platelet Volume 11.8 fL (7.4-10.4); Monocytes # 0.5 10^3/uL (0.2-0.9); Neutrophils % 87.9 %; Nucleated Red Blood Cells % 0 %; Platelet Count 261 10^3/cmm (130-400); Red Blood Count 4.43 10^6/uL (4.1-5.3); Red Cell Distribution Width 14.6 % (12.1-15.1)
--- NOTE | 2022-06-27 16:31 | W.ED.ABDPA2 ---
Documented by User: Atilio Gramajo DO 07/05/22 07:55 HPI - Abdominal Pain General: Chief Complaint: Abdominal Pain Stated Complaint: left side abd pain, 10 weeks Time Seen by Provider: 06/27/22 15:37 Source: patient Mode of arrival: ambulatory Limitations: no limitations History of Present Illness: 22-year-old female female at 10 weeks gestation presents emergency room complaining of severe left flank pain and left upper quadrant abdominal pain. She denies any fever sweats chills no trauma she is currently 10 weeks . She has previously had a cholecystectomy. No dysuria urgency or frequency no history of renal stones. He presents as if she has a renal stone with the significant discomfort and continuously repositioning trying to find a comfortable position. MD elicited complaint: flank pain Onset (ago): hour(s) Pain Consistency: constant Location: LUQ and L flank Severity: severe Quality: cramping Exacerbating factors: nothing Relieving factors: nothing Associated Symptoms: Denies anorexia, belching, bloating, change in bowel habits, change in stool character, chills, coffee ground emesis, constipation, GI cramping, diarrhea, dyspepsia, dysuria, excessive flatus, fever(s), heartburn, hematochezia, hematuria, hematemesis, fecal incontinence, loose stools, melena, nausea, poor appetite, syncope and vomiting Related Data: Date of Last Menstrual Period: 03/25/20 Review of Systems Const: Denies: fever(s), chills, fatigue or malaise ENMT: Denies: throat pain, ear or mastoid pain, nasal discharge or nasal congestion Card: Denies: chest pain, palpitations, irregular heart rhythm, edema or syncope Resp: Denies: dyspnea, productive cough or non-productive cough GI: Denies: nausea, vomiting, hematemesis, coffee ground emesis, heartburn, diarrhea, constipation, bloating, GI cramping, belching, excessive flatus, fecal incontinence, change in bowel habits, change in stool character, hematochezia or melena : Reports: flank pain; Denies: difficulty voiding, dysuria, urinary frequency, urinary urgency or hematuria Skin/Breast: Denies: rash or pruritus PFSH ED PFSH: Medical History No pertinent past medical history Surgical History Status post laparoscopic cholecystectomy (09/15/20) Family History Denies family history of Diabetes CAD (coronary artery disease) Family history of premature coronary artery disease Lung disease Cancer Hypertension Stroke Social History Smoking and tobacco status: current every day smoker cigarettes [ Other cigarette details: Reports occasional tobacco use, but not during ] Alcohol intake: never Household members: family Female Reproductive History: Date of last menstrual period: 03/25/20 Physical Exam Const: COMMON NORMALS: no acute distress GENERAL APPEARANCE: cooperative and comfortable ORIENTATION/CONSCIOUSNESS: Yes awake, Yes oriented to person, Yes oriented to place and Yes oriented to time HENMT: COMMON NORMALS: normocephalic, atraumatic and hearing grossly normal bilaterally HEAD & SCALP: normocephalic and atraumatic Resp: COMMON NORMALS: normal respiratory effort, No retractions, No use of accessory muscles and clear to auscultation bilaterally AUSCULTATION: clear to auscultation bilaterally Cardio: COMMON NORMALS: regular rate, regular rhythm and No murmurs present (Cardio) RATE: regular rate RHYTHM: regular rhythm GI: COMMON NORMALS: No hepatosplenomegaly present AUSCULTATION: Yes normoactive bowel sounds PALPATION: Yes Tenderness to palpation present (GI) (Left mid abdominal pain moderately tender), No Guarding due to palpation present (GI) and Yes No hepatosplenomegaly present Extremity: COMMON NORMALS: normal to inspection, capillary refill normal, no clubbing, cyanosis or edema, no calf tenderness and no pedal edema Neuro: SENSORIUM/ORIENTATION: Yes oriented to person, Yes oriented to place and Yes oriented to time Skin: COMMON NORMALS: no rashes or lesions noted GENERAL SKIN EXAM: no rashes or lesions noted Course Vital Signs: Vital signs: Vital Signs Temperature 98.1 F 06/27/22 14:56 Pulse Rate 72 06/27/22 14:56 Respiratory Rate 20 H 06/27/22 16:06 Blood Pressure 128/97 06/27/22 14:56 Pulse Oximetry 96 06/27/22 14:56 Oxygen Delivery Me thod 06/27/22 14:56 MDM - Abdominal Pain Medical Decision Making Labs and imaging reviewed. heart tones and bilateral renal ultrasound pending. Her urine showed ketones she is getting a second liter of fluid there was no blood. Care signed out to Dr. Krause at change of shift. See final notes for diagnosis and disposition. Medical Records I reviewed the patient's medical records. Lab Data I reviewed the patient's lab results. 06/27/22 16:09 06/27/22 16:09 Labs/Radiology: Radiology Impressions Renal Ultrasound 06/27/22 17:52 IMPRESSION: No acute findings. Ultrasound 06/27/22 19:03 IMPRESSION: 1. Single viable intrauterine gestation estimated at 10 weeks 5 days. Laboratory Results WBC 12.0 10^3/uL (4.0-10.0) H 06/27/22 16:09 RBC 4.43 10^6/uL (4.1-5.3) 06/27/22 16:09 Hgb 12.7 g/dL (11.5-15.3) 06/27/22 16:09 Hct 37.4 % (37.0-47.0) 06/27/22 16:09 MCV 84.4 fl (81-99) 06/27/22 16:09 MCH 28.7 pg (28.0-34.0) 06/27/22 16:09 MCHC 34.0 g/dL (30.0-36.0) 06/27/22 16:09 RDW 14.6 % (12.1-15.1) 06/27/22 16:09 Plt Count 261 10^3/cmm (130-400) 06/27/22 16:09 MPV 11.8 fL (7.4-10.4) H 06/27/22 16:09 Neut % (Auto) 87.9 % 06/27/22 16:09 Lymph % (Auto) 7.4 % 06/27/22 16:09 [place] % (Auto) 4.0 % 06/27/22 16:09 Eos % (Auto) 0.0 % 06/27/22 16:09 Baso % (Auto) 0.2 % 06/27/22 16:09 Neut # (Auto) 10.50 10^3/uL (1.8-7.7) H 06/27/22 16:09 Lymph # (Auto) 0.9 10^3/uL (0.8-4.8) 06/27/22 16:09 [place] # (Auto) 0.5 10^3/uL (0.2-0.9) 06/27/22 16:09 Eos # (Auto) 0.0 10^3/uL (0.0-0.8) 06/27/22 16:09 Baso # (Auto) 0.0 10^3/uL (0.0-0.1) 06/27/22 16:09 Nucleated RBC % (auto) 0 % 06/27/22 16:09 Nucleated RBCs # 0.0 /100WBC 06/27/22 16:09 Sodium 133 mmol/L (136-145) L 06/27/22 16:09 Potassium 3.4 mmol/L (3.5-5.1) L 06/27/22 16:09 Chloride 100 mmol/L (98-107) 06/27/22 16:09 Carbon Dioxide 17 mmol/L (22-29) L 06/27/22 16:09 Anion Gap 19.4 (5-19) H 06/27/22 16:09 BUN 15 mg/dL (6-20) 06/27/22 16:09 Creatinine 0.6 mg/dL (0.5-0.9) 06/27/22 16:09 GFR Calculation 123.9 mL/min (90-130) 06/27/22 16:09 Glucose 103 mg/dL (65-115) 06/27/22 16:09 Calculated Osmolality 277 mOsm/kg (285-295) L 06/27/22 16:09 Calcium 9.9 mg/dL (8.5-10.5) 06/27/22 16:09 Magnesium 1.8 mg/dL (1.7-2.3) 06/27/22 16:09 Total Bilirubin 0.9 mg/dL (0.15-1.2) 06/27/22 16:09 AST 24 U/L (0-32) 06/27/22 16:09 ALT 21 U/L (0-33) 06/27/22 16:09 Alkaline Phosphatase 69 U/L (35-105) 06/27/22 16:09 Total Protein 8.2 g/dL (6.6-8.7) 06/27/22 16:09 Albumin 4.2 g/dL (3.5-5.2) 06/27/22 16:09 Globulin 4.0 g/dL (1.3-4.6) 06/27/22 16:09 Lipase 29 U/L (13-60) 06/27/22 16:09 Ser , Semi-Qnt 321120.00 mIU/mL 06/27/22 16:09 Urine Color Yellow (Yellow) 06/27/22 16:05 Urine Appearance Clear (CLEAR) 06/27/22 16:05 Urine pH 5 (5-7) 06/27/22 16:05 Ur Specific [place] 1.025 (1.005-1.030) 06/27/22 16:05 Urine Protein Trace (Negative) 06/27/22 16:05 Urine Glucose (UA) Norm (Normal) 06/27/22 16:05 Urine Ketones 2+ (Negative) H 06/27/22 16:05 Urine Blood Neg (Negative) 06/27/22 16:05 Urine Nitrate Negative (Negative) 06/27/22 16:05 Urine Bilirubin Neg (Negative) 06/27/22 16:05 Urine Urobilinogen 1 mg/dL (Negative) H 06/27/22 16:05 Ur Leukocyte Esterase Negative (Negative) 06/27/22 16:05 Urine RBC None /hpf (0-2) 06/27/22 16:05 Urine WBC None /hpf (0-5) 06/27/22 16:05 Ur Squamous Epith Cells None /hpf (0-5) 06/27/22 16:05 Amorphous Sediment Not Reportable 06/27/22 16:05 Urine Bacteria None /hpf (NONE) 06/27/22 16:05 Discharge Plan Discharge Patient Disposition: Home Clinical Impression: , Left lateral abdominal pain Condition: Stable Prescriptions: New Percocet 7.5-325 mg tablet 1 tab PO Q6H PRN (Reason: pain) Qty: 7 0RF ondansetron 4 mg film 4 mg PO DAILY PRN (Reason: nausea and vomiting) Qty: 10 0RF Discontinued ibuprofen 200 mg Tablet 400 mg PO Q6H PRN (Reason: Pain) No Action famotidine 20 mg tablet 20 mg PO Q12H Discharge Orders: Discharge ED (Routine); Ordered 06/27/22 Ordered By: Jasiel Krause Patient Instructions: Abdominal Pain (ED), Opioid Safety, Pain Management Activity Restrictions/Additional Instructions: Clear liquid diet for the next 24 hours, then add food slowly. Monitor for fever. Return to the ER for fever greater than 100, any vaginal or rectal bleeding, worsening pain despite treatment, any other concerning symptoms. Coding Level of Care Code ED Net Developer Consultant for [employer] Documented by User: Jasiel Krause DO 06/28/22 16:08 HPI - Abdominal Pain General: Chief Complaint: Abdominal Pain Stated Complaint: left side abd pain, 10 weeks Time Seen by Provider: 06/27/22 15:37 PFSH ED PFSH: Medical History No pertinent past medical history Surgical History Status post laparoscopic cholecystectomy (09/15/20) Family History Denies family history of Diabetes CAD (coronary artery disease) Family history of premature coronary artery disease Lung disease Cancer Hypertension Stroke Social History Smoking and tobacco status: current every day smoker cigarettes [ Other cigarette details: Reports occasional tobacco use, but not during ] Alcohol intake: never Household members: family Course Vital Signs: Vital signs: Vital Signs Temperature 98.1 F 06/27/22 14:56 Pulse Rate 72 06/27/22 14:56 Respiratory Rate 20 H 06/27/22 16:06 Blood Pressure 128/97 06/27/22 14:56 Pulse Oximetry 96 06/27/22 14:56 Oxygen Delivery Me thod 06/27/22 14:56 MDM - Abdominal Pain Medical Decision Making Labs and imaging reviewed. heart tones and bilateral renal ultrasound pending. Her urine showed ketones she is getting a second liter of fluid there was no blood. Care signed out to Dr. Krause at change of shift. See final notes for diagnosis and disposition. 22-year-old checked out to me by Dr. Gramajo at shift change. This lady has a left mid quadrant pain. It is improved now after medications and fluid. Her white blood cell count is 12. 88% neutrophils. Liver enzymes are normal. Potassium is mildly low. She has 2+ ketones in her urine but no infection. Ultrasound of the kidneys shows no hydronephrosis and normal appearing kidneys. OB ultrasound shows intrauterine at 10 weeks 5 days gestation (appropriate) with no pelvic free fluid, normal flow to ovaries, etc. No history of diarrhea. The patient is vomiting. With left-sided pain, and no diarrhea, feel that CT is not necessarily warranted at this point with improvement in her symptoms. We will allow her home on liquid diet, symptom control, and to return if worsening. Lab Data 06/27/22 16:09 06/27/22 16:09 Labs/Radiology: Radiology Impressions Renal Ultrasound 06/27/22 17:52 IMPRESSION: No acute findings. Ultrasound 06/27/22 19:03 IMPRESSION: 1. Single viable intrauterine gestation estimated at 10 weeks 5 days. Laboratory Results WBC 12.0 10^3/uL (4.0-10.0) H 06/27/22 16:09 RBC 4.43 10^6/uL (4.1-5.3) 06/27/22 16:09 Hgb 12.7 g/dL (11.5-15.3) 06/27/22 16:09 Hct 37.4 % (37.0-47.0) 06/27/22 16:09 MCV 84.4 fl (81-99) 06/27/22 16:09 MCH 28.7 pg (28.0-34.0) 06/27/22 16:09 MCHC 34.0 g/dL (30.0-36.0) 06/27/22 16:09 RDW 14.6 % (12.1-15.1) 06/27/22 16:09 Plt Count 261 10^3/cmm (130-400) 06/27/22 16:09 MPV 11.8 fL (7.4-10.4) H 06/27/22 16:09 Neut % (Auto) 87.9 % 06/27/22 16:09 Lymph % (Auto) 7.4 % 06/27/22 16:09 [place] % (Auto) 4.0 % 06/27/22 16:09 Eos % (Auto) 0.0 % 06/27/22 16:09 Baso % (Auto) 0.2 % 06/27/22 16:09 Neut # (Auto) 10.50 10^3/uL (1.8-7.7) H 06/27/22 16:09 Lymph # (Auto) 0.9 10^3/uL (0.8-4.8) 06/27/22 16:09 [place] # (Auto) 0.5 10^3/uL (0.2-0.9) 06/27/22 16:09 Eos # (Auto) 0.0 10^3/uL (0.0-0.8) 06/27/22 16:09 Baso # (Auto) 0.0 10^3/uL (0.0-0.1) 06/27/22 16:09 Nucleated RBC % (auto) 0 % 06/27/22 16:09 Nucleated RBCs # 0.0 /100WBC 06/27/22 16:09 Sodium 133 mmol/L (136-145) L 06/27/22 16:09 Potassium 3.4 mmol/L (3.5-5.1) L 06/27/22 16:09 Chloride 100 mmol/L (98-107) 06/27/22 16:09 Carbon Dioxide 17 mmol/L (22-29) L 06/27/22 16:09 Anion Gap 19.4 (5-19) H 06/27/22 16:09 BUN 15 mg/dL (6-20) 06/27/22 16:09 Creatinine 0.6 mg/dL (0.5-0.9) 06/27/22 16:09 GFR Calculation 123.9 mL/min (90-130) 06/27/22 16:09 Glucose 103 mg/dL (65-115) 06/27/22 16:09 Calculated Osmolality 277 mOsm/kg (285-295) L 06/27/22 16:09 Calcium 9.9 mg/dL (8.5-10.5) 06/27/22 16:09 Magnesium 1.8 mg/dL (1.7-2.3) 06/27/22 16:09 Total Bilirubin 0.9 mg/dL (0.15-1.2) 06/27/22 16:09 AST 24 U/L (0-32) 06/27/22 16:09 ALT 21 U/L (0-33) 06/27/22 16:09 Alkaline Phosphatase 69 U/L (35-105) 06/27/22 16:09 Total Protein 8.2 g/dL (6.6-8.7) 06/27/22 16:09 Albumin 4.2 g/dL (3.5-5.2) 06/27/22 16:09 Globulin 4.0 g/dL (1.3-4.6) 06/27/22 16:09 Lipase 29 U/L (13-60) 06/27/22 16:09 Ser , Semi-Qnt 241587.00 mIU/mL 06/27/22 16:09 Urine Color Yellow (Yellow) 06/27/22 16:05 Urine Appearance Clear (CLEAR) 06/27/22 16:05 Urine pH 5 (5-7) 06/27/22 16:05 Ur Specific [place] 1.025 (1.005-1.030) 06/27/22 16:05 Urine Protein Trace (Negative) 06/27/22 16:05 Urine Glucose (UA) Norm (Normal) 06/27/22 16:05 Urine Ketones 2+ (Negative) H 06/27/22 16:05 Urine Blood Neg (Negative) 06/27/22 16:05 Urine Nitrate Negative (Negative) 06/27/22 16:05 Urine Bilirubin Neg (Negative) 06/27/22 16:05 Urine Urobilinogen 1 mg/dL (Negative) H 06/27/22 16:05 Ur Leukocyte Esterase Negative (Negative) 06/27/22 16:05 Urine RBC None /hpf (0-2) 06/27/22 16:05 Urine WBC None /hpf (0-5) 06/27/22 16:05 Ur Squamous Epith Cells None /hpf (0-5) 06/27/22 16:05 Amorphous Sediment Not Reportable 06/27/22 16:05 Urine Bacteria None /hpf (NONE) 06/27/22 16:05 Discharge Plan Discharge Patient Disposition: Home Clinical Impression: , Left lateral abdominal pain Condition: Stable Prescriptions: New Percocet 7.5-325 mg tablet 1 tab PO Q6H PRN (Reason: pain) Qty: 7 0RF ondansetron 4 mg film 4 mg PO DAILY PRN (Reason: nausea and vomiting) Qty: 10 0RF Discontinued ibuprofen 200 mg Tablet 400 mg PO Q6H PRN (Reason: Pain) No Action famotidine 20 mg tablet 20 mg PO Q12H Discharge Orders: Discharge ED (Routine); Ordered 06/27/22 Ordered By: Jasiel Krause Patient Instructions: Abdominal Pain (ED), Opioid Safety, Pain Management Activity Restrictions/Additional Instructions: Clear liquid diet for the next 24 hours, then add food slowly. Monitor for fever. Return to the ER for fever greater than 100, any vaginal or rectal bleeding, worsening pain despite treatment, any other concerning symptoms. Coding Level of Care Code ED Net Developer Consultant for Saurabh Loza
[2022-06-27 16:54] LABS: Alanine Aminotransferase 21 U/L (0-33); Albumin Level 4.2 g/dL (3.5-5.2); Alkaline Phosphatase 69 U/L (35-105); Anion Gap 19.4 (5-19); Aspartate Amino Transferase 24 U/L (0-32); Blood Urea Nitrogen 15 mg/dL (6-20); Calcium 9.9 mg/dL (8.5-10.5); Carbon Dioxide 17 mmol/L (22-29); Chloride 100 mmol/L (98-107); Glomerular Filtration Rate 123.9 mL/min (90-130); Glucose 103 mg/dL (65-115); Lipase 29 U/L (13-60); Magnesium 1.8 mg/dL (1.7-2.3); Osmolality Calculated 277 mOsm/kg (285-295); Potassium 3.4 mmol/L (3.5-5.1); Sodium 133 mmol/L (136-145); Total Bilirubin 0.9 mg/dL (0.15-1.2); Total Protein 8.2 g/dL (6.6-8.7)
[2022-06-27 17:32] LABS: Specific Gravity, Urine 1.025 (1.005-1.030); Urine Appearance Clear (CLEAR); Urine Color Yellow (Yellow); pH Urine 5 (5-7)
[2022-06-27 17:33] LABS: Add Urine Microscopic? YES; Bilirubin Urine Neg (Negative); Blood Urine Neg (Negative); Glucose Urine UA Norm (Normal); Ketones Urine 2+ (Negative); Leukocyte Esterase Urine Negative (Negative); Nitrate Urine Negative (Negative); Protein Urine Trace (Negative); Urobilinogen Urine 1 mg/dL (Negative)
--- NOTE | 2022-06-27 17:52 | USR_ITS ---
PROCEDURE INFORMATION: Exam: US Retroperitoneal; Complete; Kidneys and Bladder Exam date and time: 06/27/2022 6:03 PM Age: 22 years old Clinical indication: Abdominal pain; Flank; Left; Patient HX: Patient is 10 weeks ; Additional info: Flank pain/ TECHNIQUE: Imaging protocol: Real-time ultrasound of the retroperitoneum with image documentation. Complete exam focused on the kidneys and bladder. COMPARISON: US gall bladder [id number] 09/14/2020 7:05 PM FINDINGS: Right kidney: 12.5 x 5.2 x 4.4 cm. No mass, cyst, calculus, or hydronephrosis. Left kidney: 11.8 x 5.3 x 5.4 cm. No mass, cyst, calculus, or hydronephrosis. Urinary bladder: Normal size and contour. Bilateral ureteral jets visualized. US/US renal BI* [id number] IMPRESSION: No acute findings.
[2022-06-27 18:21] LABS: Add Urine Culture? No
--- NOTE | 2022-06-27 19:03 | USR_ITS ---
PROCEDURE INFORMATION: Exam: US First Trimester, Transabdominal Exam date and time: 06/27/2022 7:43 PM Age: 22 years old Clinical indication: Other: Llq pain; Gestational age or lmp: 10; ; Additional info: Left lower abd pain LABS AND CLINICAL REPORTS: Serum Choriogonadotropin (HCG): 595073 mIU/mL Last menstrual period start date: 05/14/2022 Estimated due date (Established): 02/18/2023 TECHNIQUE: Imaging protocol: Real-time transabdominal obstetrical ultrasound of the maternal pelvis and a first trimester , less than 14 weeks 0 days, with image documentation. COMPARISON: US gall bladder [id number] 09/14/2020 7:05 PM FINDINGS: GESTATION: Gestation: Urine single intrauterine gestation is visualized. pole is visualized. Yolk sac is visualized. Embryonic/ heart rate: 164 bpm Extra-embryonic membranes/Placenta: Unremarkable. No subchorionic bleed. Amniotic fluid: Amniotic and extra-amniotic fluid are normal for gestational age. BIOMETRY: Gestational age (AUA): 10 w 5 d Estimated due date (AUA): 01/18/2023 MATERNAL: Uterus: Uterus measures 10.8 cm x 8.4 cm x 7 cm. Cervix: Suboptimally visualized. Right ovary/adnexa: Right ovary measures 3.7 cm x 1.7 cm x 2.4 cm. Right ovarian volume is 7.8 mL. Normal blood flow. Left ovary/adnexa: Left ovary measures 3.5 cm x 2.2 cm x 1.3 cm. Left ovarian volume is 5.5 mL. Normal blood flow. Intraperitoneal space: No intraperitoneal free fluid. US/US OB <= 14 weeks fetus [id number] IMPRESSION: 1. Single viable intrauterine gestation estimated at 10 weeks 5 days.
[2022-06-27] MEDS: HYDROmorphone 1 mg/mL INJ 1 mL IVP (20:06)
--- NOTE | 2022-06-30 13:28 | DCPLANNER ---
Addendum entered by Pippa Michael 07/03/22 09:01: multimedia manager received to following message from the [facility] care clinic regarding follow up appointment: Tried to contact pt, number is no longer in service. I have mailed a referral letter to her. Original Note: multimedia manager had message to schedule a follow up appointment for patient with [facility]. multimedia manager sent patients information to the front office staff at [facility]. Patients information will be printed and reviewed. Clinic will call patient information.
== END 2022-06-27 22:05 | disposition home or self-care (01) ==
PROVIDERS: Family Medicine; Emergency Provider Emergency Medicine
DX: O26.891 Other specified pregnancy related conditions, first trimester (principal); R10.12 Left upper quadrant pain; Z3A.10 10 weeks gestation of pregnancy; F17.210 Nicotine dependence, cigarettes, uncomplicated
CPT/HCPCS: 76770; 76801; 76857; 80053; 81001; 83690; 83735; 84702; 85025; 96374; 96375; 96376; 99285; J1170; J2270; J2405; J7030

== ENCOUNTER → 2022-07-24 10:00 | Outpatient (BNVA) | payer MEDICAID, SELFPAY | PROVIDERS: Visit Provider Nurse Practitioner Women's Health | DX: Z34.90 Encounter for supervision of normal pregnancy, unspecified, unspecified trimester (principal) | CPT/HCPCS: 80307; 81000; 81025; 87086 ==

== ENCOUNTER 2022-07-28 15:50 | Outpatient (CLI) | payer MEDICAID, SELFPAY ==
[2022-07-28 16:28] LABS: Hematocrit 34.9 % (37.0-47.0); Hemoglobin 11.3 g/dL (11.5-15.3); Mean Corpuscular HGB Conc 32.4 g/dL (30.0-36.0); Mean Corpuscular Hemoglobin 28.8 pg (28.0-34.0); Mean Platelet Volume 11.1 fL (7.4-10.4); Platelet Count 250 10^3/cmm (130-400); Red Blood Count 3.92 10^6/uL (4.1-5.3); Red Cell Distribution Width 15.2 % (12.1-15.1); White Blood Count 8.8 10^3/uL (4.0-10.0)
[2022-07-28 17:11] LABS: HIV 1 & 2 Antibody Non-Reactive (Non-Reactiv); HIV 1 & 2 Antigen Non-Reactive (Non-Reactiv)
[2022-07-28 19:35] LABS: Hepatitis B Surface Antigen Non-Reactive (Nonreactive); Hepatitis C Virus Antibody Non-Reactive (Nonreactive)
[2022-07-28 19:39] LABS: Rapid Plasma Reagin Syphilis Nonreactive (Nonreactive)
[2022-07-28 20:21] LABS: Rubella IgG 0.7 IU/mL (0.0-10.0)
[2022-07-31 13:34] LABS: Prev. BX: NONE GIVEN
== END 2022-07-28 15:51 | disposition home or self-care (01) ==
LOC: LAB 15:53
PROVIDERS: Visit Provider Obstetrics & Gynecology
DX: O09.30 Supervision of pregnancy with insufficient antenatal care, unspecified trimester (principal); Z3A.00 Weeks of gestation of pregnancy not specified
CPT/HCPCS: 36415; 84315; 85027; 86592; 86762; 86803; 86850; 86900; 87086; 87340; 87491; 87591; 87661; 87806; 88175

== ENCOUNTER → 2022-08-21 13:00 | Outpatient (BNVA) | payer MEDICAID, SELFPAY | PROVIDERS: Visit Provider Nurse Practitioner Women's Health | DX: Z34.80 Encounter for supervision of other normal pregnancy, unspecified trimester (principal) | CPT/HCPCS: 81000; 82105 ==

== ENCOUNTER → 2022-10-02 14:19 | Outpatient (BNVA) | payer MEDICAID, SELFPAY | PROVIDERS: Visit Provider Obstetrics & Gynecology | DX: Z36.89 Encounter for other specified antenatal screening (principal) | CPT/HCPCS: 76805 ==

== ENCOUNTER → 2022-10-03 09:50 | Outpatient (BNVA) | payer MEDICAID, SELFPAY | PROVIDERS: Visit Provider Obstetrics & Gynecology | DX: Z34.80 Encounter for supervision of other normal pregnancy, unspecified trimester (principal) | CPT/HCPCS: 81000; 82950 ==

== ENCOUNTER → 2022-10-27 15:18 | Outpatient (BNVA) | payer MEDICAID, SELFPAY | PROVIDERS: Visit Provider Obstetrics & Gynecology | DX: Z34.80 Encounter for supervision of other normal pregnancy, unspecified trimester (principal) | CPT/HCPCS: 80307; 81000; 85025 ==

== ENCOUNTER → 2022-11-11 12:20 | Outpatient (BNVA) | payer MEDICAID, SELFPAY | PROVIDERS: Visit Provider Obstetrics & Gynecology | DX: Z34.80 Encounter for supervision of other normal pregnancy, unspecified trimester (principal) | CPT/HCPCS: 81000 ==

== ENCOUNTER → 2022-11-25 13:00 | Outpatient (BNVA) | payer MEDICAID, SELFPAY | PROVIDERS: Visit Provider Obstetrics & Gynecology | DX: O09.30 Supervision of pregnancy with insufficient antenatal care, unspecified trimester (principal); R82.90 Unspecified abnormal findings in urine; Z3A.00 Weeks of gestation of pregnancy not specified | CPT/HCPCS: 84315; 87086 ==

== ENCOUNTER → 2022-12-09 09:30 | Outpatient (BNVA) | payer MEDICAID, SELFPAY | PROVIDERS: Visit Provider Nurse Practitioner Women's Health | DX: O99.013 Anemia complicating pregnancy, third trimester (principal); D64.9 Anemia, unspecified; O26.893 Other specified pregnancy related conditions, third trimester; R82.90 Unspecified abnormal findings in urine; Z3A.00 Weeks of gestation of pregnancy not specified | CPT/HCPCS: 81000; 85025; 87086 ==

== ENCOUNTER 2023-11-30 13:12 | Emergency (ER) | payer MEDICAID, SELFPAY ==
[2023-11-30 13:13] VITALS: BP 115/95; PULSE 57; RESP 18; TEMP 36.4; O2SAT 100
[2023-11-30 13:21] LABS: Basophils % 0.2 %; Eosinophils % 0.2 %; Hematocrit 38.7 % (36-47); Lymphocytes # 1.9 10^3/uL (0.8-4.8); Lymphocytes % 15.2 %; Mean Corpuscular HGB Conc 32.6 g/dL (30-55); Mean Corpuscular Hemoglobin 28.1 pg (27-33); Mean Corpuscular Volume 86.2 fl (85-98); Mean Platelet Volume 11.8 fL (7.4-10.4); Monocytes # 0.7 10^3/uL (0.2-0.9); Monocytes % 5.3 %; Neutrophils # 9.72 10^3/uL (1.8-7.7); Neutrophils % 78.7 %; Nucleated Red Blood Cells % 0 %; Platelet Count 278 10^3/cmm (157-399); Red Blood Count 4.49 10^6/uL (3.85-5.65); Red Cell Distribution Width 15.4 % (12.1-15.1); White Blood Count 12.35 10^3/uL (3.29-11.43)
[2023-11-30] MEDS: haloperidol inj 5 mg/mL INJ 1 mL 2.5 MG IVP (13:25)
[2023-11-30 13:27] VITALS: BP 115/95; PULSE 61; RESP 16; O2SAT 100
[2023-11-30] MEDS: LORazepam 2 mg/mL INJ 10 mL MDV IVP (13:27)
[2023-11-30 13:43] LABS: HCG, Serum Qual Negative (Negative)
[2023-11-30 13:46] LABS: Alanine Aminotransferase 15 U/L (0-33); Albumin Level 4.7 g/dL (3.5-5.2); Alkaline Phosphatase 69 U/L (35-105); Anion Gap 18.1 (5-19); Aspartate Amino Transferase 17 U/L (0-32); Blood Urea Nitrogen 18 mg/dL (6-20); Carbon Dioxide 20 mmol/L (22-29); Chloride 105 mmol/L (98-107); Globulin 3.7 g/dL (1.3-4.6); Glomerular Filtration Rate 88.1 mL/min (90-130); Glucose 92 mg/dL (65-115); Lipase 24 U/L (13-60); Osmolality Calculated 292 mOsm/kg (285-295); Potassium 3.1 mmol/L (3.5-5.1); Sodium 140 mmol/L (136-145); Total Bilirubin 0.9 mg/dL (0.15-1.2); Total Protein 8.4 g/dL (6.6-8.7)
--- NOTE | 2023-11-30 14:01 | ED_ITS ---
HPI - Nausea/Vomiting/Diarrhea 2 General: Chief complaint: Nausea/Vomiting/Diarrhea Stated complaint: ABD Pain Time Seen by Provider: 11/30/23 13:14 Source: patient Mode of arrival: ambulatory History of Present Illness: 23-year-old female presents emergency ro om with persistent nausea and vomiting she has been seen at other facilities over the last 3 days continues to have this persistent nausea vomiting she uses marijuana marijuana regularly. She denies any hematemesis or coffee-ground emesis no diarrhea no hematochezia. She has been seen with similar symptoms in the past. MD elicited complaint: nausea and vomiting Onset (ago): day(s) (3) Description of vomiting: watery and bilious Associated nausea: Yes Associated abdominal pain: Yes Location of pain: Diffuse Quality: sharp Exacerbating factors: none Relieving factors: none Associated symtoms: Reports nausea; Denies altered mental status, anxiety, bloating, change in vision, chest pain, cough, diaphoresis, decreased urine output, dizziness, dysuria, epistaxis, fatigue, fecal incontinence, fevers/chills, headache(s), anorexia, malaise, myalgias, numbness, palpitations, rash, short of breath, syncope, tenesmus, tinnitus or weakness Review of Systems 2 Const: Denies: fever(s), chills, fatigue, malaise or diaphoresis Eyes: Denies: change in vision ENMT: Denies: tinnitus or epistaxis Card: Denies: chest pain, palpitations or syncope Resp: Denies: dyspnea GI: Reports: abdominal pain and nausea; Denies: bloating or fecal incontinence : Denies: dysuria, urinary frequency or urinary urgency Musc: Denies: neck pain or back pain Skin/Breast: Denies: rash Neuro: Denies: headache(s) or dizziness Psych: Denies: anxiety PFSH ED 2 PFSH: Medical History Gastric ulcer No pertinent past medical history neghx: htn,dm,thyroid,dvt/pe PCP: None Surgical History Status post laparoscopic cholecystectomy (09/15/20) Family History Denies family history of Colon cancer Ovarian cancer Diabetes Heart disease Breast cancer Hypertension Uterine cancer Thyroid disease Stroke Social History Substance/Drug Use: never Physical Exam 2 Const: COMMON NORMALS: no acute distress EXAM LIMITATIONS: no altered mental status GENERAL APPEARANCE: cooperative and comfortable O RIENTATION/CONSCIOUSNESS: Yes awake, Yes oriented to person, Yes oriented to place and Yes oriented to time HENMT: COMMON NORMALS: normocephalic, atraumatic and hearing grossly normal bilaterally HEAD & SCALP: normocephalic and atraumatic Resp: COMMON NORMALS: normal respiratory effort, No retractions, No use of accessory muscles and clear to auscultation bilaterally AUSCULTATION: clear to auscultation bilaterally Cardio: COMMON NORMALS: regular rate, regular rhythm and No murmurs present (Cardio) RATE: regular rate RHYTHM: regular rhythm GI: COMMON NORMALS: Soft to palpation and No hepatosplenomegaly present A USCULTATION: Yes normoactive bowel sounds PALPATION: Yes Soft to palpation, No Tenderness to palpation present (GI), No Guarding due to palpation present (GI) and Yes No hepatosplenomegaly present Extremity: COMMON NORMALS: normal to inspection, capillary refill normal, no clubbing, cyanosis or edema, no calf tenderness and no pedal edema Neuro: SENSORIUM/ORIENTATION: Yes oriented to person, Yes oriented to place and Yes oriented to time Skin: COMMON NORMALS: no rashes or lesions noted GENERAL SKIN EXAM: no rashes or lesions noted Course 2 Vital Signs: Vital signs: Vital Signs Temperature 97.6 F 11/30/23 13:13 Pulse Rate 61 11/30/23 13:27 Respiratory Rate 16 11/30/23 13:27 Blood Pressure 103/49 11/30/23 15:22 Pulse Oximetry 100 11/30/23 13:27 Oxygen Delivery Me thod Room Air 11/30/23 13:27 MDM - Nausea/Vomiting/Diarrhea Medical Decision Making Nausea and vomiting improved. Patient does have mildly elevated white count but benign abdominal exam. I think her elevated white count is due to her persistent vomiting. Repeat exam was unremarkable. Discharge patient home clear liquid diet olanzapine and Ativan as needed avoid THC products return if has any worsening or changes symptoms. Medical Records I reviewed the patient's medical records. Lab Data I reviewed the patient's lab results. 11/30/23 13:14 11/30/23 13:14 Laboratory Results WBC 12.35 10^3/uL (3.29-11.43) H 11/30/23 13:14 RBC 4.49 10^6/uL (3.85-5.65) 11/30/23 13:14 Hgb 12.60 g/dL (11.27-16.99) 11/30/23 13:14 Hct 38.7 % (36-47) 11/30/23 13:14 MCV 86.2 fl (85-98) 11/30/23 13:14 MCH 28.1 pg (27-33) 11/30/23 13:14 MCHC 32.6 g/dL (30-55) 11/30/23 13:14 RDW 15.4 % (12.1-15.1) H 11/30/23 13:14 Plt Count 278 10^3/cmm (157-399) 11/30/23 13:14 MPV 11.8 fL (7.4-10.4) H 11/30/23 13:14 Neut % (Auto) 78.7 % 11/30/23 13:14 Lymph % (Auto) 15.2 % 11/30/23 13:14 Wake % (Auto) 5.3 % 11/30/23 13:14 Eos % (Auto) 0.2 % 11/30/23 13:14 Baso % (Auto) 0.2 % 11/30/23 13:14 Neut # (Auto) 9.72 10^3/uL (1.8-7.7) H 11/30/23 13:14 Lymph # (Auto) 1.9 10^3/uL (0.8-4.8) 11/30/23 13:14 Wake # (Auto) 0.7 10^3/uL (0.2-0.9) 11/30/23 13:14 Eos # (Auto) 0.0 10^3/uL (0.0-0.8) 11/30/23 13:14 Baso # (Auto) 0.0 10^3/uL (0.0-0.1) 11/30/23 13:14 Nucleated RBC % (auto) 0 % 11/30/23 13:14 Nucleated RBCs # 0.0 /100WBC 11/30/23 13:14 Sodium 140 mmol/L (136-145) 11/30/23 13:14 Potassium 3.1 mmol/L (3.5-5.1) L 11/30/23 13:14 Chloride 105 mmol/L (98-107) 11/30/23 13:14 Carbon Dioxide 20 mmol/L (22-29) L 11/30/23 13:14 Anion Gap 18.1 (5-19) 11/30/23 13:14 BUN 18 mg/dL (6-20) 11/30/23 13:14 Creatinine 0.8 mg/dL (0.5-0.9) 11/30/23 13:14 GFR Calculation 88.1 mL/min (90-130) L 11/30/23 13:14 Glucose 92 mg/dL (65-115) 11/30/23 13:14 Calculated Osmolality 292 mOsm/kg (285-295) 11/30/23 13:14 Calcium 10.0 mg/dL (8.5-10.5) 11/30/23 13:14 Total Bilirubin 0.9 mg/dL (0.15-1.2) 11/30/23 13:14 AST 17 U/L (0-32) 11/30/23 13:14 ALT 15 U/L (0-33) 11/30/23 13:14 Alkaline Phosphatase 69 U/L (35-105) 11/30/23 13:14 Total Protein 8.4 g/dL (6.6-8.7) 11/30/23 13:14 Albumin 4.7 g/dL (3.5-5.2) 11/30/23 13:14 Globulin 3.7 g/dL (1.3-4.6) 11/30/23 13:14 Lipase 24 U/L (13-60) 11/30/23 13:14 HCG, Qual Negative (Negative) 11/30/23 13:14 All radiology interpretation(s) finalized by discharge Discharge Plan Discharge Patient Disposition: Home Clinical Impression: Cannabinoid hyperemesis syndrome Condition: Stable Prescriptions: New Ativan 2 mg tablet 2 mg PO Q6H PRN (Reason: nausea and vomiting) Qty: 10 0RF olanzapine 10 mg tablet,disintegrating 10 mg PO Q6H PRN (Reason: nausea and vomitting) Qty: 14 0RF No Action prenat.vits,navneet,pba-ozos-psitp Tablet 1 tab PO DAILY esomeprazole magnesium [Nexium] 20 mg capsule,delayed release(DR/EC) 40 mg PO DAILY Qty: 60 1RF ferrous sulfate 325 mg (65 mg iron) tablet,delayed release (DR/EC) 325 mg PO DAILY Qty: 60 3RF Discharge Orders: Discharge ED (Routine); Ordered 11/30/23 Ordered By: Atilio Gramajo Discharge Diet: Clear Liquid Discharge Activity: Increase activity as tolerated Patient Instructions: Opioid Safety, Pain Management Activity Restrictions/Additional Instructions: Thank you for choosing [facility] for your healthcare needs today. Please realize this is an emergency room and that we are providing you with a medical screening exam and this may not be complete and all inclusive of all the testing and or work up that you may need to determine your ailment or severity of your illness. It is very important that you follow up as instructed or that you return to the Emergency Department should you have concerns or if your condition changes or worsens in any way. You were seen today for nausea vomiting. Your laboratory test showed a mild elevation of your white count. Recommend clear liquid diet for the next 24 to 48 hours and advance as tolerated. You can use lorazepam or olanzapine as needed for persistent nausea and vomiting. Recommend avoiding THC products. Coding Level of Care Code ED Service Station Cashier for Saurabh Loza
[2023-11-30 15:22] VITALS: BP 103/49
== END 2023-11-30 15:25 | disposition home or self-care (01) ==
PROVIDERS: Emergency Provider Family Medicine
DX: R11.2 Nausea with vomiting, unspecified (principal); F12.90 Cannabis use, unspecified, uncomplicated
CPT/HCPCS: 80053; 83690; 84703; 85025; 96374; 96375; 99284; J1630; J2060